=== PATIENT | male | born 1955 | race Caucasian/White ===

== ENCOUNTER 2018-04-22 01:01 | Inpatient (IN) | payer MEDICARE ==
[2018-04-22] MEDS: NS 1,000 ML IV ×2 (01:30→02:00)
[2018-04-22 01:34] LABS: BASO # 0.1 10^3/uL (0.0-0.2); BASO % 0.6 % (0.0-1.0); EOS # 0.1 10^3/uL (0.0-0.50); EOS % 0.5 % (0.0-3.0); HEMATOCRIT 49.9 % (42.0-52.0); HEMOGLOBIN 16.4 g/dl (13.5-17.5); IMMATURE GRANULOCYTE % 0.4 % (0-3.0); LYMPH # 3.5 10^3/uL (1.5-4.5); LYMPH % 26.5 % (24.0-44.0); MEAN CORPUSCULAR HEMOGLOBIN 30.7 pg (27.0-33.0); MEAN CORPUSCULAR HGB CONC 32.9 g/dl (32.0-36.5); MEAN CORPUSCULAR VOLUME 93.3 fl (80.0-96.0); MONO # 0.4 10^3/uL (0.0-0.8); MONO % 3.1 % (0.0-5.0); NEUTROPHILS % 68.9 % (36.0-66.0); PLATELET COUNT, AUTOMATED 257 10^3/uL (150-450); RED BLOOD COUNT 5.35 10^6/uL (4.30-6.10); RED CELL DISTRIBUTION WIDTH 13.5 % (11.5-14.5); WHITE BLOOD COUNT 13.1 10^3/uL (4.0-10.0)
[2018-04-22 01:37] LABS: BEDSIDE GLUCOSE 544 MG/DL (80-115)
[2018-04-22] MEDS ORDERED: HumuLIN R (REGULAR) INSULIN (NovoLIN R) **100U/ML** PER UNIT As Ordered (01:37)
[2018-04-22] MEDS: HumuLIN R (REGULAR) INSULIN (NovoLIN R) **100U/ML** PER UNIT IV ×2 (01:39→02:30)
[2018-04-22] MEDS: INSULIN HUMAN REGULAR 100 UNITS in NS 99 ML IV ×2 (01:45→05:19)
[2018-04-22] MEDS: METOCLOPRAMIDE INJ 10MG/2ML VIAL (J2765) IV (01:59)
[2018-04-22 02:07] LABS: ACETONE/KETONE > 46.00 MG/DL (<2.81); ALBUMIN 3.4 GM/DL (3.2-5.2); ALKALINE PHOSPHATASE 58 U/L (45-117); ALT/SGPT 19 U/L (12-78); ANION GAP 32 MEQ/L (8-16); AST/SGOT 11 U/L (7-37); BILIRUBIN,DIRECT 0.2 MG/DL (0.0-0.2); BILIRUBIN,TOTAL 0.5 MG/DL (0.2-1.0); BLOOD UREA NITROGEN 38 MG/DL (7-18); CALCIUM LEVEL 8.8 MG/DL (8.8-10.2); CARBON DIOXIDE LEVEL 8 MEQ/L (21-32); CHLORIDE LEVEL 97 MEQ/L (98-107); CPK CREATINE PHOSPHOKINASE 44 U/L (39-308); CREATININE FOR GFR 2.12 MG/DL (0.70-1.30); GLOMERULAR FILTRATION RATE 33.5 (>49); GLUCOSE, FASTING 567 MG/DL (70-100); LIPASE 37 U/L (73-393); MB/CK RELATIVE INDEX 2.95 (< OR =4); POTASSIUM SERUM 4.7 MEQ/L (3.5-5.1); SODIUM LEVEL 137 MEQ/L (136-145); TOTAL PROTEIN 6.8 GM/DL (6.4-8.2); TROPONIN I < 0.02 NG/ML (< 0.10)
[2018-04-22 02:27] LABS: BEDSIDE GLUCOSE 519 MG/DL (80-115)
[2018-04-22 02:59] LABS: VENOUS BASE EXCESS -23.7 (-2.0-2.0); VENOUS HCO3 5.6 MEQ/L (23.0-27.0); VENOUS PARTIAL PRESSURE CO2 21.9 mmHg (38.0-50.0); VENOUS PARTIAL PRESSURE O2 75.6 mmHg (30.0-50.0); VENOUS PH 7.027 UNITS (7.330-7.430); VENOUS STANDARD HCO3 8.6 MEQ/L; VENOUS TOTAL CO2 6.3 MEQ/L (24.0-28.0)
[2018-04-22] MEDS ORDERED: IPRATROPIUM 0.5MG/ALBUTEROL 2.5MG INH SOL UD 3ML (DUONEB)(J7620) NEB (03:00)
[2018-04-22 03:03] LABS: BEDSIDE GLUCOSE 479 MG/DL (80-115)
[2018-04-22 03:21] LABS: ESTIMATED AVERAGE GLUCOSE 312 MG/DL (60-110); HEMOGLOBIN A1c 12.5 %
[2018-04-22] MEDS ORDERED: ONDANSETRON 4MG/2ML VIAL (J2405) IV (03:30)
[2018-04-22] MEDS: NICOTINE 21MG/24HR 1 EA TRANSDERMAL TD (03:51)
[2018-04-22] MEDS: SODIUM BICARBONATE 8.4% INJ 50 ML SYRINGE IV (03:51)
[2018-04-22 03:59] LABS: BEDSIDE GLUCOSE 449 MG/DL (80-115)
[2018-04-22 04:40] LABS: APPEARANCE, URINE CLEAR (CLEAR); BACTERIA, URINE AUTO NEGATIVE (NEGATIVE); BILIRUBIN, URINE AUTO NEGATIVE (NEGATIVE); BLOOD, URINE BLOOD 1+ (NEGATIVE); COLOR, URINE YELLOW (YELLOW); GLUCOSE, URINE (UA) AUTO 3+ mg/dL (NEGATIVE); KETONE, URINE AUTO 2+ mg/dL (NEGATIVE); LEUKOCYTE ESTERASE, URINE AUTO NEGATIVE (NEGATIVE); NITRITE, URINE AUTO NEGATIVE (NEGATIVE); PROTEIN, URINE AUTO 2+ mg/dL (NEGATIVE); RBC, URINE AUTO 0 /HPF (0-3); SQUAMOUS EPITHELIAL CELL UR AU 0 /HPF (0-6); UROBILINOGEN, URINE AUTO 0.2 mg/dL (0.0-2.0); WBC, URINE AUTO 0 /HPF (0-3)
[2018-04-22 04:55] LABS: VENOUS HCO3 7.8 MEQ/L (23.0-27.0); VENOUS O2 SATURATION 92.3 % (60.0-80.0); VENOUS PARTIAL PRESSURE CO2 22.5 mmHg (38.0-50.0); VENOUS PARTIAL PRESSURE O2 68.3 mmHg (30.0-50.0); VENOUS PH 7.157 UNITS (7.330-7.430); VENOUS STANDARD HCO3 10.8 MEQ/L; VENOUS TOTAL CO2 8.5 MEQ/L (24.0-28.0)
[2018-04-22 05:20] LABS: ACETONE/KETONE > 46.00 MG/DL (<2.81)
[2018-04-22 05:21] LABS: ANION GAP 29 MEQ/L (8-16); BLOOD UREA NITROGEN 37 MG/DL (7-18); CALCIUM LEVEL 7.5 MG/DL (8.8-10.2); CARBON DIOXIDE LEVEL 11 MEQ/L (21-32); CHLORIDE LEVEL 101 MEQ/L (98-107); GLOMERULAR FILTRATION RATE 43.3 (>49); GLUCOSE, FASTING 423 MG/DL (70-100); POTASSIUM SERUM 3.6 MEQ/L (3.5-5.1); SODIUM LEVEL 141 MEQ/L (136-145)
[2018-04-22 05:25] LABS: BEDSIDE GLUCOSE 382 MG/DL (80-115)
[2018-04-22] MEDS ORDERED: GLUCAGON FOR INJ 1 MG VIAL (J1610) SC (05:30)
[2018-04-22] MEDS ORDERED: GLUCOSE 4 GM CHEW TABLET PO (05:30)
[2018-04-22] MEDS ORDERED: DEXTROSE 50% 50 ML SYRINGE IV (05:30)
[2018-04-22 06:00] LABS: BEDSIDE GLUCOSE 325 MG/DL (80-115)
[2018-04-22] MEDS: INSULIN IV RATE CHANGE DOCUMENTATION ML/HR XX ×3 (06:04→17:05)
[2018-04-22] MEDS: POTASSIUM CHLORIDE 10 MEQ SR TABLET PO (06:21)
[2018-04-22] MEDS ORDERED: INFLUENZA VIRUS VACCINE HIGH DOSE 0.5 ML SYRINGE (90662) IM (06:30)
[2018-04-22] MEDS ORDERED: PREVNAR 13 VACCINE SYRINGE (CPT CODE:90670) IM (06:30)
[2018-04-22] MEDS: KCL 20MEQ IN 0.45NS 1000ML 1,000 ML IV ×2 (06:46→14:47)
[2018-04-22 06:52] LABS: BEDSIDE GLUCOSE 258 MG/DL (80-115)
[2018-04-22 07:53] LABS: BEDSIDE GLUCOSE 245 MG/DL (80-115)
[2018-04-22] MEDS: PREGABALIN 100 MG CAP (LYRICA) PO ×3 (08:08→20:25)
[2018-04-22] MEDS: APIXABAN 5 MG TAB (ELIQUIS) PO ×2 (08:08→20:25)
[2018-04-22] MEDS: ATORVASTATIN 20 MG TAB PO (08:08)
[2018-04-22] MEDS: PANTOPRAZOLE 40MG INJ (PROTONIX) (C9113) IV (08:08)
[2018-04-22 08:31] LABS: CPK CREATINE PHOSPHOKINASE 55 U/L (39-308); MB/CK RELATIVE INDEX 3.45 (< OR =4); TROPONIN I < 0.02 NG/ML (< 0.10)
[2018-04-22 08:56] LABS: BEDSIDE GLUCOSE 248 MG/DL (80-115)
[2018-04-22 09:54] LABS: BEDSIDE GLUCOSE 251 MG/DL (80-115)
[2018-04-22 10:47] LABS: VENOUS BASE EXCESS -7.6 (-2.0-2.0); VENOUS HCO3 15.5 MEQ/L (23.0-27.0); VENOUS O2 SATURATION 99.3 % (60.0-80.0); VENOUS PARTIAL PRESSURE CO2 26.2 mmHg (38.0-50.0); VENOUS STANDARD HCO3 18.5 MEQ/L; VENOUS TOTAL CO2 16.3 MEQ/L (24.0-28.0)
[2018-04-22 11:04] LABS: BEDSIDE GLUCOSE 283 MG/DL (80-115)
[2018-04-22 11:21] LABS: ANION GAP 20 MEQ/L (8-16); BLOOD UREA NITROGEN 37 MG/DL (7-18); CALCIUM LEVEL 8.1 MG/DL (8.8-10.2); CARBON DIOXIDE LEVEL 16 MEQ/L (21-32); CHLORIDE LEVEL 106 MEQ/L (98-107); CREATININE FOR GFR 1.56 MG/DL (0.70-1.30); GLOMERULAR FILTRATION RATE 47.8 (>49); GLUCOSE, FASTING 256 MG/DL (70-100); SODIUM LEVEL 142 MEQ/L (136-145)
[2018-04-22 11:55] LABS: BEDSIDE GLUCOSE 257 MG/DL (80-115)
[2018-04-22 13:20] LABS: BEDSIDE GLUCOSE 248 MG/DL (80-115)
[2018-04-22 14:06] LABS: BEDSIDE GLUCOSE 260 MG/DL (80-115)
[2018-04-22 14:12] LABS: ACETONE/KETONE > 46.00 MG/DL (<2.81)
[2018-04-22 15:06] LABS: BEDSIDE GLUCOSE 244 MG/DL (80-115)
[2018-04-22 15:21] LABS: ACETONE/KETONE > 46.00 MG/DL (<2.81)
[2018-04-22 16:19] LABS: BEDSIDE GLUCOSE 209 MG/DL (80-115)
[2018-04-22 16:40] LABS: VENOUS BASE EXCESS -5.2 (-2.0-2.0); VENOUS HCO3 19.9 MEQ/L (23.0-27.0); VENOUS O2 SATURATION 97.8 % (60.0-80.0); VENOUS PARTIAL PRESSURE CO2 37.4 mmHg (38.0-50.0); VENOUS PARTIAL PRESSURE O2 102.8 mmHg (30.0-50.0); VENOUS PH 7.344 UNITS (7.330-7.430); VENOUS STANDARD HCO3 20.3 MEQ/L; VENOUS TOTAL CO2 21.1 MEQ/L (24.0-28.0)
[2018-04-22 17:05] LABS: BEDSIDE GLUCOSE 188 MG/DL (80-115)
[2018-04-22 17:24] LABS: ANION GAP 12 MEQ/L (8-16); BLOOD UREA NITROGEN 33 MG/DL (7-18); CALCIUM LEVEL 8.2 MG/DL (8.8-10.2); CARBON DIOXIDE LEVEL 23 MEQ/L (21-32); CHLORIDE LEVEL 106 MEQ/L (98-107); CREATININE FOR GFR 1.49 MG/DL (0.70-1.30); GLOMERULAR FILTRATION RATE 50.4 (>49); GLUCOSE, FASTING 206 MG/DL (70-100); POTASSIUM SERUM 3.9 MEQ/L (3.5-5.1); SODIUM LEVEL 141 MEQ/L (136-145)
[2018-04-22] MEDS: LEVEMIR (INSULIN DETEMIR) 1 UNITS/0.01ML SC (18:03)
[2018-04-22 18:08] LABS: BEDSIDE GLUCOSE 176 MG/DL (80-115)
[2018-04-22 19:01] LABS: BEDSIDE GLUCOSE 179 MG/DL (80-115)
[2018-04-22 19:19] LABS: VENOUS BASE EXCESS -3.4 (-2.0-2.0); VENOUS HCO3 20.3 MEQ/L (23.0-27.0); VENOUS O2 SATURATION 98.9 % (60.0-80.0); VENOUS PARTIAL PRESSURE CO2 32.7 mmHg (38.0-50.0); VENOUS PARTIAL PRESSURE O2 193.6 mmHg (30.0-50.0); VENOUS STANDARD HCO3 21.7 MEQ/L; VENOUS TOTAL CO2 21.3 MEQ/L (24.0-28.0)
[2018-04-22 19:56] LABS: BEDSIDE GLUCOSE 178 MG/DL (80-115)
[2018-04-22 20:10] LABS: ACETONE/KETONE 23.45 MG/DL (<2.81); ANION GAP 13 MEQ/L (8-16); BLOOD UREA NITROGEN 30 MG/DL (7-18); CALCIUM LEVEL 7.6 MG/DL (8.8-10.2); CARBON DIOXIDE LEVEL 21 MEQ/L (21-32); CHLORIDE LEVEL 107 MEQ/L (98-107); CREATININE FOR GFR 1.35 MG/DL (0.70-1.30); GLOMERULAR FILTRATION RATE 56.5 (>49); GLUCOSE, FASTING 175 MG/DL (70-100); POTASSIUM SERUM 3.8 MEQ/L (3.5-5.1); SODIUM LEVEL 141 MEQ/L (136-145)
[2018-04-22 21:10] LABS: ACETONE/KETONE 26.12 MG/DL (<2.81)
[2018-04-22 22:03] LABS: BEDSIDE GLUCOSE 294 MG/DL (80-115)
[2018-04-22] MEDS: HumaLOG INSULIN (NovoLOG) PER UNIT SC (22:13)
[2018-04-22 23:07] LABS: VENOUS BASE EXCESS -1.9 (-2.0-2.0); VENOUS HCO3 22.3 MEQ/L (23.0-27.0); VENOUS O2 SATURATION 97.7 % (60.0-80.0); VENOUS PARTIAL PRESSURE CO2 36.5 mmHg (38.0-50.0); VENOUS PH 7.404 UNITS (7.330-7.430); VENOUS STANDARD HCO3 22.9 MEQ/L; VENOUS TOTAL CO2 23.4 MEQ/L (24.0-28.0)
[2018-04-22 23:23] LABS: ANION GAP 9 MEQ/L (8-16); BLOOD UREA NITROGEN 28 MG/DL (7-18); CALCIUM LEVEL 7.5 MG/DL (8.8-10.2); CARBON DIOXIDE LEVEL 23 MEQ/L (21-32); CHLORIDE LEVEL 106 MEQ/L (98-107); CREATININE FOR GFR 1.54 MG/DL (0.70-1.30); GLOMERULAR FILTRATION RATE 48.5 (>49); GLUCOSE, FASTING 312 MG/DL (70-100); POTASSIUM SERUM 3.9 MEQ/L (3.5-5.1); SODIUM LEVEL 138 MEQ/L (136-145)
[2018-04-23 03:14] LABS: VENOUS BASE EXCESS -1.7 (-2.0-2.0); VENOUS HCO3 21.8 MEQ/L (23.0-27.0); VENOUS O2 SATURATION 97.4 % (60.0-80.0); VENOUS PARTIAL PRESSURE CO2 33.4 mmHg (38.0-50.0); VENOUS PARTIAL PRESSURE O2 94.3 mmHg (30.0-50.0); VENOUS PH 7.432 UNITS (7.330-7.430); VENOUS TOTAL CO2 22.8 MEQ/L (24.0-28.0)
[2018-04-23 03:34] LABS: ANION GAP 11 MEQ/L (8-16); BLOOD UREA NITROGEN 28 MG/DL (7-18); CARBON DIOXIDE LEVEL 23 MEQ/L (21-32); CHLORIDE LEVEL 108 MEQ/L (98-107); CREATININE FOR GFR 1.46 MG/DL (0.70-1.30); GLOMERULAR FILTRATION RATE 51.6 (>49); GLUCOSE, FASTING 296 MG/DL (70-100); POTASSIUM SERUM 3.7 MEQ/L (3.5-5.1); SODIUM LEVEL 142 MEQ/L (136-145)
[2018-04-23 07:15] LABS: BASO % 0.5 % (0.0-1.0); EOS # 0.3 10^3/uL (0.0-0.50); EOS % 3.7 % (0.0-3.0); HEMATOCRIT 38.7 % (42.0-52.0); IMMATURE GRANULOCYTE % 0.1 % (0-3.0); LYMPH # 2.8 10^3/uL (1.5-4.5); LYMPH % 32.5 % (24.0-44.0); MEAN CORPUSCULAR HEMOGLOBIN 31.2 pg (27.0-33.0); MEAN CORPUSCULAR HGB CONC 35.7 g/dl (32.0-36.5); MEAN CORPUSCULAR VOLUME 87.4 fl (80.0-96.0); MONO # 0.6 10^3/uL (0.0-0.8); MONO % 6.8 % (0.0-5.0); NEUTROPHILS # 4.9 10^3/uL (1.8-7.7); NEUTROPHILS % 56.4 % (36.0-66.0); PLATELET COUNT, AUTOMATED 166 10^3/uL (150-450); RED BLOOD COUNT 4.43 10^6/uL (4.30-6.10); RED CELL DISTRIBUTION WIDTH 13.3 % (11.5-14.5); WHITE BLOOD COUNT 8.6 10^3/uL (4.0-10.0)
[2018-04-23 07:22] LABS: HEMOGLOBIN 13.8 g/dl (13.5-17.5)
[2018-04-23 07:36] LABS: ACETONE/KETONE 19.71 MG/DL (<2.81)
[2018-04-23] MEDS: LEVEMIR (INSULIN DETEMIR) 1 UNITS/0.01ML SC ×2 (07:53→21:00)
[2018-04-23] MEDS: HumaLOG INSULIN (NovoLOG) PER UNIT SC ×4 (07:54→21:04)
[2018-04-23] MEDS: MIRALAX *UNIT DOSE* 17GM PACKET PO (08:51)
[2018-04-23] MEDS: PREGABALIN 100 MG CAP (LYRICA) PO ×3 (08:51→21:03)
[2018-04-23] MEDS: PANTOPRAZOLE 40MG INJ (PROTONIX) (C9113) IV (08:51)
[2018-04-23] MEDS: ATORVASTATIN 20 MG TAB PO (08:51)
[2018-04-23] MEDS: SENOKOT S TAB PO (08:51)
[2018-04-23] MEDS: APIXABAN 5 MG TAB (ELIQUIS) PO ×2 (08:51→21:03)
[2018-04-23] MEDS ORDERED: LEVEMIR (INSULIN DETEMIR) 1 UNITS/0.01ML SC (09:00)
[2018-04-23 11:59] LABS: BEDSIDE GLUCOSE 313 MG/DL (80-115)
[2018-04-23 17:08] LABS: BEDSIDE GLUCOSE 386 MG/DL (80-115)
[2018-04-23 20:51] LABS: BEDSIDE GLUCOSE 492 MG/DL (80-115)
[2018-04-23] MEDS: NICOTINE 21MG/24HR 1 EA TRANSDERMAL TD (21:04)
[2018-04-24 06:05] LABS: BEDSIDE GLUCOSE 129 MG/DL (80-115)
[2018-04-24 06:37] LABS: BASO % 0.6 % (0.0-1.0); EOS # 0.3 10^3/uL (0.0-0.50); EOS % 5.1 % (0.0-3.0); HEMATOCRIT 37.6 % (42.0-52.0); HEMOGLOBIN 13.3 g/dl (13.5-17.5); IMMATURE GRANULOCYTE % 0.2 % (0-3.0); LYMPH # 2.4 10^3/uL (1.5-4.5); LYMPH % 36.4 % (24.0-44.0); MEAN CORPUSCULAR HEMOGLOBIN 31.1 pg (27.0-33.0); MEAN CORPUSCULAR HGB CONC 35.4 g/dl (32.0-36.5); MEAN CORPUSCULAR VOLUME 87.9 fl (80.0-96.0); MONO # 0.5 10^3/uL (0.0-0.8); MONO % 7.7 % (0.0-5.0); NEUTROPHILS # 3.3 10^3/uL (1.8-7.7); PLATELET COUNT, AUTOMATED 133 10^3/uL (150-450); RED BLOOD COUNT 4.28 10^6/uL (4.30-6.10); WHITE BLOOD COUNT 6.5 10^3/uL (4.0-10.0)
[2018-04-24 07:37] LABS: ANION GAP 7 MEQ/L (8-16); BLOOD UREA NITROGEN 20 MG/DL (7-18); CALCIUM LEVEL 8.4 MG/DL (8.8-10.2); CARBON DIOXIDE LEVEL 30 MEQ/L (21-32); CHLORIDE LEVEL 107 MEQ/L (98-107); CREATININE FOR GFR 0.77 MG/DL (0.70-1.30); GLOMERULAR FILTRATION RATE > 60.0 (>49); GLUCOSE, FASTING 124 MG/DL (70-100); MAGNESIUM LEVEL 1.7 MG/DL (1.8-2.4); POTASSIUM SERUM 3.4 MEQ/L (3.5-5.1); SODIUM LEVEL 144 MEQ/L (136-145)
[2018-04-24] MEDS: APIXABAN 5 MG TAB (ELIQUIS) PO ×2 (08:07→21:16)
[2018-04-24] MEDS: HumaLOG INSULIN (NovoLOG) PER UNIT SC ×4 (08:07→21:00)
[2018-04-24] MEDS: PREGABALIN 100 MG CAP (LYRICA) PO ×3 (08:07→21:16)
[2018-04-24] MEDS: PANTOPRAZOLE 40MG TAB (PROTONIX) PO (08:07)
[2018-04-24] MEDS: ATORVASTATIN 20 MG TAB PO (08:07)
[2018-04-24] MEDS: LEVEMIR (INSULIN DETEMIR) 1 UNITS/0.01ML SC ×3 (08:07→21:00)
[2018-04-24] MEDS: MAG SULF 1GM/100ML (MAG RUN) 1 GM in APPROPRIATE DILUENT 1 EA IV (08:37)
[2018-04-24] MEDS: POTASSIUM CHLORIDE 10 MEQ SR TABLET PO (08:38)
[2018-04-24] MEDS: PREVNAR 13 VACCINE SYRINGE (CPT CODE:90670) IM (08:39)
[2018-04-24] MEDS: INFLUENZA VIRUS VACCINE HIGH DOSE 0.5 ML SYRINGE (90662) IM (08:39)
[2018-04-24 11:44] LABS: BEDSIDE GLUCOSE 218 MG/DL (80-115)
[2018-04-24 16:55] LABS: BEDSIDE GLUCOSE 275 MG/DL (80-115)
[2018-04-24] MEDS: NICOTINE 21MG/24HR 1 EA TRANSDERMAL TD (21:15)
[2018-04-24] MEDS: ACETAMINOPHEN 500 MG TAB PO (21:16)
[2018-04-25 06:03] LABS: BEDSIDE GLUCOSE 312 MG/DL (80-115)
[2018-04-25 08:13] LABS: BASO % 0.3 % (0.0-1.0); EOS # 0.4 10^3/uL (0.0-0.50); EOS % 7.2 % (0.0-3.0); HEMATOCRIT 40.7 % (42.0-52.0); HEMOGLOBIN 14.3 g/dl (13.5-17.5); IMMATURE GRANULOCYTE % 0.2 % (0-3.0); LYMPH # 1.6 10^3/uL (1.5-4.5); LYMPH % 26.9 % (24.0-44.0); MEAN CORPUSCULAR HEMOGLOBIN 30.8 pg (27.0-33.0); MEAN CORPUSCULAR HGB CONC 35.1 g/dl (32.0-36.5); MEAN CORPUSCULAR VOLUME 87.7 fl (80.0-96.0); MONO # 0.4 10^3/uL (0.0-0.8); MONO % 5.7 % (0.0-5.0); NEUTROPHILS # 3.6 10^3/uL (1.8-7.7); NEUTROPHILS % 59.7 % (36.0-66.0); PLATELET COUNT, AUTOMATED 132 10^3/uL (150-450); RED BLOOD COUNT 4.64 10^6/uL (4.30-6.10); RED CELL DISTRIBUTION WIDTH 12.9 % (11.5-14.5); WHITE BLOOD COUNT 6.1 10^3/uL (4.0-10.0)
[2018-04-25] MEDS: LEVEMIR (INSULIN DETEMIR) 1 UNITS/0.01ML SC (08:32)
[2018-04-25] MEDS: HumaLOG INSULIN (NovoLOG) PER UNIT SC (08:32)
[2018-04-25] MEDS: ATORVASTATIN 20 MG TAB PO (08:33)
[2018-04-25] MEDS: APIXABAN 5 MG TAB (ELIQUIS) PO (08:33)
[2018-04-25] MEDS: PREGABALIN 100 MG CAP (LYRICA) PO (08:33)
[2018-04-25] MEDS: PANTOPRAZOLE 40MG TAB (PROTONIX) PO (08:33)
[2018-04-25 08:39] LABS: ANION GAP 4 MEQ/L (8-16); BLOOD UREA NITROGEN 17 MG/DL (7-18); CALCIUM LEVEL 9.1 MG/DL (8.8-10.2); CARBON DIOXIDE LEVEL 38 MEQ/L (21-32); CHLORIDE LEVEL 100 MEQ/L (98-107); CREATININE FOR GFR 0.76 MG/DL (0.70-1.30); GLOMERULAR FILTRATION RATE > 60.0 (>49); GLUCOSE, FASTING 164 MG/DL (70-100); MAGNESIUM LEVEL 1.8 MG/DL (1.8-2.4); POTASSIUM SERUM 3.5 MEQ/L (3.5-5.1); SODIUM LEVEL 142 MEQ/L (136-145)
[2018-04-26 02:45] LABS: BEDSIDE GLUCOSE 185 MG/DL (80-115)
== END 2018-04-25 11:30 | disposition home or self-care (01) | DRG 638 ==
LOC: M MS5PR 04-23 10:50 → M ED 01:01 → M ED INP 02:46 → M ICU 05:29
DX: E11.10 Type 2 diabetes mellitus with ketoacidosis without coma (principal); N17.9 Acute kidney failure, unspecified; J44.9 Chronic obstructive pulmonary disease, unspecified; E11.40 Type 2 diabetes mellitus with diabetic neuropathy, unspecified; F17.210 Nicotine dependence, cigarettes, uncomplicated; E86.0 Dehydration; N18.3 Chronic kidney disease, stage 3 (moderate); E11.22 Type 2 diabetes mellitus with diabetic chronic kidney disease; E78.5 Hyperlipidemia, unspecified; I12.9 Hypertensive chronic kidney disease with stage 1 through stage 4 chronic kidney disease, or unspecified chronic kidney disease; Z66 Do not resuscitate; Z79.4 Long term (current) use of insulin; Z88.6 Allergy status to analgesic agent; Z79.01 Long term (current) use of anticoagulants; Z79.899 Other long term (current) drug therapy; Z86.718 Personal history of other venous thrombosis and embolism; Z91.14 Patient's other noncompliance with medication regimen

== ENCOUNTER → 2018-05-04 | Outpatient (REF) | payer MEDICARE | LOC: M SFHCPLAZ 09:40 | DX: E11.8 Type 2 diabetes mellitus with unspecified complications (principal); Z13.220 Encounter for screening for lipoid disorders ==

== ENCOUNTER → 2018-05-11 | Outpatient (CLI) | payer MEDICARE ==
[2018-05-11 14:16] LABS: CHOLESTEROL LEVEL 156 MG/DL (<200); HDL CHOLESTEROL 52 MG/DL (>40); LDL CHOLESTEROL 47 MG/DL (<100); NON-HDL-C 104 MG/DL; TRIGLYCERIDES LEVEL 284 MG/DL (<150)
[2018-05-11 14:58] LABS: CREATININE, URINE 93.5 MG/DL; MAU/CREAT RATIO 2117.7 MCG/MG (0.0-30.0)
== END ==
LOC: M LAB 12:48
DX: Z13.220 Encounter for screening for lipoid disorders (principal); E11.8 Type 2 diabetes mellitus with unspecified complications
CPT/HCPCS: 80061

== ENCOUNTER → 2018-05-11 | Outpatient (CLI) | payer MEDICARE | LOC: M RAD 12:45 | DX: Z12.2 Encounter for screening for malignant neoplasm of respiratory organs (principal); J43.9 Emphysema, unspecified; Z87.891 Personal history of nicotine dependence; Z13.220 Encounter for screening for lipoid disorders; E11.8 Type 2 diabetes mellitus with unspecified complications | CPT/HCPCS: G0297 ==

== ENCOUNTER → 2018-05-31 | Outpatient (REF) | payer MEDICARE | LOC: M SFHCPLAZ 14:33 | DX: E11.40 Type 2 diabetes mellitus with diabetic neuropathy, unspecified (principal); R60.0 Localized edema; B19.20 Unspecified viral hepatitis C without hepatic coma; Z53.8 Procedure and treatment not carried out for other reasons ==

== ENCOUNTER → 2018-06-24 | Outpatient (CLI) | payer MEDICARE ==
[2018-06-24 12:03] LABS: HEMATOCRIT 41.3 % (42.0-52.0); HEMOGLOBIN 14.2 g/dl (13.5-17.5); MEAN CORPUSCULAR HEMOGLOBIN 31.3 pg (27.0-33.0); MEAN CORPUSCULAR HGB CONC 34.4 g/dl (32.0-36.5); MEAN CORPUSCULAR VOLUME 91.2 fl (80.0-96.0); PLATELET COUNT, AUTOMATED 228 10^3/uL (150-450); RED BLOOD COUNT 4.53 10^6/uL (4.30-6.10); RED CELL DISTRIBUTION WIDTH 12.4 % (11.5-14.5)
[2018-06-24 12:31] LABS: ALBUMIN 3.2 GM/DL (3.2-5.2); ALBUMIN/GLOBULIN RATIO 1.14 (1.00-1.93); ALKALINE PHOSPHATASE 52 U/L (45-117); ALT/SGPT 43 U/L (12-78); ANION GAP 9 MEQ/L (8-16); AST/SGOT 18 U/L (7-37); BILIRUBIN,TOTAL 0.4 MG/DL (0.2-1.0); BLOOD UREA NITROGEN 21 MG/DL (7-18); CALCIUM LEVEL 8.7 MG/DL (8.8-10.2); CARBON DIOXIDE LEVEL 32 MEQ/L (21-32); CHLORIDE LEVEL 97 MEQ/L (98-107); CREATININE FOR GFR 1.03 MG/DL (0.70-1.30); GLOMERULAR FILTRATION RATE > 60.0 (>49); GLUCOSE, FASTING 354 MG/DL (70-100); NT-PRO BNP 46 PG/ML (<125); POTASSIUM SERUM 4.3 MEQ/L (3.5-5.1); SODIUM LEVEL 138 MEQ/L (136-145)
[2018-06-24 12:36] LABS: VITAMIN B12 LEVEL 362 PG/ML (247-911)
[2018-06-24 13:18] LABS: ESTIMATED AVERAGE GLUCOSE 292 MG/DL (60-110); HEMOGLOBIN A1c 11.8 %
== END ==
LOC: M LAB 11:24
DX: E11.40 Type 2 diabetes mellitus with diabetic neuropathy, unspecified (principal); B19.20 Unspecified viral hepatitis C without hepatic coma; Z79.899 Other long term (current) drug therapy; R60.0 Localized edema; F17.210 Nicotine dependence, cigarettes, uncomplicated; E78.5 Hyperlipidemia, unspecified
CPT/HCPCS: 82607

== ENCOUNTER 2018-06-29 12:04 | Emergency (ER) | payer MEDICARE ==
[2018-06-29] MEDS: HumuLIN R (REGULAR) INSULIN (NovoLIN R) **100U/ML** PER UNIT IV ×4 (12:54→14:04)
[2018-06-29] MEDS: NS 1,000 ML IV ×2 (12:54)
[2018-06-29 13:04] LABS: VENOUS BASE EXCESS 2.6 (-2.0-2.0); VENOUS HCO3 28.7 MEQ/L (23.0-27.0); VENOUS O2 SATURATION 81.2 % (60.0-80.0); VENOUS PARTIAL PRESSURE CO2 49.9 mmHg (38.0-50.0); VENOUS PH 7.378 UNITS (7.330-7.430); VENOUS STANDARD HCO3 26.3 MEQ/L; VENOUS TOTAL CO2 30.3 MEQ/L (24.0-28.0)
[2018-06-29 13:09] LABS: BASO # 0.1 10^3/uL (0.0-0.2); BASO % 0.8 % (0.0-1.0); EOS # 0.4 10^3/uL (0.0-0.50); EOS % 4.1 % (0.0-3.0); HEMATOCRIT 41.2 % (42.0-52.0); HEMOGLOBIN 14.6 g/dl (13.5-17.5); IMMATURE GRANULOCYTE % 0.2 % (0-3.0); LYMPH # 2.5 10^3/uL (1.5-4.5); LYMPH % 28.8 % (24.0-44.0); MEAN CORPUSCULAR HEMOGLOBIN 31.5 pg (27.0-33.0); MEAN CORPUSCULAR HGB CONC 35.4 g/dl (32.0-36.5); MONO # 0.5 10^3/uL (0.0-0.8); MONO % 5.7 % (0.0-5.0); NEUTROPHILS # 5.3 10^3/uL (1.8-7.7); NEUTROPHILS % 60.4 % (36.0-66.0); PLATELET COUNT, AUTOMATED 218 10^3/uL (150-450); RED BLOOD COUNT 4.63 10^6/uL (4.30-6.10); RED CELL DISTRIBUTION WIDTH 12.4 % (11.5-14.5); WHITE BLOOD COUNT 8.8 10^3/uL (4.0-10.0)
[2018-06-29 13:48] LABS: ANION GAP 8 MEQ/L (8-16); BLOOD UREA NITROGEN 25 MG/DL (7-18); CALCIUM LEVEL 9.1 MG/DL (8.8-10.2); CARBON DIOXIDE LEVEL 30 MEQ/L (21-32); CHLORIDE LEVEL 95 MEQ/L (98-107); CREATININE FOR GFR 1.26 MG/DL (0.70-1.30); GLOMERULAR FILTRATION RATE > 60.0 (>49); GLUCOSE, FASTING 477 MG/DL (70-100); POTASSIUM SERUM 4.3 MEQ/L (3.5-5.1); SODIUM LEVEL 133 MEQ/L (136-145)
[2018-06-29 13:52] LABS: BEDSIDE GLUCOSE 359 MG/DL (80-115)
[2018-06-29 14:27] LABS: KETONE, URINE AUTO RFX 1+ mg/dL (NEGATIVE); LEUKOCYTE ESTERASE UR AUTO RFX NEGATIVE (NEGATIVE); NITRITE, URINE AUTO RFX NEGATIVE (NEGATIVE); RBC, URINE AUTO RFX 2 /HPF (0-3); SQUAM EPITHELIAL CELL UR AURFX 0 /HPF (0-6); WBC, URINE AUTO RFX 0 /HPF (0-3)
[2018-06-29 14:48] LABS: BEDSIDE GLUCOSE 228 MG/DL (80-115)
[2018-07-04 15:31] LABS: BEDSIDE GLUCOSE 539 MG/DL (80-115)
== END 2018-06-29 15:32 | disposition home or self-care (01) ==
LOC: M ED 12:04
DX: E10.65 Type 1 diabetes mellitus with hyperglycemia (principal); J44.9 Chronic obstructive pulmonary disease, unspecified; E10.40 Type 1 diabetes mellitus with diabetic neuropathy, unspecified; B19.20 Unspecified viral hepatitis C without hepatic coma; F19.11 Other psychoactive substance abuse, in remission; Z86.718 Personal history of other venous thrombosis and embolism; F17.210 Nicotine dependence, cigarettes, uncomplicated; Z91.19 Patient's noncompliance with other medical treatment and regimen; Z88.6 Allergy status to analgesic agent; Z79.899 Other long term (current) drug therapy; Z79.01 Long term (current) use of anticoagulants; Z79.51 Long term (current) use of inhaled steroids; Z92.29 Personal history of other drug therapy; R73.09 Other abnormal glucose
CPT/HCPCS: 71045

== ENCOUNTER → 2018-09-16 | Outpatient (REF) | payer MEDICARE ==
[~2018-09-16] MED LIST: ADV100INH INH; AMLO2.5T3 PO; ATOR40TA75 PO; ELIQ5TAB PO; HUMA100I3 SC; INSUDET SC; INSUHUMDS SC; LEVE1INJ5 SC; PREG100CA PO; TYLE500T78 PO; VENTAER INH
[2018-09-16 14:42] LABS: ALBUMIN 3.6 GM/DL (3.2-5.2); ALT/SGPT 23 U/L (12-78); BILIRUBIN,TOTAL 0.5 MG/DL (0.2-1.0); BLOOD UREA NITROGEN 28 MG/DL (7-18); CALCIUM LEVEL 9.6 MG/DL (8.8-10.2); CARBON DIOXIDE LEVEL 32 MEQ/L (21-32); CHLORIDE LEVEL 99 MEQ/L (98-107); CHOLESTEROL LEVEL 292 MG/DL (<200); CHOLESTEROL RISK RATIO 4.562 (<5); CREATININE FOR GFR 1.19 MG/DL (0.70-1.30); GLOMERULAR FILTRATION RATE > 60.0 (>49); GLUCOSE, FASTING 279 MG/DL (70-100); HDL CHOLESTEROL 64 MG/DL (>40); LDL CHOLESTEROL 185 MG/DL (<100); NON-HDL-C 228 MG/DL; POTASSIUM SERUM 4.4 MEQ/L (3.5-5.1); SODIUM LEVEL 137 MEQ/L (136-145); TOTAL PROTEIN 6.7 GM/DL (6.4-8.2); TRIGLYCERIDES LEVEL 216 MG/DL (<150)
[2018-09-16 15:46] LABS: TOTAL 25(OH) VITAMIN D 17.2 NG/ML (30.0-100.0)
[2018-09-16 16:08] LABS: VITAMIN B12 LEVEL 335 PG/ML (247-911)
== END ==
LOC: M SFHCPLAZ 12:42
PROVIDERS: ATTEND Family Medicine
DX: R53.83 Other fatigue (principal); E11.21 Type 2 diabetes mellitus with diabetic nephropathy; E11.42 Type 2 diabetes mellitus with diabetic polyneuropathy; I10 Essential (primary) hypertension; F12.20 Cannabis dependence, uncomplicated; R60.0 Localized edema; E78.5 Hyperlipidemia, unspecified; I20.0 Unstable angina; F17.210 Nicotine dependence, cigarettes, uncomplicated

== ENCOUNTER 2018-11-22 21:55 | Inpatient (IN) | payer MEDICARE ==
[~2018-11-22] VITALS: Ht 180.3 cm; Wt 93.5 kg
[2018-11-22] MEDS ORDERED: ONDANSETRON 4MG/2ML VIAL (J2405) IV ONE (22:15)
[2018-11-22] MEDS ORDERED: NS 1,000 ML IV ONE ×2 (22:15)
[2018-11-22 22:26] LABS: BASO # 0.1 10^3/uL (0.0-0.2); BASO % 0.6 % (0.0-1.0); EOS # 0.1 10^3/uL (0.0-0.50); EOS % 0.6 % (0.0-3.0); HEMATOCRIT 51.2 % (42.0-52.0); LYMPH # 2.4 10^3/uL (1.5-4.5); LYMPH % 21.6 % (24.0-44.0); MEAN CORPUSCULAR HEMOGLOBIN 30.9 pg (27.0-33.0); MEAN CORPUSCULAR HGB CONC 33.2 g/dl (32.0-36.5); MEAN CORPUSCULAR VOLUME 92.9 fl (80.0-96.0); MONO # 0.4 10^3/uL (0.0-0.8); MONO % 3.7 % (0.0-5.0); NEUTROPHILS # 8.1 10^3/uL (1.8-7.7); PLATELET COUNT, AUTOMATED 261 10^3/uL (150-450); RED BLOOD COUNT 5.51 10^6/uL (4.30-6.10); WHITE BLOOD COUNT 11.1 10^3/uL (4.0-10.0)
[2018-11-22] MEDS: HYDROMORPHONE HCL 0.5 MG/ 0.5 ML SYRINGE (J1170 PER 1) IV PRN (22:26)
[2018-11-22 22:28] LABS: VENOUS BASE EXCESS -19.6 (-2.0-2.0); VENOUS O2 SATURATION 74.5 % (60.0-80.0); VENOUS PARTIAL PRESSURE CO2 36.1 mmHg (38.0-50.0); VENOUS PH 7.059 UNITS (7.330-7.430); VENOUS STANDARD HCO3 10.4 MEQ/L; VENOUS TOTAL CO2 11.1 MEQ/L (24.0-28.0)
[2018-11-22 22:51] LABS: INR 0.99; PROTHROMBIN TIME 13.2 SECONDS (12.1-14.4)
[2018-11-22 22:52] LABS: PARTIAL THROMBOPLASTIN TIME 23.1 SECONDS (25.4-37.6)
[2018-11-22 23:02] LABS: HEMOGLOBIN A1c 11.7 %
[2018-11-22] MEDS ORDERED: ISOVUE-370 76% 100ML VIAL (Q9967) As Ordered ONE (23:20)
[2018-11-22] MEDS ORDERED: METO1TAB32 PO (23:37)
[2018-11-22] MEDS ORDERED: LISI-538 PO (23:37)
[2018-11-22] MEDS ORDERED: TRES1INJ SQ (23:37)
[2018-11-22 23:47] LABS: ALBUMIN 3.8 GM/DL (3.2-5.2); ALT/SGPT 29 U/L (12-78); AMYLASE 31 U/L (25-115); BILIRUBIN,DIRECT 0.1 MG/DL (0.0-0.2); BILIRUBIN,TOTAL 0.5 MG/DL (0.2-1.0); BLOOD UREA NITROGEN 38 MG/DL (7-18); CALCIUM LEVEL 9.2 MG/DL (8.8-10.2); CARBON DIOXIDE LEVEL 10 MEQ/L (21-32); CHLORIDE LEVEL 96 MEQ/L (98-107); CPK CREATINE PHOSPHOKINASE 63 U/L (39-308); CREATININE FOR GFR 2.37 MG/DL (0.70-1.30); ETHYL ALCOHOL (ETHANOL) < 0.003 % (0.000-0.010); GLOMERULAR FILTRATION RATE 29.5 (>49); GLUCOSE, FASTING 527 MG/DL (70-100); LIPASE 65 U/L (73-393); MB/CK RELATIVE INDEX 4.44 (< OR =4); POTASSIUM SERUM 4.8 MEQ/L (3.5-5.1); SODIUM LEVEL 136 MEQ/L (136-145); TOTAL PROTEIN 6.8 GM/DL (6.4-8.2); TROPONIN I < 0.02 NG/ML (< 0.10)
[2018-11-22 23:59] LABS: VENOUS HCO3 8.2 MEQ/L (23.0-27.0); VENOUS O2 SATURATION 89.3 % (60.0-80.0); VENOUS PARTIAL PRESSURE CO2 29.4 mmHg (38.0-50.0); VENOUS PARTIAL PRESSURE O2 68.8 mmHg (30.0-50.0); VENOUS PH 7.061 UNITS (7.330-7.430); VENOUS STANDARD HCO3 9.8 MEQ/L; VENOUS TOTAL CO2 9.1 MEQ/L (24.0-28.0)
[2018-11-23] VITALS (8 sets, daily range): BP systolic 118–177; BP diastolic 57–80
[2018-11-23] MEDS ORDERED: INSULIN IV RATE CHANGE DOCUMENTATION ML/HR XX SCH
[2018-11-23] MEDS ORDERED: HumuLIN R (REGULAR) INSULIN (NovoLIN R) **100U/ML** PER UNIT IV ONE
[2018-11-23] MEDS ORDERED: INSULIN HUMAN REGULAR 100 UNITS in NS 99 ML IV SCH ×4
[2018-11-23] MEDS: HYDROMORPHONE HCL 0.5 MG/ 0.5 ML SYRINGE (J1170 PER 1) IV PRN (00:06)
[2018-11-23] MEDS ORDERED: METO1TAB7 PO (00:07)
[2018-11-23] MEDS ORDERED: SPIR-10 PO (00:07)
[2018-11-23] MEDS ORDERED: ATOR80TA59 PO (00:07)
[2018-11-23] MEDS ORDERED: HYDROMORPHONE HCL 0.5 MG/ 0.5 ML SYRINGE (J1170 PER 1) IV ONE (00:15)
[2018-11-23] MEDS ORDERED: PANTOPRAZOLE 40MG INJ (PROTONIX) (C9113) IV ONE (00:15)
[2018-11-23 00:26] LABS: ACETONE/KETONE > 46.00 MG/DL (<2.81)
[2018-11-23] MEDS ORDERED: NS 1,000 ML IV ONE ×2 (00:30)
[2018-11-23] MEDS ORDERED: ONDANSETRON 4MG/2ML VIAL (J2405) IV PRN (00:30)
[2018-11-23] MEDS ORDERED: ACET-897 PO (00:33)
[2018-11-23] MEDS ORDERED: LOSA25TA14 PO (00:33)
[2018-11-23] MEDS ORDERED: VICT18IN SC (00:33)
[2018-11-23] MEDS ORDERED: VITA50005 PO (00:33)
[2018-11-23] MEDS ORDERED: LISI-542 PO (00:33)
[2018-11-23] MEDS ORDERED: TRES1INJ SC ×2 (00:33)
--- NOTE | 2018-11-23 00:39 | REPVR ---
EXAM: CT Abdomen and Pelvis Without Contrast EXAM DATE/TIME: 11/22/2018 10:07 PM CLINICAL HISTORY: 63 years old, male; Abdominal pain; Generalized TECHNIQUE: Imaging protocol: Axial computed tomography images of the abdomen and pelvis without contrast. Coronal and sagittal reformatted images were created and reviewed. Radiation optimization: All CT scans at this facility use at least one of these dose optimization techniques: automated exposure control; mA and/or kV adjustment per patient size (includes targeted exams where dose is matched to clinical indication); or iterative reconstruction. COMPARISON: No relevant prior studies available. FINDINGS: Lungs: No suspicious mass or airspace process in the visualized lung bases. Emphysema and basilar fibrosis noted. ABDOMEN: Liver: Noncontrast liver shows no obvious lesion. Gallbladder and bile ducts: Gallbladder is present and shows no evidence of gallstone. Pancreas: Noncontrast pancreas shows no obvious mass or adjacent fluid. Spleen: Noncontrast spleen shows no obvious focal deformity. Adrenals: Adrenal glands are normal in appearance. Kidneys and ureters: Kidneys show no stone or hydronephrosis. Stomach and bowel: No evidence of small bowel obstruction. No evidence of acute diverticulitis. Appendix: Normal-appearing retrocecal appendix is identified, without inflammation. PELVIS: Bladder: Bladder appears normal. Reproductive: Unremarkable as visualized. ABDOMEN and PELVIS: Intraperitoneal space: No pneumoperitoneum. No abnormal pelvic mass. Bones/joints: Bony structures are normal except for lumbar spine degenerative disc changes. Soft tissues: No effacement of normal fat planes in the ischiorectal fossa. Vasculature: Atherosclerotic change present in the aorta, without aneurysm. Lymph nodes: No enlarged lymph nodes. IMPRESSION: 1. No acute surgical or inflammatory intra-abdominal or pelvic process. 2. No explanation for acute abdominal pain Electronically signed by: Ronaldo Bass On 11/23/2018 00:39:16 AM
[2018-11-23] MEDS ORDERED: ALBUTEROL 90 MCG/ACT 8GM HFA INHALER INH PRN (00:45)
[2018-11-23] MEDS ORDERED: MORPHINE 4 MG/ML 1ML VIAL/SYRINGE (J2270) IV PRN (00:45)
[2018-11-23] MEDS ORDERED: KCL 20MEQ IN 0.45NS 1000ML 1,000 ML IV SCH (01:00)
--- NOTE | 2018-11-23 01:02 | HPEPDOC ---
General Date of Admission November 23, 2018 at 00:10 Primary Care Physician: DANN FISCHER DO Chief Complaint The patient is a 63-year-old male admitted with a reason for visit of Dka (Diabetic Ketoacidosis). Source: Patient, Other (girlfriend) Timing/Duration: Day(s) (3-4) Severity: Moderate, Severe Associated Symptoms: Headaches, Nausea, Vomiting, Shortness of breath History of Present Illness 63 yo male with chronic DM type 2 with non-compliance with most recent A1C at 12 presented to ER due to nausea, vomiting, and abdominal pain that started 4-5 days ago. He is on Tresiba 55 units in the morning and 50 units at night; patient only does insulin sliding scale in the morning if being watched by girlfriend as he does not like to get finger stick, stating it hurts. His girlfriend has been trying to bring him to the ER for the past few days but was unable to. Reported that he is compliant on the diabetes medication except for missing both morning and night time insulin 1 day prior to admission and not h aving Victoza for the past 4-5 days as it made him sick. Patient also reported sore throat that started about 3 days ago. Patient was having increasing thirst with increased urination. He also was unable to hold down any solid or liquid for the past few days. Denies any sick contact or recent travel hx. Home Medications Scheduled Apixaban (Eliquis) 5 Mg Tab, 5 MG PO BID, (Reported) Atorvastatin Calcium (Atorvastatin Calcium) 80 Mg Tablet, 80 MG PO DAILY, (Reported) Ergocalciferol (Vitamin D2) (Vitamin D2) 50,000 Unit Capsule, 50,000 UNIT PO 1XWK, (Reported) TAKES ON SUNDAYS Insulin Degludec (Tresiba Flextouch U-200) 200 Unit/1 Ml Insuln.pen, 55 UNIT SC DAILY, (Reported) Insulin Degludec (Tresiba Flextouch U-200) 200 Unit/1 Ml Insuln.pen, 50 UNIT SC QHS, (Reported) Liraglutide (Victoza 2-Gokul) 0.6 Mg/0.1 Ml Pen.injctr, 0.6 MG SC QPM, (Reported) TAKES AT 1500 Lisinopril (Lisinopril) 5 Mg Tablet, 5 MG PO DAILY, (Reported) Metoprolol Succinate (Metoprolol Succinate) 25 Mg Tab.er.24h, 12.5 MG PO DAILY, (Reported) Nicotine (Nicotine Patch) 21 Mg Patch.td24, 1 PATCH TD DAILY Pregabalin (Lyrica) 100 Mg Cap, 100 MG PO TID, (Reported) Salmeterol/Fluticasone (Advair 100-50 Diskus) 28 Puff/Inhaler Aerp, 1 PUFF INH BID, (Reported) Spironolactone (Spironolactone) 25 Mg Tablet, 12.5 MG PO DAILY, (Reported) Scheduled PRN Albuterol Sulfate (Ventolin Hfa) 108 Mcg/Act Aer, 2 PUFFS INH Q4H PRN for SHORTNESS OF BREATH, (Reported) Allergies Coded Allergies: aspirin (Verified Allergy, Intermediate, swelling, 11/22/18) Past Medical History Medical History 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) CAD s/p [place] Dyslipidemia A fib with RVR Chronic systolic CHF HTN COPD tobacco use d/o anixety, panic d/o with agorphobia Depressive disorder inadequate material resources pain in lower leg joint Hx of DVT and PE hx of polysubstance abuse Constipation Gastritis Asymptomatic varicose veins Hx of DKA Hx of hep C, cured Surgical History B/l cataracts removal 2016 Heart cath more than 10 years ago Family History Significant Family History: Heart disease (MOther had VT) Social History * Smoker: current smoker Alcohol: occationally Drugs: marijuana Recent Travel/Sick Contacts: Denies: Recent sick contacts Pt lives with girlfriend. Moved from [place] in 2018. Used to live in nursing home in [place] A-FIB/CHADSVASC A-FIB History Current/History of A-Fib/PAF?: Yes Current Oral Anticoagulant The: Yes Review of Systems Constitutional: Reports: Fatigue; Denies: Chills, Fever ENT: Reports: Head Aches, Sore Throat Pulmonary: Reports: Dyspnea, Cough; Denies: Pleuritic Chest Pain Cardiovascular: Denies: Chest Pain, Palpitations Gastrointestinal: Reports: Nausea, Vomiting, Abdominal Pain; Denies: Diarrhea Genitourinary: Reports: Frequency Endocrine: Reports: Polyuria, Other Endocrine Sx (reported thirst) Neurological: Reports: Other Symptoms (denies new onset focal neurological deficits); Denies: Weakness, Numbness, Incoordination, Change in speech Physical Examination General Exam: Positive: Alert, Mild Distress, Moderate Distress Eye Exam: Positive: Conjunctiva & lids normal, EOMI; Negative: Sclera icteric ENT Exam: Positive: Tongue Midline, Other ENT (Mildly erythamtous throat. No tonsilar exudates noted); Negative: Mucous membr. moist/pink Neck Exam: Positive: Supple; Negative: JVD Chest Exam: Positive: Clear to auscultation, Other (kussmal breathing pattern); Negative: Normal air movement, Rales, Rhonchi, Wheezing Heart Exam: Positive: Tachycardic, Regular Rhythm, Normal S1, Normal S2; Negative: Murmurs Abdomen Exam: Positive: Normal bowel sounds, Soft, Other (no guarding or distention) Extremity Exam: Positive: Clubbing, Normal pulses (bilateral radial pulses equal), Other (capillary refill about 3 sec) Neuro Exam: Positive: Normal Speech, Cranial Nerves 3-12 NL (CN3,4,5,6,7,8,9, and 12 grossly intact) Psych Exam: Positive: Memory Intact, Other (pt answering questions appropria tely. Memory and cognitive function appears to be at baseline) Vital Signs Vital Signs Date Time Temp Pulse Resp B/P (MAP) Pulse Ox O2 Delivery O2 Flow Rate FiO2 11/23/18 00:35 142/71 (94) 11/23/18 00:30 18 11/23/18 00:10 130 98 Room Air 11/22/18 21:57 96.7 Laboratory Data Labs 24H Laboratory Tests 2 11/22/18 22:07: Lactic Acid Level 5.0*H 11/22/18 22:17: Immature Granulocyte % (Auto) 0.5, White Blood Count 11.1H, Red Blood Count 5.51, Hemoglobin 17.0, Hematocrit 51.2, Mean Corpuscular Volume 92.9, Mean Corpuscular Hemoglobin 30.9, Mean Corpuscular Hemoglobin Concent 33.2, Red Cell Distribution Width 12.8, Platelet Count 261, Neutrophils (%) (Auto) 73.0H, Lymphocytes (%) (Auto) 21.6L, Monocytes (%) (Auto) 3.7, Eosinophils (%) (Auto) 0.6, Basophils (%) (Auto) 0.6, Neutrophils # (Auto) 8.1H, Lymphocytes # (Auto) 2.4, Monocytes # (Auto) 0.4, Eosinophils # (Auto) 0.1, Basophils # (Auto) 0.1, Nucleated Red Blood Cells % (auto) 0.0, Prothrombin Time 13.2, Prothromb Time International Ratio 0.99, Activated Partial Thromboplast Time 23.1L, Blood Gas Bicarbonate Standard 9.8, Venous Blood pH 7.061L, Venous Blood Partial Pressure CO2 29.4L, Venous Blood Partial Pressure O2 68.8H, Venous Blood Total Carbon Dioxide 9.1L, Venous Blood HCO3 8.2L, Venous Blood Oxygen Saturation 89.3H, Venous Blood Base Excess -21.0L, Anion Gap 30H, Glomerular Filtration Rate 29.5L, Estimated Mean Plasma Glucose 289H, Hemoglobin A1c 11.7, Calcium Level 9.2, Aspartate Amino Transf (AST/SGOT) 14, Alanine Aminotransferase (ALT/SGPT) 29, Alkaline Phosphatase 58, Total Bilirubin 0.5, Direct Bilirubin 0.1, Total Creatine Kinase 63, Creatine Kinase MB 3.0, Creatine Kinase MB Relative Index 4.44H, Troponin I < 0.02, Total Protein 6.8, Albumin 3.8, Albumin/Globulin Ratio 1.27, Amylase Level 31, Lipase 65L, Ethyl Alcohol Level < 0.003, B- Hydroxybutyrate > 46.00H 11/23/18 00:10: Bedside Glucose (Misc Panel) 485H CBC/BMP Laboratory Tests 11/22/18 22:17 Red Blood Count 5.51, Mean Corpuscular Volume 92.9, Mean Corpuscular Hemoglobin 30.9, Mean Corpuscular Hemoglobin Concent 33.2, Red Cell Distribution Width 12.8, Neutrophils (%) (Auto) 73.0 H, Lymphocytes (%) (Auto) 21.6 L, Monocytes (%) (Auto) 3.7, Eosinophils (%) (Auto) 0.6, Basophils (%) (Auto) 0.6, Neutrophils # (Auto) 8.1 H, Lymphocytes # (Auto) 2.4, Monocytes # (Auto) 0.4, Eosinophils # (Auto) 0.1, Basophils # (Auto) 0.1 Microbiology Microbiology 11/22/18 Blood Culture, Received Pending 11/22/18 Blood Culture, Received Pending Problems (1) DKA (diabetic ketoacidoses) Status: Acute Problem Text: Chronic poorly controlled DM type 2 on insulin with neuropathy and nephropathy. A1c today 11.7. Increased AG with metabolic acidosis; PH at 7.059 with repeat at 7.061. Fasting glucose upon initial presentation in ER 527. Pos urine and serum ketone. Received 3L NS bolus in ER; another L of NS bolus ordered. Labored breathing with nausea, vomiting, and abdominal pain. On Tresiba 55 units in AM and 50 units QHS. Pt only does one finger stick glucose a day in the morning with sliding scale; recently started Victoza. Reported only missing one morning and one night dose 1 day prior to admission. Denies any chest pain or palpitation. Hold home DM meds. Patient will receiving insulin drip until blood sugar around 200/GAP closes; FSBS Q1H. SC insulin 1-2 hours before d/c insulin drip. IV K20meq in 1/2 NS Vital signs as scheduled and BMP Q4H. Morphine PRN pain and Zofran PRN nausea/vomiting. Unremarkable CT abd/pelvis. (2) Acute kidney injury superimposed on CKD Problem Text: elevated creatinine at 2.37; baseline creatinine around1 to 1.2. Hx of CKD stage 3 from DM type 2. Macroproteinuria which warranted a nephro evaluation. No appt may be set up with [facility] at this time; pending appt with [facility]. MABEL likely d/t diuresis from DKA. Received 3 L IV NS bolus in ER, 1 L IV NS ordered. Pt will be on 250ml 1/2NS with 20meq KCl afterwards. F/u with BMP. Hold home med Lisinopril and other nephrotoxic meds; closely monitor the pt as pt also has hx of chronic systolic CHF (3) Afib Status: Chronic Response to Treatment: Stable Problem Text: With hx of chronic systolic CHF. Currently sinus rhythm. Mildly increasing tachycardia likely reactive to dehydration from diuresis. Cont home med Eliquis. Pt denies any chest pain or palpitations. Vital signs as scheduled and cont to monitor the pt closely (4) COPD (chronic obstructive pulmonary disease) Problem Text: Continue home med Albuterol and Adavir. Vital signs as scheduled. Titrate oxygen saturation from 88 to 92% (5) HTN (hypertension) Status: Chronic Problem Text: Hold home med Lisinopril and Spironolactone. Cont home med Metoprolol. Vital signs as scheduled. Cont to monitor the pt Plan / VTE VTE Prophylaxis Ordered?: Yes Plan IVF: Continue Medications: Change to IV Diagnostics: Repeat Labs in AM GME ATTESTATION GME ATTESTATION My faculty preceptor for this patient encounter was physically present during the encounter and was fully available. All aspects of the patient interview, examination, medical decision making process, and medical care plan development were reviewed and approved by the faculty preceptor. The faculty preceptor is aware and concurs with the plan as stated in the body of this note and will at test to such by his/her cosignature. ATTENDING NOTE I have examined the patient at bedside along with resident physician on day of admission. I have discussed in detail assessment and treatment plan with the resident physician. I will continue to follow up the patient during hospital stay. DANN FISCHER DO November 23, 2018 01:02 CRYSTAL ANDERS MD November 28, 2018 17:13
[2018-11-23] MEDS ORDERED: METO1TAB32 PO (01:05)
[2018-11-23 01:08] LABS: AMPHETAMINES LEVEL URINE NEGATIVE (NEGATIVE); BARBITURATES URINE NEGATIVE (NEGATIVE); BENZODIAZEPINES URINE NEGATIVE (NEGATIVE); CANNABINOIDS URINE NEGATIVE (NEGATIVE); COCAINE METABOLITE URINE NEGATIVE (NEGATIVE); METHADONE URINE NEGATIVE (NEGATIVE); OPIATES URINE NEGATIVE (NEGATIVE); PHENCYCLIDINE URINE NEGATIVE (NEGATIVE)
[2018-11-23] MEDS ORDERED: METOPROLOL SUCC *XL* 12.5MG PER 1/2 TAB (TopROL *XL*) PO STA (02:17)
[2018-11-23] MEDS ORDERED: ACETAMINOPHEN TAB 650MG DOSE (2X325MG) PO PRN (02:30)
[2018-11-23] MEDS: KCL 20MEQ IN 0.45NS 1000ML 1,000 ML IV SCH ×2 (02:50→05:30)
[2018-11-23 03:24] LABS: CALCIUM LEVEL 7.8 MG/DL (8.8-10.2); CREATININE FOR GFR 1.88 MG/DL (0.70-1.30); GLOMERULAR FILTRATION RATE 38.5 (>49); POTASSIUM SERUM 3.8 MEQ/L (3.5-5.1)
[2018-11-23] MEDS: INSULIN IV RATE CHANGE DOCUMENTATION ML/HR XX SCH ×2 (06:00→09:48)
--- NOTE | 2018-11-23 06:03 | ECGEPIP ---
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
[2018-11-23] MEDS ORDERED: GLUCAGON FOR INJ 1 MG VIAL (J1610) SC PRN (06:30)
[2018-11-23] MEDS ORDERED: DEXTROSE 50% 50 ML SYRINGE IV PRN (06:30)
[2018-11-23] MEDS ORDERED: GLUCOSE 4 GM CHEW TABLET PO PRN (06:30)
[2018-11-23] MEDS ORDERED: D5W/0.45% SODIUM CHLORIDE 1,000 ML IV SCH ×2 (06:45→07:00)
[2018-11-23 07:26] LABS: CALCIUM LEVEL 7.5 MG/DL (8.8-10.2); CREATININE FOR GFR 1.73 MG/DL (0.70-1.30); GLOMERULAR FILTRATION RATE 42.4 (>49); POTASSIUM SERUM 3.6 MEQ/L (3.5-5.1)
[2018-11-23] MEDS: HumaLOG INSULIN (NovoLOG) PER UNIT SC SCH ×4 (07:30→16:55)
[2018-11-23] MEDS: ADVAIR HFA 45/21MCG INHALER INH SCH ×2 (08:13→20:00)
[2018-11-23 08:47] LABS: HEMATOCRIT 39.3 % (42.0-52.0); MEAN CORPUSCULAR HEMOGLOBIN 30.7 pg (27.0-33.0); MEAN CORPUSCULAR HGB CONC 34.6 g/dl (32.0-36.5); MEAN CORPUSCULAR VOLUME 88.7 fl (80.0-96.0); PLATELET COUNT, AUTOMATED 208 10^3/uL (150-450); RED BLOOD COUNT 4.43 10^6/uL (4.30-6.10); WHITE BLOOD COUNT 12.7 10^3/uL (4.0-10.0)
[2018-11-23] MEDS: APIXABAN 5 MG TAB (ELIQUIS) PO SCH ×2 (08:47→20:21)
[2018-11-23] MEDS: NICOTINE 21MG/24HR 1 EA TRANSDERMAL TD SCH (08:47)
[2018-11-23] MEDS: ATORVASTATIN 20 MG TAB PO SCH (08:47)
[2018-11-23] MEDS: PREGABALIN 100 MG CAP (LYRICA) PO SCH ×3 (08:47→20:20)
[2018-11-23 09:00] LABS: HEMOGLOBIN 13.6 g/dl (13.5-17.5)
[2018-11-23 09:12] LABS: CALCIUM LEVEL 7.5 MG/DL (8.8-10.2); CREATININE FOR GFR 1.73 MG/DL (0.70-1.30); GLOMERULAR FILTRATION RATE 42.4 (>49); POTASSIUM SERUM 3.7 MEQ/L (3.5-5.1)
--- NOTE | 2018-11-23 09:25 | REP ---
CHEST, SINGLE VIEW: Single view of the chest is performed. COMPARISON: 06/29/2018 There are bilateral fibrotic changes which appear stable. No definite acute infiltrate is seen. The heart is normal in size. There is calcification of the thoracic aorta. The mediastinal silhouette is unchanged. IMPRESSION: Stable findings without acute infiltrate. Electronically Signed by Antonio Obregon MD 11/25/2018 11:40 A
[2018-11-23] MEDS ORDERED: LEVEMIR (INSULIN DETEMIR) 1 UNITS/0.01ML SC ONE ×2 (10:00→20:30)
[2018-11-23] MEDS: METOPROLOL SUCC *XL* 12.5MG PER 1/2 TAB (TopROL *XL*) PO SCH (12:49)
[2018-11-23 16:44] LABS: CALCIUM LEVEL 7.9 MG/DL (8.8-10.2); CREATININE FOR GFR 1.96 MG/DL (0.70-1.30); GLOMERULAR FILTRATION RATE 36.7 (>49); POTASSIUM SERUM 3.9 MEQ/L (3.5-5.1)
[2018-11-23] MEDS ORDERED: HumaLOG INSULIN (NovoLOG) PER UNIT SC STA (20:01)
[2018-11-23] MEDS: LR 1,000 ML IV SCH (20:21)
[2018-11-23] MEDS ORDERED: HumaLOG INSULIN (NovoLOG) PER UNIT SC SCH (21:00)
[2018-11-24] VITALS: BP 132/68
[2018-11-24] MEDS: HumaLOG INSULIN (NovoLOG) PER UNIT SC SCH ×5 (00:22→17:21)
[2018-11-24 04:00] VITALS: BP 131/77
--- NOTE | 2018-11-24 04:31 | IPNPDOC ---
Text Note Date of Service 11/23/18. NOTE S/P DKA. Pt had a blood sugar reading of more than 400 last night. Sliding scale coverage was given, and Levemir 10 units BID started. AM BMP; continue to monitor BG. A-FIB/CHADSVASC A-FIB History Current/History of A-Fib/PAF?: No VS,Fishbone, I+O VS, Fishbone, I+O Laboratory Tests 11/23/18 06:44 Calcium Level 7.5 L 11/23/18 08:22 Calcium Level 7.5 L, Red Blood Count 4.43, Mean Corpuscular Volume 88.7, Mean Corpuscular Hemoglobin 30.7, Mean Corpuscular Hemoglobin Concent 34.6, Red Cell Distribution Width 12.7 11/23/18 16:07 Calcium Level 7.9 L Vital Signs Date Time Temp Pulse Resp B/P (MAP) Pulse Ox O2 Delivery O2 Flow Rate FiO2 11/24/18 00:00 97.6 91 20 132/68 (89) 99 11/23/18 01:05 Room Air I&O- Last 24 Hours up to 6 AM 11/24/18 06:00 Intake Total 1760 ml Output Total 2125 ml Balance -365 ml ETIENNE ALAN MD November 24, 2018 04:31
[2018-11-24 05:38] LABS: HEMATOCRIT 38.4 % (42.0-52.0); MEAN CORPUSCULAR HGB CONC 33.9 g/dl (32.0-36.5); MEAN CORPUSCULAR VOLUME 91.4 fl (80.0-96.0); PLATELET COUNT, AUTOMATED 154 10^3/uL (150-450); WHITE BLOOD COUNT 7.8 10^3/uL (4.0-10.0)
[2018-11-24 06:04] LABS: CALCIUM LEVEL 8.1 MG/DL (8.8-10.2); CREATININE FOR GFR 1.58 MG/DL (0.70-1.30); GLOMERULAR FILTRATION RATE 47.1 (>49); POTASSIUM SERUM 3.4 MEQ/L (3.5-5.1)
[2018-11-24] MEDS: LR 1,000 ML IV SCH (06:28)
[2018-11-24] MEDS ORDERED: POTASSIUM CHLORIDE 10 MEQ SR TABLET PO ONE (07:15)
[2018-11-24 07:30] LABS: MAGNESIUM LEVEL 1.7 MG/DL (1.8-2.4)
[2018-11-24] MEDS: ADVAIR HFA 45/21MCG INHALER INH SCH ×2 (07:57→20:53)
[2018-11-24 08:00] VITALS: BP 129/65
[2018-11-24] MEDS: NICOTINE 21MG/24HR 1 EA TRANSDERMAL TD SCH (08:50)
[2018-11-24] MEDS: ATORVASTATIN 20 MG TAB PO SCH (08:50)
[2018-11-24] MEDS: LEVEMIR (INSULIN DETEMIR) 1 UNITS/0.01ML SC SCH ×2 (08:51→21:11)
[2018-11-24] MEDS: APIXABAN 5 MG TAB (ELIQUIS) PO SCH ×2 (08:54→21:10)
[2018-11-24] MEDS: METOPROLOL SUCC *XL* 12.5MG PER 1/2 TAB (TopROL *XL*) PO SCH (08:54)
[2018-11-24] MEDS: PREGABALIN 100 MG CAP (LYRICA) PO SCH ×3 (08:55→21:10)
[2018-11-24] MEDS ORDERED: LEVEMIR (INSULIN DETEMIR) 1 UNITS/0.01ML SC SCH (09:00)
[2018-11-24] MEDS ORDERED: MAG SULF 1GM/100ML (MAG RUN) 1 GM in APPROPRIATE DILUENT 1 EA IV ONE (09:00)
[2018-11-24 10:20] VITALS: BP 139/69
[2018-11-24 14:00] VITALS: BP 136/65
[2018-11-24] MEDS ORDERED: HumaLOG INSULIN (NovoLOG) PER UNIT SC SCH (21:00)
[2018-11-24 22:00] VITALS: BP 176/65
[2018-11-25 06:00] VITALS: BP 158/70
[2018-11-25 06:33] LABS: HEMATOCRIT 37.7 % (42.0-52.0); HEMOGLOBIN 13.1 g/dl (13.5-17.5); MEAN CORPUSCULAR HEMOGLOBIN 30.2 pg (27.0-33.0); MEAN CORPUSCULAR HGB CONC 34.7 g/dl (32.0-36.5); MEAN CORPUSCULAR VOLUME 86.9 fl (80.0-96.0); PLATELET COUNT, AUTOMATED 158 10^3/uL (150-450); RED BLOOD COUNT 4.34 10^6/uL (4.30-6.10); WHITE BLOOD COUNT 7.1 10^3/uL (4.0-10.0)
[2018-11-25 06:57] LABS: BLOOD UREA NITROGEN 14 MG/DL (7-18); CALCIUM LEVEL 8.5 MG/DL (8.8-10.2); CARBON DIOXIDE LEVEL 31 MEQ/L (21-32); CHLORIDE LEVEL 108 MEQ/L (98-107); CREATININE FOR GFR 1.07 MG/DL (0.70-1.30); GLOMERULAR FILTRATION RATE > 60.0 (>49); GLUCOSE, FASTING 130 MG/DL (70-100); POTASSIUM SERUM 3.5 MEQ/L (3.5-5.1); SODIUM LEVEL 142 MEQ/L (136-145)
[2018-11-25] MEDS: ADVAIR HFA 45/21MCG INHALER INH SCH (08:03)
[2018-11-25] MEDS: APIXABAN 5 MG TAB (ELIQUIS) PO SCH (08:31)
[2018-11-25] MEDS: ATORVASTATIN 20 MG TAB PO SCH (08:31)
[2018-11-25] MEDS: PREGABALIN 100 MG CAP (LYRICA) PO SCH (08:31)
[2018-11-25] MEDS: LEVEMIR (INSULIN DETEMIR) 1 UNITS/0.01ML SC SCH (08:32)
[2018-11-25] MEDS: NICOTINE 21MG/24HR 1 EA TRANSDERMAL TD SCH (08:33)
[2018-11-25] MEDS: HumaLOG INSULIN (NovoLOG) PER UNIT SC SCH (08:33)
[2018-11-25] MEDS ORDERED: NICO21PAT TD (10:24)
[2018-11-25 11:06] VITALS: BP 150/72
[2018-11-25] MEDS: METOPROLOL SUCC *XL* 12.5MG PER 1/2 TAB (TopROL *XL*) PO SCH (11:06)
--- NOTE | 2018-11-25 13:58 | DS.PDOC ---
Discharge Summary General Date of Admission November 23, 2018 at 00:10 Date of Discharge 11/25/18 Discharge Summary PROCEDURES PERFORMED DURING STAY: [None]. ADMITTING DIAGNOSES: 1. DKA DISCHARGE DIAGNOSES: 1. 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 HISTORY OF PRESENT ILLNESS: 63 yo male with chronic DM type 2 with non- compliance with most recent A1C at 12 presented to ER due to nausea, vomiting, and abdominal pain that started 4-5 days ago. He is on Tresiba 55 units in the morning and 50 units at night; patient only does insulin sliding scale in the morning if being watched by girlfriend as he does not like to get finger stick, stating it hurts. His girlfriend has been trying to bring him to the ER for the past few days but was unable to. Reported that he is compliant on the diabetes medication except for missing both morning and night time insulin 1 day prior to admission and not having Victoza for the past 4-5 days as it made him sick. Patient also reported sore throat that started about 3 days ago. Patient was having increasing thirst with increased urination. He also was unable to hold down any solid or liquid for the past few days. Denies any sick contact or recent travel hx. HOSPITAL COURSE: Patient admitted to ICU. DKA resolved with insulin gtt. Creatinine was slightly increased, improved with gently IV fluids. Hospital stay otherwise unremarkable. Importance of adhering to dietary restrictions and medication was reinforced at bedside. DISCHARGE MEDICATIONS: Please see below. ALLERGIES: Please see below. PHYSICAL EXAMINATION ON DISCHARGE: VITAL SIGNS: Please see below. GENERAL: NAD, lying comfortably in bed, disheveled HEENT: NC/AT Lungs: CTA B/L Heart: +S1S2 Abd: soft,NT, +BS Ext: no edema LABORATORY DATA: Please see below. ACTIVITY: [As tolerated]. DIET: carb consistent, heart healthy DISPOSITION: 01 Home, Self-Care. DISCHARGE INSTRUCTIONS: 1. Stop smoking 2. Follow up PCP in 3-5 days DISCHARGE CONDITION: [Stable]. TIME SPENT ON DISCHARGE: Greater than 30 minutes. Vital Signs/I&Os Vital Signs Date Time Temp Pulse Resp B/P (MAP) Pulse Ox O2 Delivery O2 Flow Rate FiO2 11/25/18 11:06 82 150/72 11/25/18 06:00 96.9 18 95 11/23/18 01:05 Room Air I&O- Last 24 Hours up to 6 AM 11/25/18 06:00 Intake Total 3790 ml Output Total 500 ml Balance 3290 ml Laboratory Data Labs 24H Laboratory Tests 2 11/24/18 16:50: Bedside Glucose (Misc Panel) 356H 11/24/18 20:53: Bedside Glucose (Misc Panel) 313H 11/25/18 06:12: Nucleated Red Blood Cells % (auto) 0.0, Anion Gap 3L, Glomerular Filtration Rate > 60.0, Blood Urea Nitrogen 14, Creatinine 1.07, Sodium Level 142, Potassium Level 3.5, Chloride Level 108H, Carbon Dioxide Level 31, Calcium Level 8.5L CBC/BMP Laboratory Tests 11/25/18 06:12 Red Blood Count 4.34, Mean Corpuscular Volume 86.9, Mean Corpuscular Hemoglobin 30.2, Mean Corpuscular Hemoglobin Concent 34.7, Red Cell Distribution Width 12.6, Calcium Level 8.5 L FSBS Laboratory Tests Test 11/24/18 16:50 11/24/18 20:53 Range/Units Bedside Glucose (Misc Panel) 356 313 80-115 MG/DL Microbiology Microbiology 11/22/18 Blood Culture - Preliminary, Resulted No Growth after 48 hours. All Specime... 11/22/18 Blood Culture - Preliminary, Resulted No Growth after 48 hours. All Specime... Discharge Medications Scheduled Apixaban (Eliquis) 5 Mg Tab, 5 MG PO BID, (Reported) Atorvastatin Calcium (Atorvastatin Calcium) 80 Mg Tablet, 80 MG PO DAILY, (Reported) Ergocalciferol (Vitamin D2) (Vitamin D2) 50,000 Unit Capsule, 50,000 UNIT PO 1XWK, (Reported) TAKES ON SUNDAYS Insulin Degludec (Tresiba Flextouch U-200) 200 Unit/1 Ml Insuln.pen, 55 UNIT SC DAILY, (Reported) Insulin Degludec (Tresiba Flextouch U-200) 200 Unit/1 Ml Insuln.pen, 50 UNIT SC QHS, (Reported) Liraglutide (Victoza 2-Gokul) 0.6 Mg/0.1 Ml Pen.injctr, 0.6 MG SC QPM, (Reported) TAKES AT 1500 Lisinopril (Lisinopril) 5 Mg Tablet, 5 MG PO DAILY, (Reported) Metoprolol Succinate (Metoprolol Succinate) 25 Mg Tab.er.24h, 12.5 MG PO DAILY, (Reported) Nicotine (Nicotine Patch) 21 Mg Patch.td24, 1 PATCH TD DAILY Pregabalin (Lyrica) 100 Mg Cap, 100 MG PO TID, (Reported) Salmeterol/Fluticasone (Advair 100-50 Diskus) 28 Puff/Inhaler Aerp, 1 PUFF INH BID, (Reported) Spironolactone (Spironolactone) 25 Mg Tablet, 12.5 MG PO DAILY, (Reported) Scheduled PRN Albuterol Sulfate (Ventolin Hfa) 108 Mcg/Act Aer, 2 PUFFS INH Q4H PRN for SHORTNESS OF BREATH, (Reported) Allergies Coded Allergies: aspirin (Verified Allergy, Intermediate, swelling, 11/22/18) SUNDEEP SANTOS MD November 25, 2018 13:58
== END 2018-11-25 11:17 | disposition home or self-care (01) | DRG 638 ==
LOC: M ED 21:55 → EDBD 21:55 → M ED INP 11-23 00:10 → M ICU 11-23 01:08 → M MSPAV 11-24 10:17
PROVIDERS: ADMIT Internal Medicine; ATTEND Internal Medicine
DX: E11.10 Type 2 diabetes mellitus with ketoacidosis without coma (principal); I50.22 Chronic systolic (congestive) heart failure; I13.0 Hypertensive heart and chronic kidney disease with heart failure and stage 1 through stage 4 chronic kidney disease, or unspecified chronic kidney disease; N17.9 Acute kidney failure, unspecified; Z91.14 Patient's other noncompliance with medication regimen; E11.22 Type 2 diabetes mellitus with diabetic chronic kidney disease; E11.21 Type 2 diabetes mellitus with diabetic nephropathy; N18.3 Chronic kidney disease, stage 3 (moderate); I25.10 Atherosclerotic heart disease of native coronary artery without angina pectoris; I25.2 Old myocardial infarction; K29.70 Gastritis, unspecified, without bleeding; I83.90 Asymptomatic varicose veins of unspecified lower extremity; F17.200 Nicotine dependence, unspecified, uncomplicated; E78.5 Hyperlipidemia, unspecified; I48.91 Unspecified atrial fibrillation; J44.9 Chronic obstructive pulmonary disease, unspecified; F40.01 Agoraphobia with panic disorder; F32.9 Major depressive disorder, single episode, unspecified; Z86.711 Personal history of pulmonary embolism; Z86.718 Personal history of other venous thrombosis and embolism; K59.00 Constipation, unspecified; Z98.41 Cataract extraction status, right eye; Z98.42 Cataract extraction status, left eye; Z88.6 Allergy status to analgesic agent; Z79.4 Long term (current) use of insulin; Z79.01 Long term (current) use of anticoagulants; Z79.899 Other long term (current) drug therapy

== ENCOUNTER → 2018-12-07 | Outpatient (REF) | payer MEDICARE ==
[~2018-12-07] MED LIST changes: +ACET-897 PO; +ATOR80TA59 PO; +LISI-538 PO; +LISI-542 PO; +LOSA25TA14 PO; +METO1TAB32 PO; +METO1TAB7 PO; +NICO21PAT TD; +SPIR-10 PO; +TRES1INJ SC; +TRES1INJ SQ; +VICT18IN SC; +VITA50005 PO
== END ==
LOC: M SFHCPLAZ 18:35
PROVIDERS: ATTEND Family Medicine
DX: E11.40 Type 2 diabetes mellitus with diabetic neuropathy, unspecified (principal); Z53.8 Procedure and treatment not carried out for other reasons

== ENCOUNTER 2018-12-21 15:04 | Emergency (ER) | payer MEDICARE ==
[~2018-12-21] VITALS: Ht 180.3 cm; Wt 93.2 kg
[2018-12-21 17:14] LABS: HEMATOCRIT 44.4 % (42.0-52.0); HEMOGLOBIN 15.8 g/dl (13.5-17.5); MEAN CORPUSCULAR HEMOGLOBIN 31.2 pg (27.0-33.0); MEAN CORPUSCULAR HGB CONC 35.6 g/dl (32.0-36.5); MEAN CORPUSCULAR VOLUME 87.6 fl (80.0-96.0); PLATELET COUNT, AUTOMATED 222 10^3/uL (150-450); RED BLOOD COUNT 5.07 10^6/uL (4.30-6.10)
[2018-12-21 17:15] LABS: VENOUS BASE EXCESS -1.6 (-2.0-2.0); VENOUS HCO3 24.8 MEQ/L (23.0-27.0); VENOUS O2 SATURATION 63.8 % (60.0-80.0); VENOUS PARTIAL PRESSURE CO2 47.8 mmHg (38.0-50.0); VENOUS PARTIAL PRESSURE O2 33.2 mmHg (30.0-50.0); VENOUS PH 7.333 UNITS (7.330-7.430); VENOUS STANDARD HCO3 22.2 MEQ/L; VENOUS TOTAL CO2 26.3 MEQ/L (24.0-28.0)
[2018-12-21 17:38] LABS: CALCIUM LEVEL 9.3 MG/DL (8.8-10.2); CREATININE FOR GFR 1.29 MG/DL (0.70-1.30); GLOMERULAR FILTRATION RATE 59.5 (>49); POTASSIUM SERUM 4.8 MEQ/L (3.5-5.1)
[2018-12-21] MEDS ORDERED: LEVEMIR (INSULIN DETEMIR) 1 UNITS/0.01ML SC ONE (17:45)
[2018-12-21 19:18] VITALS: BP 134/66
== END 2018-12-21 19:20 | disposition home or self-care (01) ==
LOC: M ED 15:04
DX: E11.65 Type 2 diabetes mellitus with hyperglycemia (principal); Z91.19 Patient's noncompliance with other medical treatment and regimen; Z59.8 Other problems related to housing and economic circumstances; I48.91 Unspecified atrial fibrillation; I11.0 Hypertensive heart disease with heart failure; I50.9 Heart failure, unspecified; J44.9 Chronic obstructive pulmonary disease, unspecified; F17.210 Nicotine dependence, cigarettes, uncomplicated; Z88.6 Allergy status to analgesic agent; Z79.4 Long term (current) use of insulin; Z79.899 Other long term (current) drug therapy

== ENCOUNTER → 2019-01-12 | Outpatient (REF) | payer MEDICARE | LOC: M LABDRAW1 15:38 | PROVIDERS: ATTEND Internal Medicine Endocrinology, Diabetes & Metabolism | DX: E10.65 Type 1 diabetes mellitus with hyperglycemia (principal) ==

== ENCOUNTER → 2019-01-19 | Outpatient (REF) | payer MEDICARE | LOC: M SFHCPLAZ 21:27 | PROVIDERS: ATTEND Student in an Organized Health Care Education/Training Program | DX: Z53.9 Procedure and treatment not carried out, unspecified reason (principal); E55.9 Vitamin D deficiency, unspecified ==

== ENCOUNTER → 2019-01-31 | Outpatient (REF) | payer MEDICARE ==
[2019-01-31 19:41] LABS: FREE T4 0.76 NG/DL (0.76-1.46); VITAMIN B12 LEVEL 270 PG/ML (247-911)
== END ==
LOC: M SFHCPLAZ 15:49
PROVIDERS: ATTEND Family Medicine
DX: R41.3 Other amnesia (principal); E55.9 Vitamin D deficiency, unspecified

== ENCOUNTER → 2019-02-01 | Outpatient (REF) | payer MEDICARE | LOC: M SFHCPLAZ 10:53 | PROVIDERS: ATTEND Family Medicine | DX: R41.3 Other amnesia (principal); E55.9 Vitamin D deficiency, unspecified; Z53.9 Procedure and treatment not carried out, unspecified reason ==

== ENCOUNTER → 2019-03-05 | Outpatient (REF) | payer MEDICARE | LOC: M SFHCPLAZ 09:35 | PROVIDERS: ATTEND Family Medicine | DX: E11.21 Type 2 diabetes mellitus with diabetic nephropathy (principal); R35.1 Nocturia ==

== ENCOUNTER → 2019-03-15 | Outpatient (CLI) | payer MEDICARE ==
[2019-03-15 16:43] LABS: HEMOGLOBIN A1c 9.3 %
== END ==
LOC: M LAB 15:01
PROVIDERS: ATTEND Student in an Organized Health Care Education/Training Program
DX: E11.21 Type 2 diabetes mellitus with diabetic nephropathy (principal)

== ENCOUNTER → 2019-05-31 | Outpatient (CLI) | payer MEDICARE ==
--- NOTE | 2019-05-31 14:27 | REP ---
Pelvis left hip: Three views. History: Left-sided piriformis syndrome. Findings: AP view of the pelvis and AP and frog-leg views of the left hip demonstrate prominent vascular calcification. The bony pelvic ring is intact. There is mild superior acetabular spurring bilaterally. Femoral head is smooth and rounded and hip joint spaces preserved. Periarticular soft tissues are unremarkable except for the vascular calcification. Impression: Mild acetabular spurring. Prominent vascular calcification. Otherwise negative. Electronically Signed by Maykel Momin MD 05/31/2019 02:18 P
--- NOTE | 2019-05-31 19:36 | REP ---
Lumbar spine series: Seven views. History: Piriformis syndrome. Findings: Lumbar vertebral body heights are preserved. Alignment is normal. There is degenerative discogenic spurring at each lumbar level, least pronounced at L4-5. This is most pronounced at L2-3 and L3-4. Disc space narrowing is seen at L2-3 and L3-4. Flexion/extension lateral views show no subluxation or instability. Facets are unremarkable. Vascular calcification is noted in a normal caliber aorta. Sacrum and SI joints appear intact. Impression: Vascular calcification. Degenerative disc disease most pronounced at L2-3 and L3-4. Electronically Signed by Maykel Momin MD 05/31/2019 08:05 P
== END ==
LOC: M RAD 12:58
PROVIDERS: ATTEND Student in an Organized Health Care Education/Training Program
DX: G57.02 Lesion of sciatic nerve, left lower limb (principal)

== ENCOUNTER → 2019-06-07 | Outpatient (CLI) | payer MEDICARE ==
--- NOTE | 2019-06-08 09:16 | REP ---
MRI lumbar spine: 06/07/2019. Indication: Lumbar radiculopathy. Comparison: None. Technique: Multiplanar short and long TR sequences of the lumbar spine were performed without IV Gadolinium. Findings: Very minimal retrolisthesis of L4 on L5 is noted. No worrisome marrow signal is present. Disc desiccation is present throughout. The visualized cord is normal. Small fatty filum terminalis is noted. No significant paraspinal soft tissue abnormalities are present. L1/L2 and L2/L3: Diffuse disc and spur complexes most apparent anteriorly and facet arthropathy are present without significant spinal canal or neural foraminal narrowing. L3/L4: Diffuse disc and spur complex, most apparent anteriorly is present with bilateral facet arthrosis. There is mild bilateral recess narrowing. The neural foramen are patent. L4/L5: There is a tiny posterior central disc protrusion superimposed on a diffuse disc bulge without significant spinal canal narrowing. Mild to moderate bilateral neural foraminal narrowing is present. L5/S1: Diffuse disc bulge and small superimposed posterior central/left paracentral disc protrusion are present without significant spinal canal or neural foraminal narrowing. Impression: Multilevel degenerative sequelae as described without significant nerve root impingement detected. Electronically Signed by Branden Clarke DO 06/08/2019 09:08 A
== END ==
LOC: M RAD 16:59
PROVIDERS: ATTEND Student in an Organized Health Care Education/Training Program
DX: M54.5 Low back pain (principal)

== ENCOUNTER → 2019-09-20 | Outpatient (CLI) | payer MEDICARE ==
--- NOTE | 2019-09-20 16:41 | REP ---
Low-dose lung screening CT of the chest: Comparison is 05/11/2018. The study is performed without IV contrast. The images are presented at lung windowing only. There are no lung masses or nodules. There are no infiltrates or pleural effusions. There are numerous bulla throughout the lung jackson bilaterally accompanied by interstitial fibrotic changes. This is unchanged from the prior study. Impression: Category one low-dose lung screening CT of the chest. The probability of malignancy is less than 1%.. Advanced emphysematous changes are again noted accompanied by fibrosis, unchanged. Depending on risk factors consider annual follow-up low-dose lung screening CT of the chest. Electronically Signed by Antonio Cline MD 09/20/2019 04:33 P
== END ==
LOC: M RAD 13:28
PROVIDERS: ATTEND Student in an Organized Health Care Education/Training Program
DX: Z87.891 Personal history of nicotine dependence (principal)

== ENCOUNTER 2020-05-21 13:01 | Inpatient (IN) | payer MEDICARE ==
[~2020-05-21] VITALS: Ht 172.7 cm; Wt 101.8 kg
[2020-05-21 13:40] LABS: VENOUS HCO3 24.2 MEQ/L (23.0-27.0); VENOUS O2 SATURATION 56.2 % (60.0-80.0); VENOUS PARTIAL PRESSURE CO2 56.2 mmHg (38.0-50.0); VENOUS PARTIAL PRESSURE O2 31.7 mmHg (30.0-50.0); VENOUS PH 7.252 UNITS (7.330-7.430); VENOUS STANDARD HCO3 20.2 MEQ/L; VENOUS TOTAL CO2 25.9 MEQ/L (24.0-28.0)
[2020-05-21] MEDS ORDERED: NS 1,000 ML IV ONE (14:00)
[2020-05-21] MEDS ORDERED: INSULIN REGULAR IN 0.9 % NACL 100 UNIT in IV 1 EA IV SCH ×4 (14:03→16:33)
[2020-05-21] MEDS ORDERED: INSULIN IV RATE CHANGE DOCUMENTATION ML/HR XX SCH (14:15)
[2020-05-21] MEDS ORDERED: LOSA50TA88 PO (14:29)
[2020-05-21] MEDS ORDERED: ACET-683 PO (14:29)
[2020-05-21] MEDS ORDERED: INSURSDRX SC (14:29)
[2020-05-21] MEDS ORDERED: LANTINJ4 SC (14:29)
--- NOTE | 2020-05-21 14:29 | ECGEPIP ---
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
[2020-05-21 14:53] LABS: BASO # 0.1 10^3/uL (0.0-0.2); BASO % 0.6 % (0.0-1.0); EOS # 0.6 10^3/uL (0.0-0.5); EOS % 6.3 % (0.0-3.0); HEMATOCRIT 45.2 % (42.0-52.0); HEMOGLOBIN 14.9 g/dl (13.5-17.5); LYMPH # 1.9 10^3/uL (1.5-5.0); LYMPH % 19.9 % (24.0-44.0); MEAN CORPUSCULAR HEMOGLOBIN 30.3 pg (27.0-33.0); MEAN CORPUSCULAR VOLUME 92.1 fl (80.0-96.0); MONO # 0.5 10^3/uL (0.0-0.8); MONO % 5.6 % (0.0-5.0); NEUTROPHILS # 6.5 10^3/uL (1.5-8.5); NEUTROPHILS % 67.4 % (36.0-66.0); PLATELET COUNT, AUTOMATED 312 10^3/uL (150-450); RED BLOOD COUNT 4.91 10^6/uL (4.30-6.10); WHITE BLOOD COUNT 9.6 10^3/uL (4.0-10.0)
[2020-05-21 15:05] LABS: ACETONE/KETONE > 46.00 MG/DL (<2.81); ALT/SGPT 18 U/L (12-78); BILIRUBIN,DIRECT < 0.1 MG/DL (0.0-0.2); BILIRUBIN,TOTAL 0.5 MG/DL (0.2-1.0); MAGNESIUM LEVEL 2.1 MG/DL (1.8-2.4); TOTAL PROTEIN 6.7 GM/DL (6.4-8.2)
[2020-05-21 15:15] LABS: HEMOGLOBIN A1c 8.8 %
[2020-05-21] MEDS ORDERED: ACETAMINOPHEN TAB 650MG DOSE (2X325MG) PO PRN (16:30)
[2020-05-21] MEDS ORDERED: MAALOX 30 ML SUSP *UDC PO PRN (16:30)
[2020-05-21] MEDS ORDERED: NICOTINE 21MG/24HR 1 EA TRANSDERMAL TD ONE (16:30)
[2020-05-21] MEDS ORDERED: MOM 30ML SUSPENSION UDC PO PRN (16:30)
[2020-05-21] MEDS ORDERED: GLUCOSE 4GM CHEW TABLET PO PRN (16:45)
[2020-05-21] MEDS ORDERED: NS 1,000 ML IV SCH (16:45)
[2020-05-21] MEDS ORDERED: GLUCAGON INJ 1MG VIAL SC PRN (16:45)
[2020-05-21] MEDS ORDERED: DEXTROSE 50% 50 ML SYRINGE IV PRN (16:45)
--- NOTE | 2020-05-21 17:08 | HPEPDOC ---
[facility] Medical History & Physical Date of Admission May 21, 2020 Date of Service: May 21, 2020 Attending Physician: ADOLFO CORDOVA MD History and Physical CHIEF COMPLAINT: DKA HISTORY OF PRESENT ILLNESS: 65 yo M with a hx of IDDM, HTN, CAD s/p OR, afib with RVR, COPD, DVT/PE (on eliquis) smoking, presented to [facility] ED with thirst, polyuria and blurred vision. He reports not eating breakfast, and did not take insulin this morning. His partner manages his medications and he has a poor understanding of his diabetes. He also reports having a difficult time paying for insulin. Home regimen 84 units lantus qdaily and humulin 10 units TID. He denies chest pain, shortness of breath, fevers, chills, palpitations, or n/v/d. On arrival to ED, vitals BP 131/94. T 96.8. HR 112. RR 20. SpO2 97%. BG 540. b- hydroxybutarate > 46. pH on VBG 7.2. AG 17. Sodium 131 (hollis 141), Cl 92. K 5.3. EKG sinus arrhythmia. Started on insulin drip in ED. Given 1L NS bolus. Being admitted to ICU for management of DKA. 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 REVIEW OF SYSTEMS: CONSTITUTIONAL: patient denies fevers, chills HEENT: patient denies blurred vision, loss of vision, headache,. CARDIOVASCULAR: patient denies chest pain, palpitations. RESPIRATORY: patient denies shortness of breath, cough, hemoptysis. GASTROINTESTINAL: patient denies abdominal pain, n/v/d, blood in stool. GENITOURINARY: patient denies dysuria, discharge. SKIN: Complains of dry, cracked skin bilaterally above ankles MUSCULOSKELETAL: patient denies joint pain, neck pain. NEUROLOGICAL: patient denies focal weakness, numbness, seizures. PSYCHIATRIC: patient denies SI/HI. ENDOCRINE: patient denies polyuria, heat intolerance, cold intolerance. HEMATOLOGIC/LYMPHATIC: patient denies easy bruising. HOME MEDICATIONS: Please see below. PHYSICAL EXAMINATION: VITAL SIGNS: please see below General: NAD, comfortable HEENT: PERRLA, EOMI, sclerae clear Neck: supple, normal ROM, no JVD Respiratory: lungs CTAB, no wheeze, no rales, no crackles CVS: RRR, normal S1, S2, no murmurs Abdo: soft, no masses, no hepatosplenomegaly, BS+, no rebound tenderness Extremities: no edema, pulses 2+, ingrown toenail right fifth digit, dry, cracked skin on bilateral lower extremities above the ankles, chronic venous stasis changes. No ulcerations. No signs of cellulitis. MSK: no joint deformities, normal ROM Neuro: no focal neuro deficits, moving all 4 extremities, CN2-12 intact. Strength 5/5 in all 4 extremities. No nystagmus. Psych: calm, cooperative, AAO x 3 LABORATORY DATA: See below. MICROBIOLOGY: Please see below. ASSESSMENT: 65 yo M with a hx of IDDM, HTN, CAD s/p OR, afib with RVR, COPD, DVT/PE (on eliquis) smoking, admitted to ICU for DKA management. Insulin drip and fluid resuscitation, plan to transition to SC insulin once metabolic criteria met. . PLAN: #DKA: admit to ICU. VBG 7.2. IVF NS 175 cc/hr. Insulin drip. When BG < 250, add D5. FSBS q1h. BMP q4h. Monitor K and AG. Hypoglycemic precautions. Start SC insulin when AG closed, BG<250, pH>7.3. SC insulin 2 hours before DC insulin SRIP. Zofran prn. Check a1c, lipid panel. consulting services associate to assist with medications. Dietary eval. Diabetic education. Podiatry, ophthalmology outpatient. #Chronic atrial fibrillation: AC Eliquis. Metoprolol. #CAD: allergic to ASA. Not on statin. Start lipitor 40 mg PO qhs. #HTN: continue home meds Losartan 50 mg daily #CKD3: Cr 1.5. Repeat BMP. Avoid nephrotoxins. #Hx DVT: eliquis, patient ran out 2 weeks ago, resume. secondary social studies teacher to assist with payment #COPD: duonebs prn. Advair. #Neuropathy: pregabalin #Smoker: smoking cessation teaching done. Nicotine patch. #GI ppx: protonix IV daily. DVT ppx: eliquis Code status: Full Code, per patient. Vital Signs Vital Signs Date Time Temp Pulse Resp B/P (MAP) Pulse Ox O2 Delivery O2 Flow Rate FiO2 05/21/20 15:36 176/85 (115) 05/21/20 15:31 97 20 95 Room Air 05/21/20 13:02 96.8 Laboratory Data Labs 24H Laboratory Tests 2 05/21/20 13:31: Estimated Mean Plasma Glucose 206H, Hemoglobin A1c 8.8 05/21/20 13:33: Blood Gas Bicarbonate Standard 20.2, Venous Blood pH 7.252L, Venous Blood Partial Pressure CO2 56.2H, Venous Blood Partial Pressure O2 31.7, Venous Blood Total Carbon Dioxide 25.9, Venous Blood HCO3 24.2, Venous Blood Oxygen Saturation 56.2L, Venous Blood Base Excess -4.0L 05/21/20 13:38: POC Glucose (Misc Panel) 521*H, POC Sodium (Misc Panel) 131L, POC Potassium (Misc Panel) 5.3H, POC Chloride (Misc Panel) 92L, POC Total CO2 (Misc Panel) 24.0, POC Blood Urea Nitrogen (Misc Panel 32H, POC Ionized Calcium (Misc Panel) 4.7, POC Creatinine (Misc Panel) 1.5H, POC Hematocrit (Misc Panel) 47.0 05/21/20 13:48: Immature Granulocyte % (Auto) 0.2, Neutrophils (%) (Auto) 67.4H, Lymphocytes (%) (Auto) 19.9L, Monocytes (%) (Auto) 5.6H, Eosinophils (%) (Auto) 6.3H, Basophils (%) (Auto) 0.6, Neutrophils # (Auto) 6.5, Lymphocytes # (Auto) 1.9, Monocytes # (Auto) 0.5, Eosinophils # (Auto) 0.6H, Basophils # (Auto) 0.1, Nucleated Red Blood Cells % (auto) 0.0, Magnesium Level 2.1, Total Bilirubin 0.5, Direct Bilirubin < 0.1, Aspartate Amino Transf (AST/SGOT) 13, Alanine Aminotransferase (ALT/SGPT) 18, Alkaline Phosphatase 48, Total Protein 6.7, Albumin 3.0L, Albumin/Globulin Ratio 0.8, B-Hydroxybutyrate > 46.00H 05/21/20 13:56: Urine Color YELLOW, Urine Appearance CLEAR, Urine pH 5.0, Urine Specific [place] 1.026, Urine Protein 2+H, Urine Glucose (UA) 3+H, Urine Ketones 2+H, Urine Blood 1+H, Urine Nitrite NEGATIVE, Urine Bilirubin NEGATIVE, Urine Urobilinogen 0.2, Urine Leukocyte Esterase NEGATIVE, Urine WBC (Auto) 1, Urine RBC (Auto) 1, Urine Hyaline Casts (Auto) 0, Urine Bacteria (Auto) NEGATIVE, Urine Squamous Epithelial Cells 0, Urine Mucus (Auto) SMALL, Urine Sperm (Auto) 05/21/20 14:17: Bedside Glucose (Misc Panel) 540*H 05/21/20 15:16: Bedside Glucose (Misc Panel) 486H 05/21/20 16:21: Bedside Glucose (Misc Panel) 396H CBC/BMP Laboratory Tests 05/21/20 13:48 Home Medications Scheduled Amlodipine Besylate (Amlodipine Besylate) 5 Mg Tablet, 5 MG PO DAILY Apixaban (Eliquis) 5 Mg Tablet, 5 MG PO BID Atorvastatin Calcium (Atorvastatin Calcium) 20 Mg Tablet, 40 MG PO QHS Docusate Sodium (Docusate Sodium) 100 Mg Capsule, 100 MG PO BID Insulin Glargine,Hum.rec.anlog (Lantus Solostar) 100 Unit/1 Ml Insuln.pen, 80 UNITS SC DAILY Insulin Human Regular (Humulin R) 100 Unit/1 Ml Vial, 18 UNITS SC TID Losartan Potassium (Cozaar) 50 Mg Tablet, 100 MG PO DAILY Pregabalin (Lyrica) 100 Mg Capsule, 100 MG PO DAILY Scheduled PRN Acetaminophen (Acetaminophen) 500 Mg Tablet, 1,000 MG PO Q6H PRN for PAIN Allergies Coded Allergies: aspirin (Verified Allergy, Intermediate, swelling, 11/22/18) A-FIB/CHADSVASC A-FIB History Current/History of A-Fib/PAF?: Yes Current PO Anticoag Therapy: Yes ADOLFO CORDOVA MD May 21, 2020 17:08
[2020-05-21] MEDS ORDERED: ACETAMINOPHEN 500 MG TAB PO PRN (17:15)
[2020-05-21 17:33] LABS: CALCIUM LEVEL 8.7 MG/DL (8.8-10.2); CREATININE FOR GFR 1.6 MG/DL (0.70-1.30); GLOMERULAR FILTRATION RATE 46.1 (>49); MAGNESIUM LEVEL 2.1 MG/DL (1.8-2.4); PHOSPHORUS LEVEL 1.9 MG/DL (2.5-4.9); POTASSIUM SERUM 4.6 MEQ/L (3.5-5.1)
[2020-05-21 17:50] VITALS: BP 119/59
[2020-05-21] MEDS: INSULIN IV RATE CHANGE DOCUMENTATION ML/HR XX SCH ×4 (18:05→23:09)
[2020-05-21 18:13] LABS: ABG BASE EXCESS 1.2 (-2.0-2.0); ABG HCO3 25.8 MEQ/L (22.0-26.0); ABG O2 SATURATION 92.2 % (95.0-99.0); ABG PARTIAL PRESSURE CO2 40.9 mmHg (35.0-45.0); ABG PARTIAL PRESSURE O2 59.4 mmHg (75.0-100.0); ABG STANDARD HCO3 25.4 MEQ/L (22.0-26.0); ABG TOTAL CO2 27.1 MEQ/L (23.0-31.0); ABG pH (ARTERIAL) 7.418 UNITS (7.350-7.450)
[2020-05-21 20:00] VITALS: BP 136/66
[2020-05-21] MEDS: APIXABAN 5 MG TAB (ELIQUIS) PO SCH (20:43)
[2020-05-21] MEDS: ATORVASTATIN 20 MG TAB PO SCH (20:43)
[2020-05-21] MEDS: DOCUSATE SODIUM 100 MG CAP PO SCH (20:43)
[2020-05-21] MEDS ORDERED: LOSARTAN 50MG TABLET PO SCH (21:00)
[2020-05-21] MEDS: HumaLOG INSULIN (NovoLOG) PER UNIT SC SCH (21:00)
[2020-05-21 21:53] LABS: CALCIUM LEVEL 8.2 MG/DL (8.8-10.2); CREATININE FOR GFR 1.54 MG/DL (0.70-1.30); GLOMERULAR FILTRATION RATE 48.2 (>49); MAGNESIUM LEVEL 1.9 MG/DL (1.8-2.4); PHOSPHORUS LEVEL 2.2 MG/DL (2.5-4.9); POTASSIUM SERUM 3.9 MEQ/L (3.5-5.1)
[2020-05-21] MEDS ORDERED: NS 0.45% 1,000 ML IV SCH (23:45)
[2020-05-21] MEDS ORDERED: POTASSIUM CHLORIDE 10 MEQ SR TABLET PO ONE (23:45)
[2020-05-22] VITALS: BP 139/61
[2020-05-22 02:25] LABS: CALCIUM LEVEL 7.8 MG/DL (8.8-10.2); CREATININE FOR GFR 1.37 MG/DL (0.70-1.30); GLOMERULAR FILTRATION RATE 55.2 (>49); MAGNESIUM LEVEL 1.9 MG/DL (1.8-2.4); PHOSPHORUS LEVEL 2.1 MG/DL (2.5-4.9); POTASSIUM SERUM 4.3 MEQ/L (3.5-5.1)
[2020-05-22 04:00] VITALS: BP 170/75
[2020-05-22] MEDS ORDERED: **hydrALAZINE HCL** 25 MG TAB PO ONE (05:45)
[2020-05-22 06:00] VITALS: BP 177/83
[2020-05-22] MEDS ORDERED: HumaLOG INSULIN (NovoLOG) PER UNIT SC ONE (06:00)
[2020-05-22 06:04] LABS: BASO # 0.1 10^3/uL (0.0-0.2); BASO % 0.6 % (0.0-1.0); EOS # 0.8 10^3/uL (0.0-0.5); EOS % 7.4 % (0.0-3.0); HEMATOCRIT 41.1 % (42.0-52.0); HEMOGLOBIN 13.8 g/dl (13.5-17.5); LYMPH # 2.3 10^3/uL (1.5-5.0); LYMPH % 20.4 % (24.0-44.0); MEAN CORPUSCULAR HEMOGLOBIN 30.7 pg (27.0-33.0); MEAN CORPUSCULAR HGB CONC 33.6 g/dl (32.0-36.5); MEAN CORPUSCULAR VOLUME 91.5 fl (80.0-96.0); MONO # 0.7 10^3/uL (0.0-0.8); MONO % 6.4 % (0.0-5.0); NEUTROPHILS # 7.3 10^3/uL (1.5-8.5); PLATELET COUNT, AUTOMATED 276 10^3/uL (150-450); RED BLOOD COUNT 4.49 10^6/uL (4.30-6.10); WHITE BLOOD COUNT 11.2 10^3/uL (4.0-10.0)
[2020-05-22 06:42] LABS: ALBUMIN 2.6 GM/DL (3.2-5.2); BILIRUBIN,TOTAL 0.5 MG/DL (0.2-1.0); CALCIUM LEVEL 8.3 MG/DL (8.8-10.2); CREATININE FOR GFR 1.33 MG/DL (0.70-1.30); GLOMERULAR FILTRATION RATE 57.1 (>49); MAGNESIUM LEVEL 1.8 MG/DL (1.8-2.4); POTASSIUM SERUM 4.8 MEQ/L (3.5-5.1)
[2020-05-22] MEDS ORDERED: HumaLOG INSULIN (NovoLOG) PER UNIT SC SCH ×3 (07:30→21:00)
[2020-05-22] MEDS: NS 1,000 ML IV SCH ×3 (07:39→20:32)
[2020-05-22 08:00] VITALS: BP 150/70
[2020-05-22] MEDS: HumaLOG INSULIN (NovoLOG) PER UNIT SC SCH ×7 (08:29→20:33)
[2020-05-22] MEDS: DOCUSATE SODIUM 100 MG CAP PO SCH ×2 (08:34→20:32)
[2020-05-22] MEDS: APIXABAN 5 MG TAB (ELIQUIS) PO SCH ×2 (08:34→20:32)
[2020-05-22] MEDS: amLODIPine 5 MG TAB PO SCH (08:34)
[2020-05-22] MEDS: PANTOPRAZOLE 40MG VIAL (C9113 PER 1) IV SCH (08:35)
[2020-05-22] MEDS: LOSARTAN 50MG TABLET PO SCH (08:41)
[2020-05-22] MEDS ORDERED: LEVEMIR (INSULIN DETEMIR) 1 UNITS/0.01ML SC SCH ×5 (09:00→21:00)
[2020-05-22] MEDS ORDERED: ENOXAPARIN 40MG/0.4ML SYRINGE (J1650 PER 10MG) SC SCH (09:00)
--- NOTE | 2020-05-22 10:31 | IPNPDOC ---
Date Seen The patient was seen on 05/22/20. Progress Note SUBJECTIVE: patient seen and examined at bedside. BG 430 this morning. Off insulin drip. SC insulin resumed. Increase AC dosing of scheduled lispro. Was given 16 units lispro early this am. denies chest pain, palpitations, n/v/d. Tolerating CC diet. OBJECTIVE PHYSICAL EXAMINATION: General: NAD, comfortable HEENT: PERRLA, EOMI, sclerae clear Neck: supple, normal ROM, no JVD Respiratory: lungs CTAB, no wheeze, no rales, no crackles CVS: RRR, normal S1, S2, no murmurs Abdo: soft, no masses, no hepatosplenomegaly, BS+, no rebound tenderness Extremities: no edema, pulses 2+, ingrown toenail right fifth digit, dry, cracked skin on bilateral lower extremities above the ankles, chronic venous stasis changes. No ulcerations. No signs of cellulitis. MSK: no joint deformities, normal ROM Neuro: no focal neuro deficits, moving all 4 extremities, CN2-12 intact. Strength 5/5 in all 4 extremities. No nystagmus. Psych: calm, cooperative, AAO x 3 LABORATORY DATA, IMAGING STUDIES, MICROBIOLOGY: Please see below. DVT prophylaxis ordered?: Y ASSESSMENT: 65 yo M with a hx of IDDM, HTN, CAD s/p [place], afib with RVR, COPD, DVT/PE (on eliquis) smoking, admitted to ICU for DKA management. Transitioned to SC insulin. Plan for downgrate to Med/Surg. . PLAN: #DKA: AG closed. repeat ABG 7.4. Tolerating PO CC diet. Transitioned to SC insulin, hyperglycemia overnight. Levemor 60 SC, lispro 15 units TID. Repeat BMP and ABG. ISS. Hypoglycemic precaution. director human services to assist with medications. Dietary eval. Diabetic education. Podiatry, ophthalmology outpatient. #MABEL: Cr trending down with IVF hydration. IV NS. #Hyponatremia: NA 132. C/w IV NS 150 cc/hr. #Chronic atrial fibrillation: AC Eliquis. Metoprolol. #CAD: allergic to ASA. Not on statin. Start lipitor 40 mg PO qhs. #HTN: increase losartan 100 mg PO daily. Add amlodipine 5 mg daily. #CKD3: Cr 1.5. Repeat BMP. Avoid nephrotoxins. #Hx DVT: eliquis #COPD: duonebs prn. Advair. #Neuropathy: pregabalin, has not taken for several months. Start low dose, titrate up as outpatient. #Smoker: smoking cessation teaching done. Nicotine patch. #GI ppx: protonix IV daily. DVT ppx: eliquis, per his partner, he ran out of it and has not refilled. Resume. Contact PCP in am to determine longterm AC plan Code status: Full Code, per patient. VS, I&O, 24H, Fishbone Vital Signs/I&O Vital Signs Date Time Temp Pulse Resp B/P (MAP) Pulse Ox O2 Delivery O2 Flow Rate FiO2 05/22/20 08:41 150/70 05/22/20 08:34 90 05/22/20 06:00 18 94 Room Air 05/22/20 04:00 98.6 I&O- Last 24 Hours up to 6 AM 05/22/20 06:00 Intake Total 2713 ml Output Total 750 ml Balance 1963 ml Laboratory Data 24H LABS Laboratory Tests 2 05/21/20 13:31: Estimated Mean Plasma Glucose 206H, Hemoglobin A1c 8.8 05/21/20 13:33: Blood Gas Bicarbonate Standard 20.2, Venous Blood pH 7.252L, Venous Blood Partial Pressure CO2 56.2H, Venous Blood Partial Pressure O2 31.7, Venous Blood Total Carbon Dioxide 25.9, Venous Blood HCO3 24.2, Venous Blood Oxygen Saturati on 56.2L, Venous Blood Base Excess -4.0L 05/21/20 13:38: POC Glucose (Misc Panel) 521*H, POC Sodium (Misc Panel) 131L, POC Potassium (Misc Panel) 5.3H, POC Chloride (Misc Panel) 92L, POC Total CO2 (Misc Panel) 24.0, POC Blood Urea Nitrogen (Misc Panel 32H, POC Ionized Calcium (Misc Panel) 4.7, POC Creatinine (Misc Panel) 1.5H, POC Hematocrit (Misc Panel) 47.0 05/21/20 13:48: Immature Granulocyte % (Auto) 0.2, Neutrophils (%) (Auto) 67.4H, Lymphocytes (%) (Auto) 19.9L, Monocytes (%) (Auto) 5.6H, Eosinophils (%) (Auto) 6.3H, Basophils (%) (Auto) 0.6, Neutrophils # (Auto) 6.5, Lymphocytes # (Auto) 1.9, Monocytes # (Auto) 0.5, Eosinophils # (Auto) 0.6H, Basophils # (Auto) 0.1, Nucleated Red Blood Cells % (auto) 0.0, Magnesium Level 2.1, Total Bilirubin 0.5, Direct Bilirubin < 0.1, Aspartate Amino Transf (AST/SGOT) 13, Alanine Aminotransferase (ALT/SGPT) 18, Alkaline Phosphatase 48, Total Protein 6.7, Albumin 3.0L, Albumin/Globulin Ratio 0.8, B-Hydroxybutyrate > 46.00H 05/21/20 13:56: Urine Color YELLOW, Urine Appearance CLEAR, Urine pH 5.0, Urine Specific [place] 1.026, Urine Protein 2+H, Urine Glucose (UA) 3+H, Urine Ketones 2+H, Urine Blood 1+H, Urine Nitrite NEGATIVE, Urine Bilirubin NEGATIVE, Urine Urobilinogen 0.2, Urine Leukocyte Esterase NEGATIVE, Urine WBC (Auto) 1, Urine RBC (Auto) 1, Urine Hyaline Casts (Auto) 0, Urine Bacteria (Auto) NEGATIVE, Urine Squamous Epithelial Cells 0, Urine Mucus (Auto) SMALL, Urine Sperm (Auto) 05/21/20 14:17: Bedside Glucose (Misc Panel) 540*H 05/21/20 15:16: Bedside Glucose (Misc Panel) 486H 05/21/20 16:21: Bedside Glucose (Misc Panel) 396H 05/21/20 16:56: Anion Gap 9, Glomerular Filtration Rate 46.1L, Calcium Level 8.7L, Phosphorus Level 1.9L, Magnesium Level 2.1 05/21/20 18:06: Bedside Glucose (Misc Panel) 283H 05/21/20 18:07: Blood Gas Bicarbonate Standard 25.4, Arterial Blood pH 7.418, Arterial Blood Partial Pressure CO2 40.9, Arterial Blood Partial Pressure O2 59.4L, Arterial Blood Total CO2 27.1, Arterial Blood HCO3 25.8, Arterial Blood Base Excess 1.2, Arterial Blood Oxygen Saturation 92.2L 05/21/20 18:57: Bedside Glucose (Misc Panel) 232H 05/21/20 20:38: Bedside Glucose (Misc Panel) 255H 05/21/20 21:01: Anion Gap 4L, Glomerular Filtration Rate 48.2L, Calcium Level 8.2L, Phosphorus Level 2.2L, Magnesium Level 1.9 05/21/20 23:07: Bedside Glucose (Misc Panel) 168H 05/22/20 00:18: Bedside Glucose (Misc Panel) 166H 05/22/20 01:42: Anion Gap 6L, Glomerular Filtration Rate 55.2, Calcium Level 7.8L, Phosphorus Level 2.1L, Magnesium Level 1.9 05/22/20 05:49: Bedside Glucose (Misc Panel) 459H 05/22/20 05:50: Anion Gap 9, Glomerular Filtration Rate 57.1, Calcium Level 8.3L, Magnesium Level 1.8, Immature Granulocyte % (Auto) 0.2, Neutrophils (%) (Auto) 65.0, Lymphocytes (%) (Auto) 20.4L, Monocytes (%) (Auto) 6.4H, Eosinophils (%) (Auto) 7.4H, Basophils (%) (Auto) 0.6, Neutrophils # (Auto) 7.3, Lymphocytes # (Auto) 2.3, Monocytes # (Auto) 0.7, Eosinophils # (Auto) 0.8H, Basophils # (Auto) 0.1, Nucleated Red Blood Cells % (auto) 0.0, Total Bilirubin 0.5, Aspartate Amino Transf (AST/SGOT) 13, Alanine Aminotransferase (ALT/SGPT) 15, Alkaline Phospha tase 39L, Total Protein 6.0L, Albumin 2.6L, Albumin/Globulin Ratio 0.8 05/22/20 07:43: Bedside Glucose (Misc Panel) 401H 05/22/20 09:49: Bedside Glucose (Misc Panel) 308H CBC/BMP Laboratory Tests 05/21/20 13:48 05/21/20 16:56 05/21/20 21:01 05/22/20 01:42 05/22/20 05:50 ADOLFO CORDOVA MD May 22, 2020 10:31
[2020-05-22] MEDS: PREGABALIN 100 MG CAP (LYRICA) PO SCH (10:58)
[2020-05-22] MEDS: NICOTINE 21MG/24HR 1 EA TRANSDERMAL TD SCH (10:58)
--- NOTE | 2020-05-22 12:39 | CR.PDOC ---
General Date of Consultation: May 22, 2020 Consultation REASON FOR CONSULTATION/CHIEF COMPLAINT: Skin changes bilateral lower extremity, suspect venous insufficiency HISTORY OF PRESENT ILLNESS: This a very pleasant 65-year-old patient with ex tensive past medical history admitted for diabetic ketoacidosis who was noted to have thick scaly skin on the bilateral lower extremities and concern for venous insufficiency. We have been consulted to evaluate. On initial exam it is clear the patient has bilateral lower extremity swelling, thickened skin and brawny edema, flaky skin, CONSISTENT with venous stasis changes which is not uncommon with patient's history of DVT and likely venous reflux. However, I'm not able to easily palpate pulses, nor am I able to easily Doppler signals distally. He says he does get some pain in his legs when he walks a block or 2, and some of the pain he describes sounds like neuropathic pain, with burning shooting to the foot, but some of it sounds like claudication with crampy pain in the calf that resolves with rest. It's probably a combination of both. He also may have some heaviness and aching in his legs when he is walking due to venous insufficiency as well. ALLERGIES: Please see below. HOME MEDICATIONS: Please see below. PAST MEDICAL HISTORY: IDDM, CAD, HLD, AF, CHF, HTN, COPD, hx DVT/PE, depression, anxiety, agoraphobia, hx HEP C, CRI, tobacco abuse PAST SURGICAL HISTORY: Cataract surgery Cardiac catheterization FAMILY HISTORY: CAD SOCIAL HISTORY: Long-standing history of tobacco abuse REVIEW OF SYSTEMS: CONSTITUTIONAL: Denies fevers chills positive malaise HEENT: Denies new vision or hearing loss CARDIOVASCULAR: Denies chest pain positive palpitations RESPIRATORY: Positive shortness of breath positive cough negative hemoptysis GENITOURINARY: Denies dysuria MUSCULOSKELETAL: Positive leg pain positive back pain positive leg swelling positive claudication positive neuropathy GASTROINTESTINAL: Positive gastritis and abdominal pain positive constipation SKIN: Positive dry flaky skin bilateral lower extremities no ulcers NEUROLOGICAL: Denies headaches seizures or focal deficit PSYCHIATRIC: Positive anxiety depression or a phobia ENDOCRINE: Positive poorly controlled diabetes HEMATOLOGIC/LYMPHATIC: Positive history of DVT PE ALLERGIC/IMMUNOLOGIC: Denies PHYSICAL EXAMINATION: VITAL SIGNS: Please see below. GENERAL APPEARANCE: Medically stable and was sitting up in a chair HEENT: Normocephalic, TMI, vision grossly intact RESPIRATORY: Slightly coarse breath sounds bilaterally, cough with deep inspiration CARDIOVASCULAR: Irregular rate and rhythm ABDOMEN: Soft nontender nondistended EXTREMITIES: Unable to palpate pulses in the feet, and Doppler signals are difficult to auscultate due to thick edematous skin but I was able to get monophasic flow in both posterior tibials and faint monophasic flow in the dorsal pedis arteries. The skin of both lower extremities below the knee are thickened, there is brawny edema, flaky skin is noted, no ulcerations are noted. NEUROLOGICAL: Alert and oriented 3, no acute distress moves all extremities equally PSYCHIATRIC: Pleasant and cooperative with our exam LABORATORY DATA: Please see below. ASSESSMENT/PLAN: Very pleasant 65-year-old gentleman with suspected venous insufficiency, likely concurrent arterial insufficiency due to long-standing history of tobacco abuse and poorly controlled diabetes 1. Arterial duplex bilateral lower extremities to evaluate for arterial insufficiency prior to suggesting compression for the lower extremities. We like to make sure he has not arterial flow to support compression. 2. Elevate the bilateral lower extremities above the level of the heart at least 30 minutes 3 times a day to help with venous return. 3. Keep the skin on the bilateral lower extremities clean and lotion twice a day. 4. If arterial flow is adequate, we would recommend compression to the bilateral lower extremity Wolf. Initially, this can be accomplished with an Unna boot and then he can be converted to lotion and stockings daily after a week of Unna boot therapy. Alternatively, compression stockings could be worn daily and removed at night. He would need 20-30 mm graduated compression, knee-high. We would then plan to set him up for a venous insufficiency study outpatient. We appreciate the opportunity to participate in the care of this patient. Vital Signs/I&O Vital Signs Date Time Temp Pulse Resp B/P (MAP) Pulse Ox O2 Delivery O2 Flow Rate FiO2 05/22/20 08:41 150/70 05/22/20 08:34 90 05/22/20 08:00 98.5 20 95 Room Air I&O- Last 24 Hours up to 6 AM 05/22/20 05:59 Intake Total 2113 ml Output Total 600 ml Balance 1513 ml Laboratory Data Labs 24H Laboratory Tests 2 05/21/20 13:31: Estimated Mean Plasma Glucose 206H, Hemoglobin A1c 8.8 05/21/20 13:33: Blood Gas Bicarbonate Standard 20.2, Venous Blood pH 7.252L, Venous Blood Partial Pressure CO2 56.2H, Venous Blood Partial Pressure O2 31.7, Venous Blood Total Carbon Dioxide 25.9, Venous Blood HCO3 24.2, Venous Blood Oxygen Saturation 56.2L, Venous Blood Base Excess -4.0L 05/21/20 13:38: POC Glucose (Misc Panel) 521*H, POC Sodium (Misc Panel) 131L, POC Potassium (Misc Panel) 5.3H, POC Chloride (Misc Panel) 92L, POC Total CO2 (Misc Panel) 24.0, POC Blood Urea Nitrogen (Misc Panel 32H, POC Ionized Calcium (Misc Panel) 4.7, POC Creatinine (Misc Panel) 1.5H, POC Hematocrit (Misc Panel) 47.0 05/21/20 13:48: Immature Granulocyte % (Auto) 0.2, Neutrophils (%) (Auto) 67.4H, Lymphocytes (%) (Auto) 19.9L, Monocytes (%) (Auto) 5.6H, Eosinophils (%) (Auto) 6.3H, Basophils (%) (Auto) 0.6, Neutrophils # (Auto) 6.5, Lymphocytes # (Auto) 1.9, Monocytes # (Auto) 0.5, Eosinophils # (Auto) 0.6H, Basophils # (Auto) 0.1, Nucleated Red Blood Cells % (auto) 0.0, Magnesium Level 2.1, Total Bilirubin 0.5, Direct Bilirubin < 0.1, Aspartate Amino Transf (AST/SGOT) 13, Alanine Aminotransferase (ALT/SGPT) 18, Alkaline Phosphatase 48, Total Protein 6.7, Albumin 3.0L, Albumin/Globulin Ratio 0.8, B-Hydroxybutyrate > 46.00H 05/21/20 13:56: Urine Color YELLOW, Urine Appearance CLEAR, Urine pH 5.0, Urine Specific [place] 1.026, Urine Protein 2+H, Urine Glucose (UA) 3+H, Urine Ketones 2+H, Urine Blood 1+H, Urine Nitrite NEGATIVE, Urine Bilirubin NEGATIVE, Urine Urobilinogen 0.2, Urine Leukocyte Esterase NEGATIVE, Urine WBC (Auto) 1, Urine RBC (Auto) 1, Urine Hyaline Casts (Auto) 0, Urine Bacteria (Auto) NEGATIVE, Urine Squamous Epithelial Cells 0, Urine Mucus (Auto) SMALL, Urine Sperm (Auto) 05/21/20 14:17: Bedside Glucose (Misc Panel) 540*H 05/21/20 15:16: Bedside Glucose (Misc Panel) 486H 05/21/20 16:21: Bedside Glucose (Misc Panel) 396H 05/21/20 16:56: Anion Gap 9, Glomerular Filtration Rate 46.1L, Calcium Level 8.7L, Phosphorus Level 1.9L, Magnesium Level 2.1 05/21/20 18:06: Bedside Glucose (Misc Panel) 283H 05/21/20 18:07: Blood Gas Bicarbonate Standard 25.4, Arterial Blood pH 7.418, Arterial Blood Partial Pressure CO2 40.9, Arterial Blood Partial Pressure O2 59.4L, Arterial Blood Total CO2 27.1, Arterial Blood HCO3 25.8, Arterial Blood Base Excess 1.2, Arterial Blood Oxygen Saturation 92.2L 05/21/20 18:57: Bedside Glucose (Misc Panel) 232H 05/21/20 20:38: Bedside Glucose (Misc Panel) 255H 05/21/20 21:01: Anion Gap 4L, Glomerular Filtration Rate 48.2L, Calcium Level 8.2L, Phosphorus Level 2.2L, Magnesium Level 1.9 05/21/20 23:07: Bedside Glucose (Misc Panel) 168H 05/22/20 00:18: Bedside Glucose (Misc Panel) 166H 05/22/20 01:42: Anion Gap 6L, Glomerular Filtration Rate 55.2, Calcium Level 7.8L, Phosphorus Level 2.1L, Magnesium Level 1.9 05/22/20 05:49: Bedside Glucose (Misc Panel) 459H 05/22/20 05:50: Anion Gap 9, Glomerular Filtration Rate 57.1, Calcium Level 8.3L, Magnesium Level 1.8, Immature Granulocyte % (Auto) 0.2, Neutrophils (%) (Auto) 65.0, Lymp hocytes (%) (Auto) 20.4L, Monocytes (%) (Auto) 6.4H, Eosinophils (%) (Auto) 7.4H, Basophils (%) (Auto) 0.6, Neutrophils # (Auto) 7.3, Lymphocytes # (Auto) 2.3, Monocytes # (Auto) 0.7, Eosinophils # (Auto) 0.8H, Basophils # (Auto) 0.1, Nucleated Red Blood Cells % (auto) 0.0, Total Bilirubin 0.5, Aspartate Amino Transf (AST/SGOT) 13, Alanine Aminotransferase (ALT/SGPT) 15, Alkaline Phosphatase 39L, Total Protein 6.0L, Albumin 2.6L, Albumin/Globulin Ratio 0.8 05/22/20 07:43: Bedside Glucose (Misc Panel) 401H 05/22/20 09:49: Bedside Glucose (Misc Panel) 308H 05/22/20 11:03: Bedside Glucose (Misc Panel) 226H CBC/BMP Laboratory Tests 05/21/20 13:48 05/21/20 16:56 05/21/20 21:01 05/22/20 01:42 05/22/20 05:50 Allergies Coded Allergies: aspirin (Verified Allergy, Intermediate, swelling, 11/22/18) Home Medications Scheduled Insulin Glargine,Hum.rec.anlog (Lantus Solostar) 100 Unit/1 Ml Insuln.pen, 84 UNITS SC DAILY, (Reported) Insulin Human Regular (Humulin R) 100 Unit/1 Ml Vial, 10 UNITS SC TID, (Reported) Losartan Potassium (Losartan Potassium) 50 Mg Tablet, 50 MG PO QHS, (Reported) Scheduled PRN Acetaminophen (Acetaminophen) 500 Mg Tablet, 1,000 MG PO Q6H PRN for PAIN, (Reported) DAYNE ASTORGA MD May 22, 2020 12:39
[2020-05-22 13:23] LABS: BLOOD UREA NITROGEN 24 MG/DL (7-18); CALCIUM LEVEL 8.6 MG/DL (8.8-10.2); CARBON DIOXIDE LEVEL 26 MEQ/L (21-32); CHLORIDE LEVEL 105 MEQ/L (98-107); CREATININE FOR GFR 1.14 MG/DL (0.70-1.30); GLOMERULAR FILTRATION RATE > 60.0 (>49); GLUCOSE, FASTING 166 MG/DL (70-100); POTASSIUM SERUM 4.4 MEQ/L (3.5-5.1); SODIUM LEVEL 138 MEQ/L (136-145)
[2020-05-22 14:00] VITALS: BP 143/74
--- NOTE | 2020-05-22 15:53 | REP ---
INDICATION: atherosclerosis in the [place] arteries with claudication COMPARISON: None. TECHNIQUE: Real time obregon scale and Duplex Doppler evaluation of the bilateral lower extremity arterial vasculature using linear high frequency transducer. FINDINGS: Obregon scale and duplex doppler images demonstrate moderate atherosclerotic plaquing bilaterally. Triphasic and biphasic waveforms are seen in bilaterally except for monophasic waveforms throughout the right posterior tibial artery. The distal right posterior tibial artery is occluded with distal reconstitution and trickle flow. Heavy calcific plaque is seen in the distal left anterior tibial artery. Some segments do not demonstrate definite flow either due to shadowing from the atherosclerotic calcification versus partial occlusion. Peak systolic velocities (cm/sec) Common femoral artery: Right 118; Left 117 Profunda femoris: Right 93; Left 86 SFA (proximal): Right 130; Left 123 SFA (mid): Right 51; Left 60 SFA (distal): Right 75; Left 87 Popliteal artery: Right 60; Left 114 ISAURA (prox.): Right 35; Left 34 Tibioperoneal trunk: Right 57; Left 80 MANPOWER DEVELOPMENT SPECIALIST MANAGER (prox.): Right 62; Left 58 MANPOWER DEVELOPMENT SPECIALIST MANAGER (distal): Right 9; Left 114 ISAURA (distal): Right 60; Left 28 IMPRESSION: Moderate atherosclerotic plaquing bilaterally. The distal right posterior tibial artery is occluded with distal reconstitution and trickle flow. Heavy calcific plaque is seen in the distal left anterior tibial artery. Some segments do not demonstrate definite flow either due to shadowing from the atherosclerotic calcification versus partial occlusion. <Electronically signed by Antonio Obregon > 05/22/20 [id number]
[2020-05-22] MEDS: ATORVASTATIN 20 MG TAB PO SCH (20:32)
[2020-05-22 22:00] VITALS: BP 147/74
[2020-05-23] MEDS: NS 1,000 ML IV SCH (03:26)
[2020-05-23 06:00] VITALS: BP 145/76
[2020-05-23 06:13] LABS: BASO # 0.1 10^3/uL (0.0-0.2); BASO % 0.7 % (0.0-1.0); EOS # 0.9 10^3/uL (0.0-0.5); EOS % 12.3 % (0.0-3.0); HEMOGLOBIN 12.3 g/dl (13.5-17.5); LYMPH % 27.4 % (24.0-44.0); MEAN CORPUSCULAR HEMOGLOBIN 30.4 pg (27.0-33.0); MEAN CORPUSCULAR HGB CONC 33.2 g/dl (32.0-36.5); MEAN CORPUSCULAR VOLUME 91.6 fl (80.0-96.0); MONO # 0.6 10^3/uL (0.0-0.8); NEUTROPHILS # 3.8 10^3/uL (1.5-8.5); NEUTROPHILS % 51.3 % (36.0-66.0); PLATELET COUNT, AUTOMATED 236 10^3/uL (150-450); RED BLOOD COUNT 4.04 10^6/uL (4.30-6.10); WHITE BLOOD COUNT 7.4 10^3/uL (4.0-10.0)
[2020-05-23 06:41] LABS: ALBUMIN 2.3 GM/DL (3.2-5.2); ALT/SGPT 14 U/L (12-78); BILIRUBIN,TOTAL 0.3 MG/DL (0.2-1.0); BLOOD UREA NITROGEN 19 MG/DL (7-18); CALCIUM LEVEL 8.2 MG/DL (8.8-10.2); CARBON DIOXIDE LEVEL 27 MEQ/L (21-32); CHLORIDE LEVEL 106 MEQ/L (98-107); CREATININE FOR GFR 1.01 MG/DL (0.70-1.30); GLOMERULAR FILTRATION RATE > 60.0 (>49); GLUCOSE, FASTING 253 MG/DL (70-100); POTASSIUM SERUM 4.1 MEQ/L (3.5-5.1); SODIUM LEVEL 137 MEQ/L (136-145); TOTAL PROTEIN 5.5 GM/DL (6.4-8.2)
[2020-05-23 06:42] LABS: MAGNESIUM LEVEL 1.5 MG/DL (1.8-2.4)
[2020-05-23] MEDS: HumaLOG INSULIN (NovoLOG) PER UNIT SC SCH ×4 (07:30→16:23)
[2020-05-23] MEDS ORDERED: HumaLOG INSULIN (NovoLOG) PER UNIT SC SCH (07:30)
[2020-05-23] MEDS: NICOTINE 21MG/24HR 1 EA TRANSDERMAL TD SCH (08:01)
[2020-05-23 08:02] VITALS: BP 202/99
[2020-05-23] MEDS: amLODIPine 5 MG TAB PO SCH (08:02)
[2020-05-23] MEDS: DOCUSATE SODIUM 100 MG CAP PO SCH (08:02)
[2020-05-23] MEDS: APIXABAN 5 MG TAB (ELIQUIS) PO SCH ×2 (08:02→16:23)
[2020-05-23] MEDS: LOSARTAN 50MG TABLET PO SCH (08:02)
[2020-05-23] MEDS: PREGABALIN 100 MG CAP (LYRICA) PO SCH (08:02)
[2020-05-23] MEDS: PANTOPRAZOLE 40MG VIAL (C9113 PER 1) IV SCH (08:03)
[2020-05-23] MEDS ORDERED: LEVEMIR (INSULIN DETEMIR) 1 UNITS/0.01ML SC SCH (09:00)
--- NOTE | 2020-05-23 09:00 | IPNPDOC ---
Date Seen The patient was seen on 05/23/20. Progress Note Patient seen and examined. Arterial duplex reviewed by lateral lower extremities. Although the patient does have moderate plaque throughout the femoral popliteal vessels, he does not have any focal stenoses or occlusions. His biphasic and triphasic flow to the knee. Below the knee on the right, he is triphasic flow in the anterior tibial artery, but monophasic in the posterior tibial artery. On the left, he has triphasic flow in the posterior tibial artery but biphasic in the anterior tibial artery. Overall, despite calcified tibial disease, his arterial flow is decent. I do not believe he needs arterial intervention at this time since he has no ulcers or wounds. Regarding his venous insufficiency, we would like to see the patient outpatient to get a venous duplex study and monitor his suspected venous insufficiency. For now, we recommend keeping the legs clean and dry, thick amount of lotion to the skin twice a day, and either Tubigrip compression or Unna boot compression. I think it is unlikely the patient has the resources to obtain appropriate compression stockings, and although knee-high JERRY hose are better than nothing, they frequently are ill fitting. Tubigrip may be a better option as the patient can remove it easily and put it into the wash at home. Alternatively, he can have Unna boot compression but this would need to be changed weekly. Recommend discussing with wound care nurse to obtain Tubigrip versus Unna boots. The patient should follow-up with us in a few weeks after discharge, and we can further workup his venous insufficiency as an outpatient. We appreciate the opportunity to participate in the care of this patient. VS, I&O, 24H, Fishbone Vital Signs/I&O Vital Signs Date Time Temp Pulse Resp B/P (MAP) Pulse Ox O2 Delivery O2 Flow Rate FiO2 05/23/20 08:02 79 202/99 05/23/20 06:00 97.8 20 93 05/22/20 14:00 Room Air I&O- Last 24 Hours up to 6 AM 05/23/20 06:00 Intake Total 1455 ml Output Total 2000 ml Balance -545 ml Laboratory Data 24H LABS Laboratory Tests 2 05/22/20 09:49: Bedside Glucose (Misc Panel) 308H 05/22/20 11:03: Bedside Glucose (Misc Panel) 226H 05/22/20 12:35: Bedside Glucose (Misc Panel) 184H 05/22/20 12:45: Anion Gap 7L, Glomerular Filtration Rate > 60.0, Calcium Level 8.6L 05/22/20 16:38: Bedside Glucose (Misc Panel) 192H 05/22/20 19:24: Bedside Glucose (Misc Panel) 292H 05/23/20 05:55: Immature Granulocyte % (Auto) 0.3, Neutrophils (%) (Auto) 51.3, Lymphocytes (%) (Auto) 27.4, Monocytes (%) (Auto) 8.0H, Eosinophils (%) (Auto) 12.3H, Basophils (%) (Auto) 0.7, Neutrophils # (Auto) 3.8, Lymphocytes # (Auto) 2.0, Monocytes # (Auto) 0.6, Eosinophils # (Auto) 0.9H, Basophils # (Auto) 0.1, Nucleated Red Blood Cells % (auto) 0.0, Anion Gap 4L, Glomerular Filtration Rate > 60.0, Calcium Level 8.2L, Magnesium Level 1.5L, Total Bilirubin 0.3, Aspartate Amino Transf (AST/SGOT) 12, Alanine Aminotransferase (ALT/SGPT) 14, Alkaline Phosphatase 36L, Total Protein 5.5L, Albumin 2.3L, Albumin/Globulin Ratio 0.7 CBC/BMP Laboratory Tests 05/22/20 12:45 05/23/20 05:55 DAYNE ASTORGA MD May 23, 2020 09:00
--- NOTE | 2020-05-23 09:13 | DS.PDOC ---
Discharge Summary General Date of Admission May 21, 2020 at 16:27 Date of Discharge 05/23/30 Attending Physician: ADOLFO CORDOVA MD Discharge Summary PROCEDURES PERFORMED DURING STAY: [None]. ADMITTING DIAGNOSES: DKA MABEL Chronic afib CAD HTN CKD3 hx of DVT COPD Neuropathy smoker DISCHARGE DIAGNOSES: DKA MABEL Chronic afib CAD HTN CKD3 hx of DVT COPD Neuropathy smoker chronic venous insufficiency peripheral arterial disease hyponatremia COMPLICATIONS/CHIEF COMPLAINT: DKA. HISTORY OF PRESENT ILLNESS: 65 yo M with a hx of IDDM, HTN, CAD s/p CT, afib with RVR, COPD, DVT/PE (on eliquis) smoking, presented to [facility] ED with thirst, polyuria and blurred vision. He reports not eating breakfast, and did not take insulin this morning. His partner manages his medications and he has a poor understanding of his diabetes. He also reports having a difficult time paying for insulin. Home regimen 84 units lantus qdaily and humulin 10 units TID. He denies chest pain, shortness of breath, fevers, chills, palpitations, or n/v/d. On arrival to ED, vitals BP 131/94. T 96.8. HR 112. RR 20. SpO2 97%. BG 540. b- hydroxybutarate > 46. pH on VBG 7.2. AG 17. Sodium 131 (hollis 141), Cl 92. K 5.3. EKG sinus arrhythmia. Started on insulin drip in ED. Given 1L NS bolus. Being admitted to ICU for management of DKA. HOSPITAL COURSE: #DKA: admit to ICU. VBG 7.2. IVF NS 175 cc/hr. FSBS q1h. BMP q4h. Monitor K, Mg, Phos. Insulin drip. Transitioned to SC insulin, resumed diet once AG closed, BG<250, pH>7.3. Stopped insulin drip 2 hours after SC insulin started. Increased home insulin regimen on DC. Lantus 80 mg SC dialy, humulin 18 units TID with meals. director of environmental services to assist with medications.Provided referral to [employer] to assist with payment for first month. Diabetic education provided. Close PCP follow (sees resident clinic Dr. Rodriguez). Needs ophthalmology outpatient . #Chronic atrial fibrillation: AC Eliquis. Metoprolol. #CAD: allergic to ASA. Not on statin. Start lipitor 40 mg PO qhs. #Hyponatremia: NA 132. improved with IV NS. #HTN: increased losartan 100 mg PO daily, added amlodipine 5 mg PO daily. #MABEL on CKD. Resolved, Cr 1.5 -> 1.0. Avoid nephrotoxins. #Hx DVT: eliquis, patient stated he ran out 2 weeks ago. Refilled. PCP f/u to determine duration of therapy. #COPD: duonebs prn. Advair. #Neuropathy: pregabalin, start low dose, 100 mg po daily, titrate outpatient. Seen by Dr. Hansen inpatient, performed debridement. Follow up in 2 months in clinic. #Chronic venous insufficiency: will see Dr. Bailey in clinic, for venous duplex study. Apply lotion bid. Compression stockings knee high (unna boot, or tubigrip possibly outpatient with DME referral by PCP). #PAD: consulted vascular. Arterial dopplers showing moderate plaques in femoral popliteal vessels, no focal stenoses or occlusions. No need for arterial intervention now. F/u outpatient. #Smoker: smoking cessation teaching done. Nicotine patch. #GI ppx: protonix IV daily. DVT ppx: eliquis Code status: Full Code, per patient. DISCHARGE MEDICATIONS: Please see below. ALLERGIES: Please see below. PHYSICAL EXAMINATION ON DISCHARGE: VITAL SIGNS: Please see below. General: NAD, comfortable HEENT: PERRLA, EOMI, sclerae clear Neck: supple, normal ROM, no JVD Respiratory: lungs CTAB, no wheeze, no rales, no crackles CVS: RRR, normal S1, S2, no murmurs Abdo: soft, no masses, no hepatosplenomegaly, BS+, no rebound tenderness Extremities: no edema, pulses weak, ingrown toenail right fifth digit, dry, cracked skin on bilateral lower extremities above the ankles, chronic venous s tasis changes. No ulcerations. No signs of cellulitis. MSK: no joint deformities, normal ROM Neuro: no focal neuro deficits, moving all 4 extremities, CN2-12 intact. Strength 5/5 in all 4 extremities. No nystagmus. Psych: calm, cooperative, AAO x 3 LABORATORY DATA: Please see below. IMAGING: Bilateral LE arterial doppler: IMPRESSION: Moderate atherosclerotic plaquing bilaterally. The distal right posterior tibial artery is occluded with distal reconstitution and trickle flow. Heavy calcific plaque is seen in the distal left anterior tibial artery. Some segments do not demonstrate definite flow either due to shadowing from the atherosclerotic calcification versus partial occlusion PROGNOSIS: god ACTIVITY: [As tolerated]. DIET: consistent carbohydrate DISCHARGE PLAN: home with PCP, endocrinology and vascular surgery follow up. DISPOSITION: home DISCHARGE INSTRUCTIONS: PLEASE FOLLOW UP WITH YOUR PRIMARY CARE DOCTOR WITHIN 2-3 DAYS PLEASE FOLLOW UP WITH VASCULAR SURGERY IN 2-3 WEEKS. PLEASE WEAR COMPRESSION STOCKINGS PLEASE TAKE YOUR MEDICATIONS PRESCRIBED IF YOU DEVELOP CHEST PAIN, SHORTNESS OF BREATH, FEVERS, CHILLS, BLEEDING OR OTHERWISE WORSENING FO YOUR SYMPTOMS, PLASE CALL 911 OR RETURN TO THE EMERGENCY DEPARTMENT. ITEMS TO FOLLOWUP ON ON OUTPATIENT: VENOUS DOPPLERS WITH VASCULAR SURGERY DIABETIC CONTROL ENDOCRINOLOGY REFERRAL DISCHARGE CONDITION: [Stable]. TIME SPENT ON DISCHARGE: Greater than 30 minutes. Vital Signs/I&Os Vital Signs Date Time Temp Pulse Resp B/P (MAP) Pulse Ox O2 Delivery O2 Flow Rate FiO2 05/23/20 08:02 79 202/99 05/23/20 06:00 97.8 20 93 05/22/20 14:00 Room Air I&O- Last 24 Hours up to 6 AM 05/23/20 06:00 Intake Total 1455 ml Output Total 2000 ml Balance -545 ml Laboratory Data Labs 24H Laboratory Tests 2 05/22/20 09:49: Bedside Glucose (Misc Panel) 308H 05/22/20 11:03: Bedside Glucose (Misc Panel) 226H 05/22/20 12:35: Bedside Glucose (Misc Panel) 184H 05/22/20 12:45: Anion Gap 7L, Glomerular Filtration Rate > 60.0, Calcium Level 8.6L 05/22/20 16:38: Bedside Glucose (Misc Panel) 192H 05/22/20 19:24: Bedside Glucose (Misc Panel) 292H 05/23/20 05:55: Immature Granulocyte % (Auto) 0.3, Neutrophils (%) (Auto) 51.3, Lymphocytes (%) (Auto) 27.4, Monocytes (%) (Auto) 8.0H, Eosinophils (%) (Auto) 12.3H, Basophils (%) (Auto) 0.7, Neutrophils # (Auto) 3.8, Lymphocytes # (Auto) 2.0, Monocytes # (Auto) 0.6, Eosinophils # (Auto) 0.9H, Basophils # (Auto) 0.1, Nucleated Red Blood Cells % (auto) 0.0, Anion Gap 4L, Glomerular Filtration Rate > 60.0, Calcium Level 8.2L, Magnesium Level 1.5L, Total Bilirubin 0.3, Aspartate Amino Transf (AST/SGOT) 12, Alanine Aminotransferase (ALT/SGPT) 14, Alkaline Phosphatase 36L, Total Protein 5.5L, Albumin 2.3L, Albumin/Globulin Ratio 0.7 CBC/BMP Laboratory Tests 05/22/20 12:45 05/23/20 05:55 FSBS Laboratory Tests Test 05/22/20 09:49 05/22/20 11:03 05/22/20 12:35 05/22/20 16:38 Range/Units Bedside Glucose (Misc Panel) 308 226 184 192 80-115 MG/DL Test 05/22/20 19:24 Range/Units Bedside Glucose (Misc Panel) 292 80-115 MG/DL Discharge Medications Scheduled Amlodipine Besylate (Amlodipine Besylate) 5 Mg Tablet, 5 MG PO DAILY Apixaban (Eliquis) 5 Mg Tablet, 5 MG PO BID Atorvastatin Calcium (Atorvastatin Calcium) 20 Mg Tablet, 40 MG PO QHS Docusate Sodium (Docusate Sodium) 100 Mg Capsule, 100 MG PO BID Insulin Glargine,Hum.rec.anlog (Lantus Solostar) 100 Unit/1 Ml Insuln.pen, 80 UNITS SC DAILY Insulin Human Regular (Humulin R) 100 Unit/1 Ml Vial, 18 UNITS SC TID Losartan Potassium (Cozaar) 50 Mg Tablet, 100 MG PO DAILY Pregabalin (Lyrica) 100 Mg Capsule, 100 MG PO DAILY Scheduled PRN Acetaminophen (Acetaminophen) 500 Mg Tablet, 1,000 MG PO Q6H PRN for PAIN, (Reported) Allergies Coded Allergies: aspirin (Verified Allergy, Intermediate, swelling, 11/22/18) ADOLFO CORDOVA MD May 23, 2020 09:13
[2020-05-23 09:46] VITALS: BP 162/82
[2020-05-23] MEDS ORDERED: ELIQ5TAB PO (12:30)
[2020-05-23] MEDS ORDERED: AMLO1TAB24 PO (12:30)
[2020-05-23] MEDS ORDERED: DOCU100C16 PO (12:30)
[2020-05-23] MEDS ORDERED: LANTINJ4 SC (12:30)
[2020-05-23] MEDS ORDERED: ATOR1TAB21 PO (12:30)
[2020-05-23] MEDS ORDERED: PREG100CA PO (12:30)
[2020-05-23] MEDS ORDERED: INSURSDRX SC ×2 (12:30→12:37)
[2020-05-23] MEDS ORDERED: COZA50TA PO (12:30)
[2020-05-23 14:00] VITALS: BP 160/81
--- NOTE | 2020-05-23 14:24 | CR ---
DATE OF CONSULTATION: 05/23/2020 REASON FOR CONSULTATION: Painful ingrowing nails. HISTORY OF PRESENT ILLNESS: Kvng Sun is a diabetic male, who was admitted on May 21 due to diabetic ketoacidosis. During his hospital stay, he was noted to have painful ingrowing toenails that are limiting his ambulation. I was asked for a consultation. PAST MEDICAL HISTORY: Includes diabetes, neuropathy, nephropathy, coronary artery disease; status post UT, dyslipidemia, atrial fibrillation, chronic systolic CHF, hypertension, COPD, anxiety, depression, history of DVT and pulmonary embolism, history of polysubstance abuse, constipation, gastritis, varicose veins, history of diabetic ketoacidosis, history of Hepatitis C. PAST SURGICAL HISTORY: Includes cataract removal and coronary catheterization. FAMILY HISTORY: Includes cardiac disease. SOCIAL HISTORY: Includes alcohol, tobacco approximately 50 pack year history. ALLERGIES: Aspirin. REVIEW OF SYSTEMS: Negative for nausea, vomiting, fever or chills. LOWER EXTREMITY EXAMINATION: Pedal pulses were equally palpable. There is edema of bilateral lower extremity with venous color changes. There are elongated dystrophic toenails with ingrowing borders and pain to palpation. ASSESSMENT: A 65-year-old diabetic male with neuropathy and painful ingrowing mycotic nails. TREATMENT: His toes were debrided. He should have follow-up with me in the outpatient setting. SANTOSH
[2020-05-23] MEDS ORDERED: PEN1MIS22 SC (15:49)
== END 2020-05-23 17:01 | disposition home or self-care (01) | DRG 638 ==
LOC: M ED 13:01 → M ED INP 16:27 → ENRESERV 16:50 → M ICU 17:32 → M MSPAV 05-22 12:15
PROVIDERS: ADMIT Family Medicine; ATTEND Family Medicine
DX: E11.10 Type 2 diabetes mellitus with ketoacidosis without coma (principal); I48.20 Chronic atrial fibrillation, unspecified; I13.0 Hypertensive heart and chronic kidney disease with heart failure and stage 1 through stage 4 chronic kidney disease, or unspecified chronic kidney disease; I50.22 Chronic systolic (congestive) heart failure; N17.9 Acute kidney failure, unspecified; E87.1 Hypo-osmolality and hyponatremia; I25.10 Atherosclerotic heart disease of native coronary artery without angina pectoris; N18.30 Chronic kidney disease, stage 3 unspecified; J44.9 Chronic obstructive pulmonary disease, unspecified; E11.40 Type 2 diabetes mellitus with diabetic neuropathy, unspecified; E11.65 Type 2 diabetes mellitus with hyperglycemia; E11.22 Type 2 diabetes mellitus with diabetic chronic kidney disease; E11.51 Type 2 diabetes mellitus with diabetic peripheral angiopathy without gangrene; F17.200 Nicotine dependence, unspecified, uncomplicated; T38.3X6A Underdosing of insulin and oral hypoglycemic [antidiabetic] drugs, initial encounter; I83.90 Asymptomatic varicose veins of unspecified lower extremity; F40.01 Agoraphobia with panic disorder; I25.2 Old myocardial infarction; T45.516A Underdosing of anticoagulants, initial encounter; Z79.01 Long term (current) use of anticoagulants; Z79.4 Long term (current) use of insulin; Z79.899 Other long term (current) drug therapy; Z88.6 Allergy status to analgesic agent; Z86.718 Personal history of other venous thrombosis and embolism; Z86.711 Personal history of pulmonary embolism; Z91.120 Patient's intentional underdosing of medication regimen due to financial hardship; F32.9 Major depressive disorder, single episode, unspecified; K59.00 Constipation, unspecified; Z98.41 Cataract extraction status, right eye; Z98.42 Cataract extraction status, left eye

== ENCOUNTER 2020-06-20 21:28 | Emergency (ER) | payer MEDICARE ==
[~2020-06-20] VITALS: Ht 180.3 cm; Wt 104.5 kg
[~2020-06-20 21:28] MED LIST changes: +ACET-683 PO; +AMLO1TAB24 PO; +ATOR1TAB21 PO; +COZA50TA PO; +DOCU100C16 PO; +INSURSDRX SC; +LANTINJ4 SC; +LOSA50TA88 PO; +PEN1MIS22 SC
[2020-06-20] MEDS ORDERED: NS 1,000 ML IV ONE (22:15)
[2020-06-20 22:31] LABS: HEMATOCRIT 40.1 % (42.0-52.0); HEMOGLOBIN 13.1 g/dl (13.5-17.5); MEAN CORPUSCULAR HEMOGLOBIN 30.3 pg (27.0-33.0); MEAN CORPUSCULAR HGB CONC 32.7 g/dl (32.0-36.5); MEAN CORPUSCULAR VOLUME 92.6 fl (80.0-96.0); PLATELET COUNT, AUTOMATED 244 10^3/uL (150-450); RED BLOOD COUNT 4.33 10^6/uL (4.30-6.10); WHITE BLOOD COUNT 7.2 10^3/uL (4.0-10.0)
[2020-06-20 23:06] LABS: CALCIUM LEVEL 8.2 MG/DL (8.8-10.2); CREATININE FOR GFR 2.15 MG/DL (0.70-1.30); GLOMERULAR FILTRATION RATE 32.8 (>49); POTASSIUM SERUM 5.3 MEQ/L (3.5-5.1)
[2020-06-20] MEDS ORDERED: HumuLIN R (REGULAR) INSULIN (NovoLIN R) **100U/ML** PER UNIT IV ONE (23:30)
[2020-06-21] MEDS ORDERED: HumuLIN R (REGULAR) INSULIN (NovoLIN R) **100U/ML** PER UNIT SC STA (00:54)
[2020-06-21] MEDS ORDERED: LANTINJ4 SC (02:33)
[2020-06-21] MEDS ORDERED: INSURSD SC (02:33)
[2020-06-21 02:42] VITALS: BP 150/72
--- NOTE | 2020-06-21 06:40 | ECGEPIP ---
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
[2020-06-23] MEDS ORDERED: DOK100TA PO (22:31)
== END 2020-06-21 02:44 | disposition home or self-care (01) ==
LOC: M ED 21:28
DX: E11.65 Type 2 diabetes mellitus with hyperglycemia (principal); I48.91 Unspecified atrial fibrillation; I13.0 Hypertensive heart and chronic kidney disease with heart failure and stage 1 through stage 4 chronic kidney disease, or unspecified chronic kidney disease; N18.30 Chronic kidney disease, stage 3 unspecified; I25.10 Atherosclerotic heart disease of native coronary artery without angina pectoris; I25.2 Old myocardial infarction; J44.9 Chronic obstructive pulmonary disease, unspecified; F19.11 Other psychoactive substance abuse, in remission; F17.200 Nicotine dependence, unspecified, uncomplicated; Z79.4 Long term (current) use of insulin; Z79.899 Other long term (current) drug therapy; Z79.01 Long term (current) use of anticoagulants; Z88.8 Allergy status to other drugs, medicaments and biological substances; Z86.19 Personal history of other infectious and parasitic diseases; Z86.718 Personal history of other venous thrombosis and embolism; Z86.711 Personal history of pulmonary embolism

== ENCOUNTER 2020-06-23 17:30 | Inpatient (IN) | payer MEDICARE ==
[~2020-06-23] VITALS: Ht 177.8 cm; Wt 101.2 kg
[~2020-06-23 17:30] MED LIST changes: +INSURSD SC
[2020-06-23 19:01] LABS: VENOUS BASE EXCESS -13.9 (-2.0-2.0); VENOUS O2 SATURATION 67.1 % (60.0-80.0); VENOUS PARTIAL PRESSURE CO2 39.5 mmHg (38.0-50.0); VENOUS PARTIAL PRESSURE O2 38.1 mmHg (30.0-50.0); VENOUS PH 7.168 UNITS (7.330-7.430); VENOUS STANDARD HCO3 13.5 MEQ/L; VENOUS TOTAL CO2 15.2 MEQ/L (24.0-28.0)
[2020-06-23 19:10] LABS: BASO # 0.1 10^3/uL (0.0-0.2); BASO % 0.9 % (0.0-1.0); EOS # 0.3 10^3/uL (0.0-0.5); EOS % 3.1 % (0.0-3.0); HEMOGLOBIN 14.5 g/dl (13.5-17.5); LYMPH # 2.1 10^3/uL (1.5-5.0); LYMPH % 22.8 % (24.0-44.0); MEAN CORPUSCULAR HEMOGLOBIN 30.9 pg (27.0-33.0); MEAN CORPUSCULAR HGB CONC 32.2 g/dl (32.0-36.5); MEAN CORPUSCULAR VOLUME 95.7 fl (80.0-96.0); MONO # 0.3 10^3/uL (0.0-0.8); MONO % 3.1 % (0.0-5.0); NEUTROPHILS # 6.6 10^3/uL (1.5-8.5); NEUTROPHILS % 69.9 % (36.0-66.0); PLATELET COUNT, AUTOMATED 294 10^3/uL (150-450); WHITE BLOOD COUNT 9.4 10^3/uL (4.0-10.0)
[2020-06-23 19:27] LABS: OSMOLALITY SERUM 332 MOSM/KG (280-301)
[2020-06-23 19:29] LABS: HEMOGLOBIN A1c 9.9 %
[2020-06-23] MEDS ORDERED: HumuLIN R (REGULAR) INSULIN (NovoLIN R) **100U/ML** PER UNIT IV ONE (19:30)
[2020-06-23] MEDS ORDERED: NS 1,000 ML IV ONE ×2 (19:30→21:45)
[2020-06-23] MEDS ORDERED: ONDANSETRON 4MG/2ML VIAL IV ONE (19:45)
[2020-06-23 19:48] LABS: ALBUMIN 3.4 GM/DL (3.2-5.2); ALT/SGPT 21 U/L (12-78); BILIRUBIN,DIRECT 0.2 MG/DL (0.0-0.2); BILIRUBIN,TOTAL 0.6 MG/DL (0.2-1.0); BLOOD UREA NITROGEN 39 MG/DL (7-18); CALCIUM LEVEL 9.4 MG/DL (8.8-10.2); CARBON DIOXIDE LEVEL 16 MEQ/L (21-32); CHLORIDE LEVEL 93 MEQ/L (98-107); CK-MB VALUE MASS 3.7 NG/ML (<3.6); CPK CREATINE PHOSPHOKINASE 105 U/L (39-308); GLOMERULAR FILTRATION RATE 37.8 (>49); LIPASE 29 U/L (73-393); MAGNESIUM LEVEL 2.1 MG/DL (1.8-2.4); MB/CK RELATIVE INDEX 3.52 (< OR =4); PHOSPHORUS LEVEL 5.1 MG/DL (2.5-4.9); POTASSIUM SERUM 5.2 MEQ/L (3.5-5.1); SODIUM LEVEL 132 MEQ/L (136-145); TOTAL PROTEIN 6.8 GM/DL (6.4-8.2); TROPONIN I < 0.02 NG/ML (< 0.10)
[2020-06-23 19:51] LABS: GLUCOSE, FASTING 540 MG/DL (70-100)
[2020-06-23 19:53] LABS: ACETONE/KETONE > 46.00 MG/DL (<2.81)
--- NOTE | 2020-06-23 20:47 | ECGEPIP ---
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
[2020-06-23] MEDS ORDERED: INSULIN REGULAR IN 0.9 % NACL 100 UNIT in IV 1 EA IV SCH ×4 (21:39→22:18)
[2020-06-23] MEDS ORDERED: INSULIN IV RATE CHANGE DOCUMENTATION ML/HR XX SCH ×2 (21:45→22:30)
[2020-06-23] MEDS ORDERED: KCL 20MEQ in NS 1000ML 1,000 ML IV SCH (22:30)
[2020-06-23] MEDS ORDERED: ONDANSETRON 4MG/2ML VIAL IV PRN (22:30)
[2020-06-23] MEDS ORDERED: PREG100CA PO (22:31)
[2020-06-23] MEDS ORDERED: LOSA50TA88 PO (22:31)
[2020-06-23] MEDS ORDERED: AMLO1TAB24 PO (22:31)
[2020-06-23] MEDS ORDERED: INSURSDRX SC (22:31)
[2020-06-23] MEDS ORDERED: LANTINJ4 SC (22:31)
[2020-06-23] MEDS ORDERED: DOK100TA2 PO (22:31)
[2020-06-23] MEDS ORDERED: ATOR40TA75 PO (22:31)
[2020-06-23] MEDS ORDERED: ELIQ5TAB PO (22:31)
--- NOTE | 2020-06-23 22:35 | HPEPDOC ---
General Date of Admission Jun 23, 2020 at 22:18 Date of Service: Jun 23, 2020 Chief Complaint The patient is a 65-year-old male admitted with a reason for visit of DKA. Source: Patient Exam Limitations: No limitations Timing/Duration: Day(s) Severity: Severe Associated Symptoms: Weakness History of Present Illness Patient is 65 years old male with past medical history of type 2 diabetes, coronary artery diseases, atrial fibrillation, systolic CHF presented to the hospital with weakness, polydipsia and polyuria. Patient stated that he ran out of his insulin because he didn't have money to pay for it. He didn't use insulin for 3 days. In ER patient was found to have no leukocytosis, glucose level of 540, creatinine 1.9, potassium 5.2, lactic acid 2.6. Blood gas showed pH of 7.1 with bicarbonate 14. Insulin drip started. Home Medications Scheduled Amlodipine Besylate (Amlodipine Besylate) 5 Mg Tablet, 5 MG PO DAILY, (Reported) Apixaban (Eliquis) 5 Mg Tablet, 5 MG PO BID, (Reported) Atorvastatin Calcium (Atorvastatin Calcium) 40 Mg Tablet, 40 MG PO QHS, ( Reported) Docusate Sodium (Dok) 100 Mg Tablet, 100 MG PO BID, (Reported) Insulin Glargine,Hum.rec.anlog (Lantus Solostar) 100 Unit/1 Ml Insuln.pen, 80 UNITS SC QPM, (Reported) Insulin Human Regular (Humulin R) 100 Unit/1 Ml Vial, 18 UNITS SC TID, (Reported) Losartan Potassium (Losartan Potassium) 50 Mg Tablet, 100 MG PO DAILY, (Reported) Pregabalin (Lyrica) 100 Mg Capsule, 100 MG PO DAILY, (Reported) Scheduled PRN Acetaminophen (Acetaminophen) 500 Mg Tablet, 1,000 MG PO Q6H PRN for PAIN, (Re ported) Allergies Coded Allergies: aspirin (Verified Allergy, Intermediate, swelling, 11/22/18) Past Medical History Medical History 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) CAD s/p [place] Dyslipidemia A fib with RVR Chronic systolic CHF HTN COPD tobacco use d/o anixety, panic d/o with agorphobia Depressive disorder Hx of DVT and PE hx of polysubstance abuse Constipation Gastritis Asymptomatic varicose veins Hx of DKA Hx of hep C, cured Surgical History B/l cataracts removal 2016 Heart cath more than 10 years ago Family History extensive cardiac hx Mother - [place] at 47 Father - [place], age unknown Social History * Smoker: current smoker Alcohol: occationally Drugs: denies A-FIB/CHADSVASC A-FIB History Current/History of A-Fib/PAF?: Yes Current PO Anticoag Therapy: Yes Review of Systems Constitutional: Reports: Malaise; Denies: Chills, Fever Eyes: Denies: Pain ENT: Denies: Head Aches Skin: Denies: Rash, Lesions Pulmonary: Denies: Dyspnea Cardiovascular: Denies: Chest Pain Gastrointestinal: Reports: Nausea Genitourinary: Denies: Incontinence Hematologic: Denies: Bruising Endocrine: Reports: Polydipsia, Polyphagia Musculoskeletal: Denies: Neck Pain Neurological: Denies: Weakness Psych: Reports: Mood Normal Physical Examination General Exam: Positive: Alert, Cooperative Eye Exam: Positive: PERRLA ENT Exam: Positive: Atraumatic Neck Exam: Positive: Supple Chest Exam: Positive: Clear to auscultation Heart Exam: Positive: Rate Normal Telemetry: Positive: No significant arrhythmia Abdomen Exam: Positive: Normal bowel sounds, BS Hypoactive, Soft Extremity Exam: Positive: Clubbing; Negative: Cyanosis Skin Exam: Positive: Nl turgor and temperature Neuro Exam: Positive: Strength at 5/5 X4 ext, Cranial Nerves 3-12 NL Psych Exam: Positive: Mental status NL Vital Signs Vital Signs Date Time Temp Pulse Resp B/P (MAP) Pulse Ox O2 Delivery O2 Flow Rate FiO2 06/23/20 22:15 98.2 107 20 179/86 (117) 98 Room Air Laboratory Data Labs 24H Laboratory Tests 2 06/23/20 18:53: Immature Granulocyte % (Auto) 0.2, Neutrophils (%) (Auto) 69.9H, Lymphocytes (%) (Auto) 22.8L, Monocytes (%) (Auto) 3.1, Eosinophils (%) (Auto) 3.1H, Basophils (%) (Auto) 0.9, Neutrophils # (Auto) 6.6, Lymphocytes # (Auto) 2.1, Monocytes # (Auto) 0.3, Eosinophils # (Auto) 0.3, Basophils # (Auto) 0.1, Nucleated Red Blood Cells % (auto) 0.0, Urine Color YELLOW, Urine Appearance CLEAR, Urine pH 5.0, Urine Specific Cash 1.021, Urine Protein 3+H, Urine Glucose (UA) 3+H, Urine Ketones 2+H, Urine Blood 1+H, Urine Nitrite NEGATIVE, Urine Bilirubin NEGATIVE, Urine Urobilinogen 0.2, Urine Leukocyte Esterase NEGATIVE, Urine WBC (Auto) 0, Urine RBC (Auto) 1, Urine Hyaline Casts (Auto) 0, Urine Bacteria (Auto) NEGATIVE, Urine Squamous Epithelial Cells 0, Urine Sperm (Auto) , Blood Gas Bicarbonate Standard 13.5, Venous Blood pH 7.168L, Venous Blood Partial Pressure CO2 39.5, Venous Blood Partial Pressure O2 38.1, Venous Blood Total Carbon Dioxide 15.2L, Venous Blood HCO3 14.0L, Venous Blood Oxygen Saturation 67.1, Venous Blood Base Excess -13.9L, Anion Gap 23H, Glomerular Filtration Rate 37.8L, Estimated Mean Plasma Glucose 237H, Hemoglobin A1c 9.9, Osmolality 332H, Lactic Acid Level 2.6*H, Calcium Level 9.4, Phosphorus Level 5.1H, Magnesium Level 2.1, Total Bilirubin 0.6, Direct Bilirubin 0.2, Aspartate Amino Transf (AST/SGOT) 11, Alanine Aminotransferase (ALT/SGPT) 21, Alkaline Phosphatase 56, Total Creatine Kinase 105, Creatine Kinase MB 3.7H, Creatine Kinase MB Relative Index 3.52, Troponin I < 0.02, Total Protein 6.8, Albumin 3.4, Albumin/Globulin Ratio 1.0, Lipase 29L, B-Hydroxybutyrate > 46.00H 06/23/20 21:08: Bedside Glucose (Misc Panel) 527*H CBC/BMP Laboratory Tests 06/23/20 18:53 Assessment/Plan Patient is 65 years old male with past medical history of type 2 diabetes, coronary artery diseases, atrial fibrillation, systolic CHF presented to the hospital with weakness, polydipsia and polyuria. Patient stated that he ran out of his insulin because he didn't have money to pay for it. He didn't use insulin for 3 days. In ER patient was found to have no leukocytosis, glucose level of 540, creatinine 1.9, potassium 5.2, lactic acid 2.6. Blood gas showed pH of 7.1 with bicarbonate 14. Insulin drip started. Problems (1) DKA (diabetic ketoacidoses) Status: Acute Problem Text: Secondary to noncompliance to insulin due to financial issue Insulin drip BMP every 4 hours IV fluid Telemetry Blood glucose level every hour (2) Diabetes type 2, uncontrolled Status: Chronic Problem Text: Continue insulin drip for now patient noncompliant insulin to the financial issue HbA1c 9.9 Nothing by mouth for now (3) Noncompliance Status: Acute Problem Text: See above (4) Afib Status: Chronic Problem Text: Heart rate is under control Continue oral targeted anticoagulation (5) HTN (hypertension) Status: Chronic Problem Text: Continue home cardioprotective medication (6) MABEL (acute kidney injury) Problem Text: Most likely secondary to dehydration due to DKA IV fluid Continue to monitor Plan / VTE VTE Prophylaxis Ordered?: Yes KANDY CASTILLO DO Jun 23, 2020 22:35
[2020-06-23] MEDS ORDERED: SODIUM BICARBONATE 8.4% INJ 50 ML SYRINGE IV STA (22:54)
[2020-06-23] MEDS ORDERED: amLODIPine 10 MG TAB PO ONE (23:00)
[2020-06-23] MEDS ORDERED: LISI10TA4 PO (23:02)
[2020-06-23] MEDS: APIXABAN 5 MG TAB (ELIQUIS) PO SCH (23:03)
[2020-06-24] VITALS (11 sets, daily range): BP systolic 115–155; BP diastolic 58–83
[2020-06-24] MEDS ORDERED: INSULIN REGULAR IN 0.9 % NACL 100 UNIT in IV 1 EA IV SCH ×2
[2020-06-24] MEDS: ATORVASTATIN 20 MG TAB PO SCH ×2 (01:06→20:36)
[2020-06-24] MEDS: INSULIN IV RATE CHANGE DOCUMENTATION ML/HR XX SCH ×3 (02:59→05:55)
[2020-06-24 05:09] LABS: VENOUS BASE EXCESS -1.6 (-2.0-2.0); VENOUS HCO3 23.4 MEQ/L (23.0-27.0); VENOUS O2 SATURATION 98.8 % (60.0-80.0); VENOUS PARTIAL PRESSURE CO2 40.6 mmHg (38.0-50.0); VENOUS PARTIAL PRESSURE O2 145.3 mmHg (30.0-50.0); VENOUS PH 7.378 UNITS (7.330-7.430); VENOUS STANDARD HCO3 23.1 MEQ/L; VENOUS TOTAL CO2 24.6 MEQ/L (24.0-28.0)
[2020-06-24 05:17] LABS: HEMATOCRIT 36.3 % (42.0-52.0); MEAN CORPUSCULAR HEMOGLOBIN 30.8 pg (27.0-33.0); MEAN CORPUSCULAR HGB CONC 33.9 g/dl (32.0-36.5); PLATELET COUNT, AUTOMATED 254 10^3/uL (150-450); RED BLOOD COUNT 3.99 10^6/uL (4.30-6.10); WHITE BLOOD COUNT 9.9 10^3/uL (4.0-10.0)
[2020-06-24 05:22] LABS: HEMOGLOBIN 12.3 g/dl (13.5-17.5)
[2020-06-24 05:36] LABS: ACETONE/KETONE 27.5 MG/DL (<2.81); ALBUMIN 2.7 GM/DL (3.2-5.2); BILIRUBIN,TOTAL 0.4 MG/DL (0.2-1.0); CALCIUM LEVEL 8.2 MG/DL (8.8-10.2); CREATININE FOR GFR 1.63 MG/DL (0.70-1.30); GLOMERULAR FILTRATION RATE 45.1 (>49); POTASSIUM SERUM 4.2 MEQ/L (3.5-5.1); TOTAL PROTEIN 5.5 GM/DL (6.4-8.2)
[2020-06-24] MEDS ORDERED: D5W/0.45% SODIUM CHLORIDE 500 ML IV SCH (06:00)
[2020-06-24] MEDS ORDERED: GLUCOSE 4GM CHEW TABLET PO PRN (07:45)
[2020-06-24] MEDS ORDERED: DEXTROSE 50% 50 ML SYRINGE IV PRN (07:45)
[2020-06-24] MEDS ORDERED: GLUCAGON INJ 1MG VIAL SC PRN (07:45)
[2020-06-24] MEDS: ACETAMINOPHEN TAB 650MG DOSE (2X325MG) PO PRN ×2 (08:11→20:36)
[2020-06-24] MEDS: NICOTINE 21MG/24HR 1 EA TRANSDERMAL TD SCH (08:12)
[2020-06-24] MEDS: amLODIPine 10 MG TAB PO SCH (08:12)
[2020-06-24] MEDS: APIXABAN 5 MG TAB (ELIQUIS) PO SCH ×2 (08:12→20:36)
[2020-06-24] MEDS: PREGABALIN 100 MG CAP (LYRICA) PO SCH (08:13)
[2020-06-24] MEDS ORDERED: ENOXAPARIN 40MG/0.4ML SYRINGE (J1650 PER 10MG) SC SCH (09:00)
[2020-06-24] MEDS ORDERED: LEVEMIR (INSULIN DETEMIR) 1 UNITS/0.01ML SC SCH (09:00)
[2020-06-24 10:17] LABS: VENOUS PH 7.401 UNITS (7.330-7.430)
[2020-06-24 10:18] LABS: VENOUS BASE EXCESS -0.4 (-2.0-2.0); VENOUS HCO3 24.3 MEQ/L (23.0-27.0); VENOUS O2 SATURATION 98.7 % (60.0-80.0); VENOUS PARTIAL PRESSURE CO2 40.1 mmHg (38.0-50.0); VENOUS PARTIAL PRESSURE O2 153.1 mmHg (30.0-50.0); VENOUS STANDARD HCO3 24.2 MEQ/L; VENOUS TOTAL CO2 25.6 MEQ/L (24.0-28.0)
[2020-06-24 11:00] LABS: CALCIUM LEVEL 8.4 MG/DL (8.8-10.2); CREATININE FOR GFR 1.72 MG/DL (0.70-1.30); GLOMERULAR FILTRATION RATE 42.4 (>49); POTASSIUM SERUM 4.3 MEQ/L (3.5-5.1)
--- NOTE | 2020-06-24 11:21 | IPNPDOC ---
Text Note Date of Service The patient was seen on 06/24/20. NOTE SUBJECTIVE: The patient is seen at bedside. He is sitting upright in bed, and eating breakfast. He reports he was very hungry, and had not eaten anything for the prior two days. He reports that he was unable to sleep the night in the hospital, but is in no pain. He reports that he had been a little dizzy at presentation, but the dizziness has resolved today. He also reports that he has no insulin at home, and will be unable to obtain insulin until at least Jun 26 or due to financial reasons. OBJECTIVE: VITALS: See below GENERAL: The patient is a cheerful man. NAD. HEENT: NC, AT, moist mucous membranes CV: RRR. S1 and S2 are noted. No S3 or S4 sounds are appreciated. No murmurs, gallops or rubs are appreciated. Radial pulses are equal. Capillary refill is <3s. LUNGS: There is some wheezing to auscultation in the upper lobes bilaterally. Otherwise, no rales or rhonchi are appreciated. Chest rise is symmetrical. ABDOMEN: Bowel sounds are heard in all four quadrants. Abdomen is soft, nondistended and nontender. EXTREMITIES: Moves all extremities well. There is trace edema in the L leg, no edema in the R leg. There is some dryness and flaking skin in both legs, L>R. Sensation is equal and bilateral in the legs. NEURO: No focal deficits noted. PSYCH: AAOx3. Normal mood/affect. ASSESSMENT/PLAN: The patient is a 65 yo male with a past medical history of type 2 diabetes, coronary artery diseases, atrial fibrillation, and systolic CHF who presented to the ED with weakness, polyuria and polydipsia, found to have elevated blood glucose and acidosis, concerning for DKA. He reports he had not taken his insulin in 3 days because he was unable to pay for it. 1. DKA -Secondary to noncompliance with insulin due to financial and access issues. -Blood glucose has lowered to 205 today, lactic acid reduced to 1.0, and VBG pH is up to 7.37. -Anion gap down from 23 to 8. Discontinue insulin drip and transition to subcutaneous insulin. -Diabetic diet. FSBS ACHS. Hypoglycemic protocol 2. DM T2 -Current Hgb A1C 9.9% -PFS consult to help with finding affordable insulin options 3. MABEL, ddx 2/2 dehydration from DKA -Patient has received a balanced 2.5L of fluid. Input of 2.8L and output of 300mL -Creatinine down from 1.9 to 1.63. -Discontinue IV fluids. -Hold nephrotoxic agents including home losartan and lisinopril. It is unclear why he is on both an ACEi and ARB, will discharge only on one of these medications if further BP control is required. We have increased his dose of Norvasc to help with BP control. -Continue to monitor creatinine 4. Afib -currently in sinus rhythm. -Continue home Eliquis 5. HTN -Current BP 130/58 -Continue Norvasc at increased dose. Hold lisinopril and losartan as noted above. 6. HLD -Continue home Atorvastatin DVT Prophylaxis: Patient is on full anticoagulation with Eliquis due to Afib. DISPOSITION: pending clinical improvement, stabilization of blood glucose levels VS,Fishbone, I+O VS, Fishbone, I+O Laboratory Tests 06/23/20 18:53 06/24/20 04:56 Vital Signs Date Time Temp Pulse Resp B/P (MAP) Pulse Ox O2 Delivery O2 Flow Rate FiO2 06/24/20 09:05 93 18 115/59 (77) 98 Room Air 06/24/20 08:00 98.3 I&O- Last 24 Hours up to 6 AM 06/24/20 06:00 Intake Total 2895 ml Output Total 375 ml Balance 2520 ml GME ATTESTATION GME ATTESTATION My faculty preceptor for this patient encounter was physically present during the encounter and was fully available. All aspects of the patient interview, examination, medical decision making process, and medical care plan development were reviewed and approved by the faculty preceptor. The faculty preceptor is aware and concurs with the plan as stated in the body of this note and will attest to such by his/her cosignature. TIO HILLIARD Jun 24, 2020 11:21 COURTNEY SANCHEZ D.O. Jun 24, 2020 15:29
[2020-06-24] MEDS: HumaLOG INSULIN (NovoLOG) PER UNIT SC SCH ×4 (11:47→23:57)
[2020-06-24 15:49] LABS: CALCIUM LEVEL 8.4 MG/DL (8.8-10.2); CREATININE FOR GFR 1.84 MG/DL (0.70-1.30); GLOMERULAR FILTRATION RATE 39.3 (>49); POTASSIUM SERUM 4.8 MEQ/L (3.5-5.1)
[2020-06-24] MEDS ORDERED: HumaLOG INSULIN (NovoLOG) PER UNIT SC STA (16:00)
[2020-06-24] MEDS: LEVEMIR (INSULIN DETEMIR) 1 UNITS/0.01ML SC SCH (20:35)
[2020-06-24] MEDS ORDERED: HumaLOG INSULIN (NovoLOG) PER UNIT SC SCH (21:00)
[2020-06-25] VITALS: BP 122/67
[2020-06-25 04:00] VITALS: BP 120/57
[2020-06-25] MEDS: HumaLOG INSULIN (NovoLOG) PER UNIT SC SCH (05:16)
[2020-06-25 05:48] LABS: HEMATOCRIT 36.8 % (42.0-52.0); HEMOGLOBIN 12.5 g/dl (13.5-17.5); MEAN CORPUSCULAR HEMOGLOBIN 31.2 pg (27.0-33.0); MEAN CORPUSCULAR VOLUME 91.8 fl (80.0-96.0); PLATELET COUNT, AUTOMATED 207 10^3/uL (150-450); RED BLOOD COUNT 4.01 10^6/uL (4.30-6.10); WHITE BLOOD COUNT 6.6 10^3/uL (4.0-10.0)
[2020-06-25 06:17] LABS: CALCIUM LEVEL 8.2 MG/DL (8.8-10.2); CREATININE FOR GFR 1.28 MG/DL (0.70-1.30); GLOMERULAR FILTRATION RATE 59.7 (>49); POTASSIUM SERUM 3.8 MEQ/L (3.5-5.1)
[2020-06-25] MEDS ORDERED: HumaLOG INSULIN (NovoLOG) PER UNIT SC SCH ×2 (07:30→21:00)
[2020-06-25 07:49] VITALS: BP 160/82
--- NOTE | 2020-06-25 09:06 | DS.PDOC ---
Discharge Summary General Date of Admission Jun 23, 2020 at 22:18 Date of Discharge Jun 25, 2020 Primary Care Physician: DANN FISCHER DO Attending Physician: ADELE LEDEZMA MD Discharge Summary PROCEDURES PERFORMED DURING STAY: None. ADMITTING DIAGNOSES: 1. DKA secondary to med noncompliance 2. T2DM. 3. A-fib 4. HTN DISCHARGE DIAGNOSES: 1. T2DM 2. A-fib 3. HTN COMPLICATIONS/CHIEF COMPLAINT: DKA. HISTORY OF PRESENT ILLNESS: The patient is a 65yo male with a past medical history of type 2 diabetes, coronary artery diseases, atrial fibrillation, systolic CHF. He presented to the ED on Jun 23, with weakness, polyuria and polydipsia. He has a history of Type 2 diabetes, and confesses that he had not taken his insulin for the previous three days because he had run out and was unable to afford or access more. In the ED, he was found to have a glucose level of 540, creatinine of 1.9, potassium of 5.2, lactic acid at 2.6. VBG showed pH of 7.1 with bicarbonate 14. WBC was normal. Hospitalist team was called for admission for management of DKA. HOSPITAL COURSE: Insulin drip and IV normal saline was started, and the patient was admitted to ICU. The patient was kept NPO at this time. Over the course of the day his venous blood pH improved to 7.37, and lactic acid reduced to 1. The following morning he was bridged off the insulin drip, and was transitioned to subcutaneous insulin with levemir insulin and sliding scale ACHS coverage with insulin lispro. He tolerated a consistent carb diet and IV fluids were discontinued. He did well over the course of the day, and his glucose continued to improve. The patient was counseled on programs and affordable access to insulin. He was discharged on Jun 25, feeling better. DISCHARGE MEDICATIONS: Please see below. ALLERGIES: Please see below. PHYSICAL EXAMINATION ON DISCHARGE: VITAL SIGNS: Please see below. GENERAL: Patient is a cheerful man, who appears his stated age. NAD. HEENT: NC/AT. Mucus membranes are moist. CARDIOVASCULAR EXAMINATION: RRR. S1 and S2 heart sounds are noted, without S3 or S4 sounds. No murmurs, gallops or rubs are appreciated. Radial pulses are equal and capillary refill <3s. RESPIRATORY EXAMINATION: Some wheezing is heard on the upper lobes b/l. There is no noted rales or rhonchi. Chest rise is symmetrical with inhalation ABDOMINAL EXAMINATION: Abdomen is soft, nondistended and nontender. Bowel sounds are heard in all four quadrants. EXTREMITIES: There is +1 pitting edema in the L leg, and trace edema in the R leg. This is increased from yesterday. There is some flaking dryness on the L leg. Sensation on the legs is equal bilaterally. Moves all extremities well. NEUROLOGICAL EXAMINATION: No focal deficits noted. PSYCHIATRIC EXAMINATION: AAOx3. Normal mood/affect. LABORATORY DATA: Please see below. IMAGING: None PROGNOSIS: Fair ACTIVITY: As tolerated. DIET: Diabetic Diet DISCHARGE PLAN: Discharge home DISCHARGE INSTRUCTIONS: 1. Follow-up with your PCP in 7-10 days 2. Please take all medications as prescribed 3. If your symptoms return or your condition worsens, please call your PCP or return to the ED for further evaluation. ITEMS TO FOLLOWUP ON ON OUTPATIENT: 1. None. DISCHARGE CONDITION: Stable. TIME SPENT ON DISCHARGE: Greater than 30 minutes. Vital Signs/I&Os Vital Signs Date Time Temp Pulse Resp B/P (MAP) Pulse Ox O2 Delivery O2 Flow Rate FiO2 06/25/20 07:49 98.6 83 18 160/82 (108) 94 Room Air I&O- Last 24 Hours up to 6 AM 06/25/20 06:00 Intake Total 1729 ml Output Total 500 ml Balance 1229 ml Laboratory Data Labs 24H Laboratory Tests 2 06/24/20 10:06: Blood Gas Bicarbonate Standard 24.2, Venous Blood pH 7.401, Venous Blood Partial Pressure CO2 40.1, Venous Blood Partial Pressure O2 153.1H, Venous Blood Total Carbon Dioxide 25.6, Venous Blood HCO3 24.3, Venous Blood Oxygen Saturation 98.7H, Venous Blood Base Excess -0.4, Anion Gap 7L, Glomerular Filtration Rate 42.4L, Calcium Level 8.4L, Phosphorus Level 2.0L 06/24/20 11:40: Bedside Glucose (Misc Panel) 467H 06/24/20 11:42: Bedside Glucose (Misc Panel) 440H 06/24/20 13:35: Bedside Glucose (Misc Panel) 478H 06/24/20 15:15: Anion Gap 9, Glomerular Filtration Rate 39.3L, Calcium Level 8.4L 06/24/20 17:38: Bedside Glucose (Misc Panel) 342H 06/24/20 19:56: Bedside Glucose (Misc Panel) 238H 06/24/20 23:19: Bedside Glucose (Misc Panel) 205H 06/25/20 04:12: Bedside Glucose (Misc Panel) 149H 06/25/20 05:19: Nucleated Red Blood Cells % (auto) 0.0, Anion Gap 6L, Glomerular Filtration Rate 59.7, Calcium Level 8.2L CBC/BMP Laboratory Tests 06/24/20 10:06 06/24/20 15:15 06/25/20 05:19 FSBS Laboratory Tests Test 06/24/20 11:40 06/24/20 11:42 06/24/20 13:35 06/24/20 17:38 Range/Units Bedside Glucose (Misc Panel) 467 440 478 342 80-115 MG/DL Test 06/24/20 19:56 06/24/20 23:19 06/25/20 04:12 Range/Units Bedside Glucose (Misc Panel) 238 205 149 80-115 MG/DL Discharge Medications Scheduled Amlodipine Besylate (Amlodipine Besylate) 5 Mg Tablet, 5 MG PO DAILY, (Reported) Apixaban (Eliquis) 5 Mg Tablet, 5 MG PO BID, (Reported) Atorvastatin Calcium (Atorvastatin Calcium) 40 Mg Tablet, 40 MG PO DAILY, (Reported) Docusate Sodium (Dok) 100 Mg Tablet, 100 MG PO BID, (Reported) Insulin Glargine,Hum.rec.anlog (Lantus Solostar) 100 Unit/1 Ml Insuln.pen, 80 UNITS SC DAILY, (Reported) Insulin Human Regular (Humulin R) 100 Unit/1 Ml Vial, 18 UNITS SC TID, (Reported) Losartan Potassium (Losartan Potassium) 50 Mg Tablet, 50 MG PO BID, (Reported) Pregabalin (Lyrica) 100 Mg Capsule, 100 MG PO DAILY, (Reported) PATIENT S/O STATES SUPPOSED TO TAKE TID Scheduled PRN Acetaminophen (Acetaminophen) 500 Mg Tablet, 1,000 MG PO Q6H PRN for PAIN, (Reported) Allergies Coded Allergies: aspirin (Verified Allergy, Intermediate, swelling, 11/22/18) GME ATTESTATION GME ATTESTATION My faculty preceptor for this patient encounter was physically present during the encounter and was fully available. All aspects of the patient interview, examination, medical decision making process, and medical care plan development were reviewed and approved by the faculty preceptor. The faculty preceptor is aware and concurs with the plan as stated in the body of this note and will attest to such by his/her cosignature. TIO HILLIARD Jun 25, 2020 09:06 COURTNEY SANCHEZ D.O. Jun 25, 2020 16:12
[2020-06-25] MEDS: NICOTINE 21MG/24HR 1 EA TRANSDERMAL TD SCH (09:42)
[2020-06-25] MEDS: PREGABALIN 100 MG CAP (LYRICA) PO SCH (09:43)
[2020-06-25] MEDS: APIXABAN 5 MG TAB (ELIQUIS) PO SCH (09:43)
[2020-06-25] MEDS: LEVEMIR (INSULIN DETEMIR) 1 UNITS/0.01ML SC SCH (09:43)
[2020-06-25 09:44] VITALS: BP 160/82
[2020-06-25] MEDS: amLODIPine 10 MG TAB PO SCH (09:44)
== END 2020-06-25 12:45 | disposition home or self-care (01) | DRG 638 ==
LOC: M ED 17:30 → M ED INP 22:18 → ENRESERV 23:39 → M ICU 06-24 00:24 → M PCU 06-24 19:27
PROVIDERS: ADMIT Internal Medicine; ATTEND Internal Medicine
DX: E11.10 Type 2 diabetes mellitus with ketoacidosis without coma (principal); I13.0 Hypertensive heart and chronic kidney disease with heart failure and stage 1 through stage 4 chronic kidney disease, or unspecified chronic kidney disease; I50.22 Chronic systolic (congestive) heart failure; I48.20 Chronic atrial fibrillation, unspecified; N17.9 Acute kidney failure, unspecified; N18.30 Chronic kidney disease, stage 3 unspecified; I25.10 Atherosclerotic heart disease of native coronary artery without angina pectoris; I25.2 Old myocardial infarction; E11.65 Type 2 diabetes mellitus with hyperglycemia; J44.9 Chronic obstructive pulmonary disease, unspecified; E11.22 Type 2 diabetes mellitus with diabetic chronic kidney disease; F17.200 Nicotine dependence, unspecified, uncomplicated; E78.5 Hyperlipidemia, unspecified; E86.0 Dehydration; F40.01 Agoraphobia with panic disorder; T38.3X6A Underdosing of insulin and oral hypoglycemic [antidiabetic] drugs, initial encounter; F32.9 Major depressive disorder, single episode, unspecified; I83.90 Asymptomatic varicose veins of unspecified lower extremity; Z98.41 Cataract extraction status, right eye; Z98.42 Cataract extraction status, left eye; Z91.120 Patient's intentional underdosing of medication regimen due to financial hardship; Z79.4 Long term (current) use of insulin; Z79.899 Other long term (current) drug therapy; Z79.01 Long term (current) use of anticoagulants; Z88.6 Allergy status to analgesic agent; Z86.718 Personal history of other venous thrombosis and embolism; Z86.711 Personal history of pulmonary embolism; Z20.828 Contact with and (suspected) exposure to other viral communicable diseases

== ENCOUNTER → 2020-07-18 | Outpatient (REF) | payer MEDICARE ==
[~2020-07-18] MED LIST changes: +DOK100TA2 PO; +LISI10TA4 PO
[2020-07-18 14:59] LABS: MAU/CREAT RATIO 3015.2 MCG/MG (0.0-30.0)
== END ==
LOC: M SFHCPLAZ 13:00
PROVIDERS: ATTEND Student in an Organized Health Care Education/Training Program
DX: E11.21 Type 2 diabetes mellitus with diabetic nephropathy (principal)

== ENCOUNTER 2020-08-03 19:42 | Inpatient (IN) | payer MEDICARE ==
[~2020-08-03] VITALS: Ht 180.3 cm; Wt 101.7 kg
[2020-08-03] MEDS ORDERED: methylPREDNISolone 125MG 2ML VIAL IV ONE (20:30)
[2020-08-03] MEDS ORDERED: ACETAMINOPHEN TAB 650MG DOSE (2X325MG) PO ONE (20:30)
[2020-08-03] MEDS ORDERED: COMBIVENT RESPIMAT 100-20MCG INHALER 4GM INH ONE (20:30)
--- NOTE | 2020-08-03 20:55 | REPVR ---
PROCEDURE INFORMATION: Exam: XR Chest, 1 View Exam date and time: 08/03/2020 8:42 PM Age: 65 years old Clinical indication: Chest pain TECHNIQUE: Imaging protocol: XR of the chest Views: 1 view. COMPARISON: CR PORTABLE CHEST X-RAY 11/22/2018 10:22 PM FINDINGS: Lungs: Bilateral pulmonary infiltrates, right greater than left. Findings have progressed in comparison to the prior study of 11/22/2018. Possibility of multifocal pneumonitis to be considered. Pleural space: Unremarkable. No pleural effusion. No pneumothorax. Heart/Mediastinum: Heart appears enlarged on the AP view. Bones/joints: Unremarkable. IMPRESSION: Bilateral pulmonary infiltrates, right greater than left. Findings have progressed in comparison to the prior study of 11/22/2018. Possibility of multifocal pneumonitis to be considered. Electronically signed by: Wallace Covington On 08/03/2020 20:55:39 PM
[2020-08-03 21:36] LABS: BASO % 0.4 % (0.0-1.0); EOS % 0.4 % (0.0-3.0); HEMOGLOBIN 13.6 g/dl (13.5-17.5); LYMPH # 1.6 10^3/uL (1.5-5.0); LYMPH % 27.5 % (24.0-44.0); MEAN CORPUSCULAR HEMOGLOBIN 29.8 pg (27.0-33.0); MEAN CORPUSCULAR HGB CONC 31.6 g/dl (32.0-36.5); MEAN CORPUSCULAR VOLUME 94.3 fl (80.0-96.0); MONO # 0.5 10^3/uL (0.0-0.8); MONO % 9.2 % (0.0-5.0); NEUTROPHILS # 3.5 10^3/uL (1.5-8.5); NEUTROPHILS % 62.3 % (36.0-66.0); PLATELET COUNT, AUTOMATED 200 10^3/uL (150-450); RED BLOOD COUNT 4.56 10^6/uL (4.30-6.10); WHITE BLOOD COUNT 5.6 10^3/uL (4.0-10.0)
[2020-08-03 21:47] LABS: INR 0.95; PROTHROMBIN TIME 12.9 SECONDS (12.5-14.3)
[2020-08-03 21:48] LABS: PARTIAL THROMBOPLASTIN TIME 29.7 SECONDS (24.2-38.5)
[2020-08-03 22:22] LABS: ALBUMIN 2.6 GM/DL (3.2-5.2); ALT/SGPT 27 U/L (12-78); BILIRUBIN,DIRECT < 0.1 MG/DL (0.0-0.2); BILIRUBIN,TOTAL 0.3 MG/DL (0.2-1.0); BLOOD UREA NITROGEN 18 MG/DL (7-18); CALCIUM LEVEL 7.7 MG/DL (8.8-10.2); CARBON DIOXIDE LEVEL 29 MEQ/L (21-32); CHLORIDE LEVEL 103 MEQ/L (98-107); CK-MB VALUE MASS 1.4 NG/ML (<3.6); CPK CREATINE PHOSPHOKINASE 192 U/L (39-308); FREE T4 0.98 NG/DL (0.76-1.46); GLOMERULAR FILTRATION RATE 58.6 (>49); GLUCOSE, FASTING 33 MG/DL (70-100); MB/CK RELATIVE INDEX 0.73 (< OR =4); NT-PRO BNP 221 PG/ML (<125); POTASSIUM SERUM 3.6 MEQ/L (3.5-5.1); SODIUM LEVEL 139 MEQ/L (136-145); TOTAL PROTEIN 5.9 GM/DL (6.4-8.2); TROPONIN I < 0.02 NG/ML (< 0.10)
[2020-08-03] MEDS ORDERED: DEXTROSE 50% 50 ML SYRINGE IV STA (22:24)
[2020-08-03] MEDS ORDERED: IPRATROPIUM 0.5MG/ALBUTEROL 2.5MG INH SOL UD 3ML (DUONEB) NEB ONE (23:15)
[2020-08-04] MEDS ORDERED: PIPERACILLIN/TAZOBACTAM SOD 4.5 GM in D5W MINI-BAG PLUS 50 ML IV ONE (01:00)
[2020-08-04] MEDS ORDERED: VANCOMYCIN HCL 1,000 MG, VIAL MATE ADAPTER 1 EACH in D5W 250 ML IV ONE ×2 (02:00→04:00)
--- NOTE | 2020-08-04 02:14 | HPEPDOC ---
[facility] Medical History & Physical Date of Admission Aug 04, 2020 Date of Service: Aug 04, 2020 History and Physical CHIEF COMPLAINT: shortness of breath, weakness HISTORY OF PRESENT ILLNESS: 65-year-old male with a history of IDDM, CAD/A. fib with RVR/chronic systolic CHF/hypertension/COPD, recently admitted for the [facility] returns to the ED with progressively worsening shortness of breath for the past 3 days along with weakness subjective fevers and chills and a productive cough. Patient denies chest pain, palpitations, abdominal pain, blood in the stool, nausea, vomiting or diarrhea. Temp 100.3. Pulse 94, respiratory 20, blood pressure 133/66, pulse ox 88% on room air. PH 7.54. Base excess 6. PO2 73. CO2 33.9, bicarbonate 20.9. Blood glucose 33. BNP 221. Troponin negative. Cr 1.3. BUN 18. CXR showing bilateral pulmonary infiltrates, R > L. 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 REVIEW OF SYSTEMS: 10 point ROS completed, as per HPI. HOME MEDICATIONS: Please see below. PHYSICAL EXAMINATION: VITAL SIGNS: please see below General: NAD, comfortable HEENT: PERRLA, EOMI, sclerae clear Neck: supple, normal ROM, no JVD Respiratory: mild rales on R, otherwise CTAB, no wheeze CVS: RRR, normal S1, S2, no murmurs Abdo: soft, no masses, no hepatosplenomegaly, BS+, no rebound tenderness Extremities: no edema, unable to palpate pulses, dry, cracked skin on bilateral lower extremities above the ankles, chronic venous stasis changes. No ulcerations. No signs of cellulitis. MSK: no joint deformities, normal ROM Neuro: no focal neuro deficits, moving all 4 extremities, CN2-12 intact. Strength 5/5 in all 4 extremities. No nystagmus. Psych: calm, cooperative, AAO x 3 LABORATORY DATA: See below. IMAGING: CXR (08/03/20): Bilateral pulmonary infiltrates, right greater than left. Findings have progressed in comparison to the prior study of 11/22/2018. Possibility of multifocal pneumonitis to be considered. MICROBIOLOGY: Please see below. ASSESSMENT: S: 65-year-old male with a history of IDDM, CAD/A. fib with RVR/chronic systolic CHF/hypertension/COPD presenting with hypoxia likely 2/2 bacterial pneumonia. Given recent hospitalization, and clinical findings, I am not convinced of the negative covid result. Will keep patient on droplet precautions, repeat covid in 24 hours. PLAN: #Acute hypoxic hypercarbic respiratory failure likely 2/2 pneumonia: supplemental O2 via NC. Check proca. Sputum cultures. Blood cultures. will c ontinue abx at this time. Vanc. Cefepime.. MRSA screen. Repeat covid-19 test in 24 hours. Maintain droplet precaution. #fever: possibvle pna on CXr. Check UA, cx. Blood cx sent. #IDDM: Insulin sliding scale. FSBS AC and HS. Consistent carbohydrate diet. Hypoglycemic precautions. A1c 9.9. Has frequent admissions for DKA, has difficulties paying for insulin. #Chronic atrial fibrillation: AC Eliquis. Metoprolol. #CAD: allergic to ASA. lipitor 40 mg PO qhs. #HTN: continue home meds. Amlodipine. #CKD3: Avoid nephrotoxins. #Hx DVT: eliquis, patient ran out 2 weeks ago, resume. psychologist social to assist with payment #COPD: duonebs prn. Advair. #Neuropathy: pregabalin #Smoker: smoking cessation teaching done. Nicotine patch. #GI ppx: protonix IV daily. DVT ppx: eliquis Code status: Full Code, per patient. Vital Signs Vital Signs Date Time Temp Pulse Resp B/P (MAP) Pulse Ox O2 Delivery O2 Flow Rate FiO2 08/04/20 00:30 79 96 08/04/20 00:24 148/63 (91) 08/03/20 19:47 100.3 20 Room Air Laboratory Data Labs 24H Laboratory Tests 2 08/03/20 21:20: Immature Granulocyte % (Auto) 0.2, Neutrophils (%) (Auto) 62.3, Lymphocytes (%) (Auto) 27.5, Monocytes (%) (Auto) 9.2H, Eosinophils (%) (Auto) 0.4, Basophils (%) (Auto) 0.4, Neutrophils # (Auto) 3.5, Lymphocytes # (Auto) 1.6, Monocytes # (Auto) 0.5, Eosinophils # (Auto) 0.0, Basophils # (Auto) 0.0, Nucleated Red Blood Cells % (auto) 0.0, Prothrombin Time 12.9, Prothromb Time International Ratio 0.95, Activated Partial Thromboplast Time 29.7, Anion Gap 7L, Glomerular Filtration Rate 58.6, Calcium Level 7.7L, Total Bilirubin 0.3, Direct Bilirubin < 0.1, Aspartate Amino Transf (AST/SGOT) 46H, Alanine Aminotransferase (ALT/SGPT) 27, Alkaline Phosphatase 35L, Total Creatine Kinase 192, Creatine Kinase MB 1.4, Creatine Kinase MB Relative Index 0.73, Troponin I < 0.02, DD-Pjr-M-Type Natriuretic Peptide 221H, Total Protein 5.9L, Albumin 2.6L, Albumin/Globulin Ratio 0.8, Thyroid Stimulating Hormone (TSH) 2.290, Free Thyroxine 0.98 08/03/20 22:42: POC pH (Misc Panel) 7.539H, POC Base Excess (Misc Panel) 6.0H, POC Saturated Percent O2 (Misc) 96, POC pO2 (Misc Panel) 73.0L, POC pCO2 (Misc Panel) 33.9L, POC HCO3 (Misc Panel) 28.9H, POC Total CO2 (Misc Panel) 30.0H 08/04/20 00:16: Bedside Glucose (Misc Panel) 66L 08/04/20 01:45: Bedside Glucose (Misc Panel) 117H CBC/BMP Laboratory Tests 08/03/20 21:20 Microbiology Microbiology 08/03/20 Respiratory Virus Panel (PCR) (MEGA) - Final, Complete 08/03/20 Blood Culture, Received Pending Home Medications Scheduled Amlodipine Besylate (Amlodipine Besylate) 5 Mg Tablet, 5 MG PO DAILY Apixaban (Eliquis) 5 Mg Tablet, 5 MG PO BID Atorvastatin Calcium (Atorvastatin Calcium) 40 Mg Tablet, 40 MG PO DAILY Docusate Sodium (Dok) 100 Mg Tablet, 100 MG PO BID Insulin Glargine,Hum.rec.anlog (Lantus Solostar) 100 Unit/1 Ml Insuln.pen, 85 UNITS SC DAILY Insulin Human Regular (Humulin R) 100 Unit/1 Ml Vial, 18 UNITS SC TID Losartan Potassium (Losartan Potassium) 50 Mg Tablet, 50 MG PO DAILY Pregabalin (Lyrica) 100 Mg Capsule, 100 MG PO DAILY PATIENT S/O STATES SUPPOSED TO TAKE TID Scheduled PRN Acetaminophen (Acetaminophen) 500 Mg Tablet, 1,000 MG PO Q6H PRN for PAIN Allergies Coded Allergies: aspirin (Verified Allergy, Intermediate, swelling, 11/22/18) A-FIB/CHADSVASC A-FIB History Current/History of A-Fib/PAF?: Yes Current PO Anticoag Therapy: Yes ADOLFO CORDOVA MD Aug 04, 2020 02:14
[2020-08-04] MEDS ORDERED: MAALOX 30 ML SUSP *UDC PO PRN (02:30)
[2020-08-04] MEDS ORDERED: MOM 30ML SUSPENSION UDC PO PRN (02:30)
[2020-08-04] MEDS ORDERED: DEXTROSE 50% 50 ML SYRINGE IV PRN (02:45)
[2020-08-04] MEDS ORDERED: GLUCAGON INJ 1MG VIAL SC PRN (02:45)
[2020-08-04] MEDS ORDERED: GLUCOSE 4GM CHEW TABLET PO PRN (02:45)
[2020-08-04] MEDS ORDERED: PIPERACILLIN/TAZOBACTAM SOD 4.5 GM in D5W MINI-BAG PLUS 50 ML IV SCH (03:30)
[2020-08-04] MEDS ORDERED: METAL LOCK LOOP XX ONE (03:57)
[2020-08-04 05:30] VITALS: BP 141/81
--- NOTE | 2020-08-04 06:35 | ECGEPIP ---
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
[2020-08-04 06:49] LABS: BASO % 0.3 % (0.0-1.0); HEMATOCRIT 39.4 % (42.0-52.0); HEMOGLOBIN 12.4 g/dl (13.5-17.5); LYMPH # 0.5 10^3/uL (1.5-5.0); LYMPH % 15.9 % (24.0-44.0); MEAN CORPUSCULAR HEMOGLOBIN 29.6 pg (27.0-33.0); MEAN CORPUSCULAR HGB CONC 31.5 g/dl (32.0-36.5); MONO # 0.1 10^3/uL (0.0-0.8); NEUTROPHILS # 2.4 10^3/uL (1.5-8.5); NEUTROPHILS % 80.5 % (36.0-66.0); PLATELET COUNT, AUTOMATED 181 10^3/uL (150-450); RED BLOOD COUNT 4.19 10^6/uL (4.30-6.10)
[2020-08-04 07:15] LABS: ALBUMIN 2.2 GM/DL (3.2-5.2); BILIRUBIN,TOTAL 0.3 MG/DL (0.2-1.0); CALCIUM LEVEL 7.5 MG/DL (8.8-10.2); CREATININE FOR GFR 1.35 MG/DL (0.70-1.30); GLOMERULAR FILTRATION RATE 56.1 (>49); MAGNESIUM LEVEL 1.9 MG/DL (1.8-2.4); POTASSIUM SERUM 4.5 MEQ/L (3.5-5.1); TOTAL PROTEIN 5.4 GM/DL (6.4-8.2)
[2020-08-04 07:23] LABS: INR 1.01; PROTHROMBIN TIME 13.5 SECONDS (12.5-14.3)
[2020-08-04] MEDS: CEFEPIME HCL 2 GM in D5W MINI-BAG PLUS 50 ML IV SCH ×3 (07:24→21:41)
[2020-08-04 07:26] LABS: D-DIMER QUANT 1695.97 ng/ml (<500)
[2020-08-04 08:02] LABS: ALT/SGPT 25 IU/L (0-32); BILIRUBIN,DIRECT < 0.1 MG/DL (0.0-0.2); BILIRUBIN,TOTAL 0.3 MG/DL (0.2-1.0); CPK CREATINE PHOSPHOKINASE 211 U/L (39-308); LDH LACTATE DEHYDROGENASE 485 U/L (87-241)
[2020-08-04 08:03] LABS: ALBUMIN 2.2 GM/DL (3.2-5.2); C REACTIVE PROTEIN QUANTITATIV 5.32 MG/DL (0.00-0.30); FERRITIN 634 NG/ML (26-388); TOTAL PROTEIN 5.9 GM/DL (6.4-8.2); TROPONIN I < 0.02 NG/ML (< 0.10)
[2020-08-04] MEDS: LEVEMIR (INSULIN DETEMIR) 1 UNITS/0.01ML SC SCH (08:36)
[2020-08-04] MEDS: HumaLOG INSULIN (NovoLOG) PER UNIT SC SCH ×4 (08:36→21:00)
[2020-08-04] MEDS: DOCUSATE SODIUM 100MG CAPSULE PO SCH ×2 (08:37→21:41)
[2020-08-04] MEDS: ATORVASTATIN 20 MG TAB PO SCH (08:37)
[2020-08-04] MEDS: HumuLIN R (REGULAR) INSULIN (NovoLIN R) **100U/ML** PER UNIT SC SCH ×3 (08:37→21:40)
[2020-08-04] MEDS: PREGABALIN 100 MG CAP (LYRICA) PO SCH (08:37)
[2020-08-04] MEDS: amLODIPine 5 MG TAB PO SCH (08:38)
[2020-08-04] MEDS: APIXABAN 5 MG TAB (ELIQUIS) PO SCH ×2 (08:38→21:41)
[2020-08-04] MEDS: LOSARTAN 50MG TABLET PO SCH (08:38)
[2020-08-04] MEDS ORDERED: ENOXAPARIN 40MG/0.4ML SYRINGE (J1650 PER 10MG) SC SCH (09:00)
[2020-08-04] MEDS: NICOTINE 21MG/24HR 1 EA TRANSDERMAL TD PRN (12:26)
[2020-08-04 14:00] VITALS: BP 122/60
[2020-08-04] MEDS: VANCOMYCIN HCL 1,000 MG, VIAL MATE ADAPTER 1 EACH in D5W 250 ML IV SCH (15:22)
[2020-08-04] MEDS: ACETAMINOPHEN TAB 650MG DOSE (2X325MG) PO PRN (18:21)
[2020-08-04 22:00] VITALS: BP 131/63
[2020-08-05] VITALS (8 sets, daily range): BP systolic 110–160; BP diastolic 54–70; O2SAT 94–95
[2020-08-05] MEDS: VANCOMYCIN HCL 1,000 MG, VIAL MATE ADAPTER 1 EACH in D5W 250 ML IV SCH ×2 (03:17→15:36)
[2020-08-05] MEDS: CEFEPIME HCL 2 GM in D5W MINI-BAG PLUS 50 ML IV SCH ×3 (05:45→23:02)
[2020-08-05 06:27] LABS: BASO % 0.2 % (0.0-1.0); EOS # 0.1 10^3/uL (0.0-0.5); EOS % 0.6 % (0.0-3.0); HEMATOCRIT 41.6 % (42.0-52.0); HEMOGLOBIN 13.4 g/dl (13.5-17.5); LYMPH % 20.9 % (24.0-44.0); MEAN CORPUSCULAR HEMOGLOBIN 30.2 pg (27.0-33.0); MEAN CORPUSCULAR HGB CONC 32.2 g/dl (32.0-36.5); MEAN CORPUSCULAR VOLUME 93.7 fl (80.0-96.0); MONO # 0.3 10^3/uL (0.0-0.8); MONO % 3.6 % (0.0-5.0); NEUTROPHILS # 7.1 10^3/uL (1.5-8.5); NEUTROPHILS % 74.4 % (36.0-66.0); PLATELET COUNT, AUTOMATED 254 10^3/uL (150-450); RED BLOOD COUNT 4.44 10^6/uL (4.30-6.10); WHITE BLOOD COUNT 9.5 10^3/uL (4.0-10.0)
[2020-08-05] MEDS ORDERED: COMBIVENT RESPIMAT 100-20MCG INHALER 4GM INH PRN (06:30)
[2020-08-05] MEDS ORDERED: IPRATROPIUM 0.5MG/ALBUTEROL 2.5MG INH SOL UD 3ML (DUONEB) NEB ONE (06:30)
[2020-08-05 06:46] LABS: CALCIUM LEVEL 8.5 MG/DL (8.8-10.2); CREATININE FOR GFR 1.47 MG/DL (0.70-1.30); GLOMERULAR FILTRATION RATE 50.9 (>49); POTASSIUM SERUM 3.8 MEQ/L (3.5-5.1)
[2020-08-05] MEDS: HumaLOG INSULIN (NovoLOG) PER UNIT SC SCH ×4 (07:30→21:00)
[2020-08-05 07:56] LABS: ABG BASE EXCESS 4.1 (-2.0-2.0); ABG HCO3 28.2 MEQ/L (22.0-26.0); ABG O2 SATURATION 95.3 % (95.0-99.0); ABG PARTIAL PRESSURE CO2 40.4 mmHg (35.0-45.0); ABG PARTIAL PRESSURE O2 73.7 mmHg (75.0-100.0); ABG TOTAL CO2 29.4 MEQ/L (23.0-31.0); ABG pH (ARTERIAL) 7.461 UNITS (7.350-7.450)
--- NOTE | 2020-08-05 07:59 | REP ---
INDICATION: hypoxia COMPARISON: 08/03/2020 TECHNIQUE: Portable AP view of the chest FINDINGS: Chronic emphysematous disease and subpleural fibrosis is again appreciated with suspected superimposed areas of airspace disease similar to recent prior examination. No obvious new consolidation, effusion, or pneumothorax. Mediastinum and cardiac silhouette are stable skeletal structures intact. IMPRESSION: Moderate bilateral airspace disease with underlying chronic emphysematous and fibrotic changes. Findings are relatively stable compared to recent prior examination. <Electronically signed by Brian Tate > 08/05/20 [id number]
[2020-08-05] MEDS: dexameTHASONE 4 MG/ML 1ML VIAL (J1100 PER 1MG) IV SCH (08:39)
[2020-08-05] MEDS: LEVEMIR (INSULIN DETEMIR) 1 UNITS/0.01ML SC SCH (09:00)
[2020-08-05] MEDS: HumuLIN R (REGULAR) INSULIN (NovoLIN R) **100U/ML** PER UNIT SC SCH ×3 (09:00→23:03)
[2020-08-05 09:07] LABS: C REACTIVE PROTEIN QUANTITATIV 3.02 MG/DL (0.00-0.30)
[2020-08-05 09:17] LABS: D-DIMER QUANT 1934.9 ng/ml (<500)
[2020-08-05] MEDS: ATORVASTATIN 20 MG TAB PO SCH (11:10)
[2020-08-05] MEDS: LOSARTAN 50MG TABLET PO SCH (11:10)
[2020-08-05] MEDS: PREGABALIN 100 MG CAP (LYRICA) PO SCH (11:10)
[2020-08-05] MEDS: amLODIPine 5 MG TAB PO SCH (11:11)
[2020-08-05] MEDS: APIXABAN 5 MG TAB (ELIQUIS) PO SCH ×2 (11:11→21:37)
--- NOTE | 2020-08-05 14:23 | REP ---
INDICATION: R/o DVT COMPARISON: None. TECHNIQUE: [place] scale and color Doppler evaluation bilateral lower extremities using linear high frequency transducer. FINDINGS: Right lower extremity is normal and without evidence for deep venous thrombosis. Left lower extremity demonstrates occlusive thrombus in the mid to distal superficial femoral vein followed by nonocclusive thrombus in the proximal superficial femoral vein and popliteal vein. IMPRESSION: Left lower extremity deep venous thrombosis <Electronically signed by Brian Tate > 08/05/20 [id number]
[2020-08-05] MEDS: PANTOPRAZOLE 20 MG TAB PO SCH (14:42)
[2020-08-05] MEDS: NICOTINE 21MG/24HR 1 EA TRANSDERMAL TD PRN (14:43)
--- NOTE | 2020-08-05 17:06 | CR ---
PULMONARY/CRITICAL CARE CONSULTATION DATE: 08/05/2020 REASON FOR CONSULTATION: Acute hypoxemic respiratory failure. REQUESTING PHYSICIAN: Dr. Fisher CONSULTING PHYSICIAN: Dr. Adam Elizabeth HISTORY OF PRESENT ILLNESS: Mr. Sun is a 65-year-old male with a past medical history significant for insulin dependent diabetes mellitus with multiple hospitalizations for DKA, coronary artery disease with stent placement, atrial fibrillation, chronic systolic CHF, hypertension, COPD and a history of a left leg DVT who presented to the [facility] emergency department with a complaint of progressively worsening shortness of breath. The patient states that approximately four days ago, he was feeling somewhat tired and had developed diarrhea. He stated that his diarrhea continued and he began to feel more and more tired. The patient also states that he had what was felt to be fevers and chills although he did not take his temperature himself. The patient states that he did have somewhat of a cough and felt a little more winded than is normal. He has denied any chest pain at the time, palpitations, abdominal pain. His only complaint was the diarrhea as well as the fevers, chills and somewhat increase in shortness of breath. The patient was admitted to the hospitalist service where he had received a COVID test which was negative. The patient also was started on antibiotics with vancomycin and cefepime. His COVID test had resulted negative. The patient did receive a chest x-ray at the time which showed bilateral pulmonary infiltrates on the right greater than the left which was progression from his previous studies. During the patient's hospitalization, he was noted to become more acutely hypoxic overnight requiring increasing amounts of oxygen, upwards of six liters nasal cannula with saturations of 78%. The patient was then switched to a nonrebreather and subsequently a Venturi mask with FiO2 of 50. Pulmonary/critical care medicine was consulted for his worsening hypoxia. Currently today, the patient states he does feel a little more short of breath than his normal. He denies any pleuritic chest pain. He denies any difficulty with deep breaths. He states that he feels somewhat okay although he is requiring high amounts of oxygen currently. He does state that he had stopped taking his eliquis for 2 weeks due to issues with affordability. PAST MEDICAL HISTORY: 1. Insulin dependent diabetes mellitus with history of BKA. 2. Coronary artery disease, status post [place] with stent placement. 3. Dyslipidemia. 4. Atrial fibrillation with RVR. 5. Chronic systolic CHF. 6. Hypertension. 7. COPD. 8. Tobacco abuse with 50 year-pack history. 9. Anxiety and depression disorder. 10. History of DVT and PE. 11. History of polysubstance abuse. 12. Constipation. 13. Gastritis. 14. History of DKA. 15. History of hepatitis C. PAST SURGICAL HISTORY: 1. Bilateral cataracts removed, 2016. 2. Heart catheterization more than 10 years ago. SOCIAL HISTORY: The patient is a long-term current smoker with a 50 year-pack history. He drinks alcohol occasionally. He denies any current illicit drug use. FAMILY HISTORY: The patient has an extensive cardiac history in his family with his mother at the age of 47 from an [place] as well as his father. REVIEW OF SYSTEMS: GENERAL: The patient admitted to subjective fevers and chills. He denies any weight loss. He denies any night sweats. HEENT: The patient denies any change in his vision. He denies any difficulty swallowing. He denies any sore throat. He denies any pain on swallowing. He denies any choking. CARDIOVASCULAR: The patient denies any chest pain. He denies any chest pressure. He denies any palpitations or feelings of his heart racing. PULMONARY: The patient admits to some feeling short of breath and more winded than his normal. He admits to a dry cough. He denies any pain on deep inspiration. He denies any hemoptysis. GASTROINTESTINAL: The patient admits to some nausea and vomiting as well as diarrhea. He denies any abdominal pain. GENITOURINARY: The patient denies any changes in urination. He denies any dysuria or increased frequency or urgency. EXTREMITIES: The patient admits to slowly increased swelling in his left lower extremity. He denies any pain in his calves. He denies any loss of sensation in his feet. MUSCULOSKELETAL: The patient denies any back pain, neck pain. NEUROLOGICAL: The patient denies any change in his gait. He denies any change in speech. PSYCH: The patient admits to history of anxiety and depression. HEMATOLOGIC/LYMPHATIC: The patient admits to a history of DVT and PE in the past. He denies any history of GI bleed. INPATIENT MEDICATIONS: 1. Protonix 20 mg daily. 2. Decadron 6 mg daily IV. 3. Combivent one puff every four hours p.r.n. 4. Sliding scale insulin. 5. Vancomycin 1 gm every 12 hours. 6. Norvasc 5 mg daily. 7. Eliquis 5 mg b.i.d. p.o. 8. Atorvastatin 40 mg daily. 9. Levemir 85 units daily. 10. Cozaar 50 mg daily. 11. Lyrica 100 mg daily. 12. Cefepime 2 gm q.8 hours. 13. Tylenol 650 mg q.4 hours p.r.n. 14. Milk of Magnesia 30 mL daily p.r.n. 15. Mylanta 30 mL daily p.r.n. LABORATORY DATA: Hematology: White blood cell 9.5, hemoglobin 13.4, hematocrit 41.6, platelet count 254. Chemistries: Sodium 140, potassium 3.8, chloride 106, CO2 29, BUN 27, creatinine 1.47, fasting glucose 82, calcium 8.5, ferritin 567, lactate dehydrogenase 572, CRP 3.02. Procalcitonin less than 0.05. D-dimer 1934.90. ABG: pH 7.46, pCO2 of 40.4, pO2 of 73.7. IMAGING STUDIES: Chest x-ray is reviewed and report reviewed as well. They do demonstrate moderate bilateral opacities with chronic changes. The patient's CT imaging from August was examined which did demonstrate some interstitial fibrotic changes previously as well as some emphysematous changes as well. However, the patient's chest x-ray does seem to be a little bit more profound than previously. PHYSICAL EXAMINATION: VITAL SIGNS: Temperature 99.4, pulse 92, blood pressure 140/68, pulse oximetry 95% on FiO2 of 50 with Venturi mask. HEENT: Atraumatic, normocephalic. Eyes are nonicteric. Trachea is midline. Mucous membranes are pink and moist. CARDIOVASCULAR: There is a normal S1, S2. He is an irregularly irregular rhythm with a regular rate. No clicks, rubs, or murmurs auscultated. PULMONARY: The patient has somewhat decreased breath sounds in the bases bilaterally. There are some scattered rhonchi. There are no wheezes. There are no rales. There is noted chest expansion. There is no accessory muscle use. ABDOMEN: The patient's abdomen is soft. It is nondistended. It is nontender. There is no tenderness or guarding. He is morbidly obese. EXTREMITIES: The patient has some pitting edema in the left lower extremity. There is no pallor or calf tenderness. He does have full and equal pulses bilaterally and there is no edema in the right lower extremity. ASSESSMENT AND PLAN: Mr. Sun is a 65-year-old male with a history of insulin dependent diabetes mellitus and multiple admissions for DKA, CAD with stent placement, atrial fibrillation, chronic systolic CHF, hypertension, COPD and history of DVT and PE, presented to [facility] with nausea, vomiting, diarrhea and worsening hypoxia. He was tested once in the ER for COVID and was found to be negative. The patient was admitted for a bilateral pneumonia. 1. Acute hypoxemic respiratory failure. The patient was noted to become acutely hypoxic last night. He does have an underlying pneumonia with worsening bilateral opacities. The etiology is questionable at this time. The patient states that he has not been exposed to anyone with COVID although he had reportedly recently been hospitalized. The patient's COVID test in the ER was negative. However, the patient states that he has GI symptoms and fever as well as developed shortness of breath and a cough over the past six days. Currently in agreement, the patient is covered with empiric antibiotics for possible bacterial pneumonia. We will recommend continuing for this time being. Additionally, will repeat COVID-19 PCR due to his symptoms. The test should be performed with a deep nasopharyngeal sample. Additionally, his inflammatory markers are significantly elevated. His D-dimer is rather elevated even though these are nonspecific inflammatory markers. Differential currently includes COVID-19 infectious vs DVT/PE. We will obtain an ultrasound of the lower extremities as the patient has some left-sided unilateral leg swelling to rule out DVT. For the recommendations, we will change patient to high flow nasal cannula for oxygen. We will continue to monitor pending COVID test and D-dimer. We will recommend continuing Decadron. Continue isolation precautions until the patient is COVID negative x2. 2. Left lower leg swelling. The patient had left lower leg swelling. He states that he has had chronic left lower extremity swelling after his DVT in the past. However, he states that he does notice some increase in his swelling in his left leg. We will obtain a Doppler ultrasound of his bilateral lower extremities to rule out DVT. DVT prophylaxis: The patient is currently on Eliquis. GI prophylaxis: Protonix 20 mg daily. Disposition: The patient appears to be severely hypoxic. He does have multiple comorbidities that could prolong his hospitalization. Currently he is relatively stable. We will continue with respiratory support pending COVID test and lower extremity Doppler. Dictated by Grady Heller, DO in conjunction with Adam Elizabeth M.D. Dr. Elizabeth: I participated in the evaluation and management of the dumont components documented in the above and share the assessment of his status. I will be eager to see the results of the studies ordered. MTDD
--- NOTE | 2020-08-05 17:21 | IPNPDOC ---
Text Note Date of Service The patient was seen on 08/05/20. NOTE Subjective: Patient seen and examined at bedside. Overnights events significant for worsening respiratory failure and transferred to PCU. Today. He still notes shortness of breath but has no other medical complaints. Objective: VITAL SIGNS: please see below General: NAD, comfortable HEENT: NC/AT Respiratory: mild rales on R, otherwise CTAB, no wheeze CVS: RRR, normal S1, S2, no murmurs Abdo: soft, NT, ND, +BS Extremities: no edema Psych: calm, cooperative, AAO x 3 A/P: 65-year-old male with a history of IDDM, CAD/A. fib with RVR/chronic systolic CHF/hypertension/COPD presenting with hypoxia likely 2/2 bacterial pneumonia. Given recent hospitalization, and clinical findings, I am not convinced of the negative covid result. Will keep patient on droplet precautions, repeat covid in 24 hours. #COVID - 3rd test returns positive for COVID - transferring to main - start remdesevir, d/c vanco - continue cefepime, dexamethasone, - IS, inhalers - DVT prophylaxis - already on eliquis for afib #IDDM: Insulin sliding scale. FSBS AC and HS. Consistent carbohydrate diet. Hypoglycemic precautions. A1c 9.9. Has frequent admissions for DKA, has difficulties paying for insulin. #Chronic atrial fibrillation: AC Eliquis. Metoprolol. #CAD: allergic to ASA. lipitor 40 mg PO qhs. #HTN: continue home meds. Amlodipine. #CKD3: Avoid nephrotoxins. #Hx DVT: eliquis, patient ran out 2 weeks ago, resume. social media marketer to assist with payment #COPD: duonebs prn. Advair. #Neuropathy: pregabalin #Smoker: smoking cessation teaching done. Nicotine patch. #GI ppx: protonix IV daily. DVT ppx: eliquis Code status: Full Code, per patient. VS,Fishbone, I+O VS, Fishbone, I+O Laboratory Tests 08/05/20 05:50 Vital Signs Date Time Temp Pulse Resp B/P (MAP) Pulse Ox O2 Delivery O2 Flow Rate FiO2 08/05/20 16:00 98.4 77 22 110/70 (83) 95 Non-Rebreather 08/05/20 09:56 15.0 50 I&O- Last 24 Hours up to 6 AM 08/05/20 06:00 Intake Total 1740 ml Output Total 1175 ml Balance 565 ml SUNDEEP SANTOS MD Aug 05, 2020 17:21
[2020-08-05] MEDS ORDERED: REMDESIVIR 200 MG in NS 250 ML IV ONE (21:00)
[2020-08-05] MEDS ORDERED: SODIUM CHLORIDE 0.9% INJ 10 ML SYR IV ONE (23:00)
[2020-08-06] VITALS (7 sets, daily range): BP systolic 109–161; BP diastolic 57–93; O2SAT 91–96
[2020-08-06] MEDS: CEFEPIME HCL 2 GM in D5W MINI-BAG PLUS 50 ML IV SCH ×3 (06:02→21:31)
[2020-08-06] MEDS: HumaLOG INSULIN (NovoLOG) PER UNIT SC SCH ×4 (07:30→21:32)
[2020-08-06 07:39] LABS: BASO % 0.1 % (0.0-1.0); EOS % 0.2 % (0.0-3.0); HEMATOCRIT 38.1 % (42.0-52.0); HEMOGLOBIN 12.4 g/dl (13.5-17.5); LYMPH # 1.1 10^3/uL (1.5-5.0); LYMPH % 12.6 % (24.0-44.0); MEAN CORPUSCULAR HEMOGLOBIN 30.8 pg (27.0-33.0); MEAN CORPUSCULAR HGB CONC 32.5 g/dl (32.0-36.5); MEAN CORPUSCULAR VOLUME 94.5 fl (80.0-96.0); MONO # 0.5 10^3/uL (0.0-0.8); MONO % 5.2 % (0.0-5.0); NEUTROPHILS % 81.4 % (36.0-66.0); PLATELET COUNT, AUTOMATED 253 10^3/uL (150-450); RED BLOOD COUNT 4.03 10^6/uL (4.30-6.10); WHITE BLOOD COUNT 8.7 10^3/uL (4.0-10.0)
[2020-08-06 08:11] LABS: INR 1.18; PROTHROMBIN TIME 15.3 SECONDS (12.5-14.3)
[2020-08-06 08:12] LABS: PARTIAL THROMBOPLASTIN TIME 34.5 SECONDS (24.2-38.5)
[2020-08-06 08:50] LABS: ALBUMIN 2.2 GM/DL (3.2-5.2); ALT/SGPT 24 U/L (12-78); BILIRUBIN,DIRECT < 0.1 MG/DL (0.0-0.2); BILIRUBIN,TOTAL 0.3 MG/DL (0.2-1.0); BLOOD UREA NITROGEN 24 MG/DL (7-18); CALCIUM LEVEL 7.9 MG/DL (8.8-10.2); CARBON DIOXIDE LEVEL 27 MEQ/L (21-32); CHLORIDE LEVEL 106 MEQ/L (98-107); CREATININE FOR GFR 1.15 MG/DL (0.70-1.30); FERRITIN 568 NG/ML (26-388); GLOMERULAR FILTRATION RATE > 60.0 (>49); GLUCOSE, FASTING 38 MG/DL (70-100); MAGNESIUM LEVEL 1.9 MG/DL (1.8-2.4); NT-PRO BNP 427 PG/ML (<125); SODIUM LEVEL 141 MEQ/L (136-145); TOTAL PROTEIN 5.2 GM/DL (6.4-8.2)
[2020-08-06] MEDS: LEVEMIR (INSULIN DETEMIR) 1 UNITS/0.01ML SC SCH ×2 (09:00→21:32)
[2020-08-06] MEDS: HumuLIN R (REGULAR) INSULIN (NovoLIN R) **100U/ML** PER UNIT SC SCH (09:00)
[2020-08-06] MEDS: dexameTHASONE 4 MG/ML 1ML VIAL (J1100 PER 1MG) IV SCH (09:19)
[2020-08-06] MEDS: PREGABALIN 100 MG CAP (LYRICA) PO SCH (09:19)
[2020-08-06] MEDS: PANTOPRAZOLE 20 MG TAB PO SCH (09:20)
[2020-08-06] MEDS: LOSARTAN 50MG TABLET PO SCH (09:21)
[2020-08-06] MEDS: ATORVASTATIN 20 MG TAB PO SCH (09:21)
[2020-08-06] MEDS: amLODIPine 5 MG TAB PO SCH (09:23)
[2020-08-06] MEDS: NICOTINE 21MG/24HR 1 EA TRANSDERMAL TD PRN (12:55)
--- NOTE | 2020-08-06 13:22 | IPNPDOC ---
Date Seen The patient was seen on 08/06/20. Progress Note SUBJECTIVE: Kvng was seen and examined at the bedside this morning. He is currently on 15L venturi mask at 50%FiO2 as there are no more available Vapotherm machines for his use in the hospital. He states he feels well. His shortness of breath has improved. He is coughing but not producing any sputum. He denies any abdominal pain, no nausea, no vomiting and no diarrhea at this time. Nursing reports no issues overnight. Of note, his blood sugar this morning on a.m. labs was found to be 38, which recovered to 100 after drinking some juice. OBJECTIVE PHYSICAL EXAMINATION: VITAL SIGNS: see below GENERAL: alert and oriented, in no apparent distress, pleasant and conversant in full sentences, laying flat in bed, appears somewhat disheveled. HEENT: PERRL, EOMI, Oral mucous membranes are moist without lesions. NECK: The patient has no noted JVD. No adenopathy is appreciated. No thyromegaly CHEST/LUNGS: Lungs are clear bilaterally with some scattered wheezes. There is no subcutaneous air appreciated. There is no tenderness to the chest wall. HEART:Regular rate and rhythm. No murmurs, rubs, or gallops are appreciated. Distal pulses are 2+. No carotid bruits appreciated. ABDOMEN: Soft, nontender, and nondistended. Bowel sounds are positive. No organomegaly is appreciated. No masses are appreciated. There are no peritoneal signs. There is no [place] sign. EXTREMITIES: No peripheral edema. There is no focal long bone tenderness or deformity. SKIN: The patients skin is warm and dry, without rashes or lesions. PSYCHIATRIC: AAO x 3, normal mood/affect NEUROLOGIC: The patient has 5/5 strength to the upper and lower extremities bilaterally. Sensation is intact throughout. Deep tendon reflexes are 2+ in all four extremities. There are no deficits to the cranial nerves. LABORATORY DATA, IMAGING STUDIES, MICROBIOLOGY: Please see below. Echocardiogram: None ASSESSMENT AND PLAN: This is a 65-year-old male with history of insulin- dependent diabetes mellitus, CAD, history of A. fib, chronic systolic congestive heart failure, current smoker with COPD presenting with acute hypoxic respiratory failure found to have Covid 19 pneumonia. PROBLEMS: 1. Acute hypoxic respiratory failure secondary to COVID19 pneumonia: -Continue Remdesivir, currently day 2 -Continue Dexamethasone, currently day 2 -Inflammatory markers: Ferritin stable at 568, LDH last measured at 572, pro-calcitonin pending for today, d-dimer increased to 1934, fibrinogen normal at 441 -Continue Combivent inhaler as needed for shortness of breath 2. Superimposed community-acquired bacterial pneumonia: -Continue cefepime, day 3 3. Insulin-dependent diabetes mellitus: The patient does have history of frequ ent episodes of DKA -Levemir was held this morning due to hypoglycemia. Current dose ordered 85 unit s daily. We will reduce to 30 units twice a day -Patient takes Regular insulin 18U TID. This will be held for this time period due to hypoglycemia -Continue sliding scale insulin with hypoglycemic protocol 4. Chronic atrial fibrillation: -Home Eliquis stopped as patient was put on full dose Lovenox 5. Recent DVT in left lower extremity: -Doppler ultrasound ordered yesterday shows presence of DVT. The patient apparently stopped taking his anticoagulation at home. -Continue full dose of Lovenox 6. History of CAD: -Patient has an allergy to aspirin -Continue Lipitor 7. Hypertension: -Continue amlodipine -Losartan held for now for renal function. Can add metoprolol if needed 8. CKD3: -Renal function initially worsened at 1.47 creatinine, today improved to 1.15. Avoid nephrotoxic medications, including Losartan 9. Current daily smoker, with COPD: -Nicotine patch ordered as needed 10. History of diabetic neuropathy: -Continue Lyrica GI prophylaxis: IV Protonix daily DVT prophylaxis ordered?: Full dose Lovenox DISPOSITION: - Pending improvement in oxygenation VS, I&O, 24H, [facility] Vital Signs/I&O Vital Signs Date Time Temp Pulse Resp B/P (MAP) Pulse Ox O2 Delivery O2 Flow Rate FiO2 08/06/20 04:00 98.4 90 18 124/59 (80) 90 Venturi Mask 50 08/06/20 04:00 15.0 I&O- Last 24 Hours up to 6 AM0 08/06/20 06:00 Intake Total 1360 ml Output Total 600 ml Balance 760 ml Laboratory Data 24H LABS Laboratory Tests 2 08/05/20 11:23: Bedside Glucose (Misc Panel) 124H 08/05/20 14:18: Vancomycin Level Trough 14.8 08/05/20 15:42: Coronavirus (COVID-19)(PCR) POSITIVEA 08/05/20 17:18: Bedside Glucose (Misc Panel) 247H 08/05/20 20:18: Bedside Glucose (Misc Panel) 194H 08/06/20 07:20: Immature Granulocyte % (Auto) 0.5, Neutrophils (%) (Auto) 81.4H, Lymphocytes (%) (Auto) 12.6L, Monocytes (%) (Auto) 5.2H, Eosinophils (%) (Auto) 0.2, Basophils (%) (Auto) 0.1, Neutrophils # (Auto) 7.0, Lymphocytes # (Auto) 1.1L, Monocytes # (Auto) 0.5, Eosinophils # (Auto) 0.0, Basophils # (Auto) 0.0, Nucleated Red Blood Cells % (auto) 0.0, Prothrombin Time 15.3H, Prothromb Time International Ratio 1.18, Activated Partial Thromboplast Time 34.5, Fibrinogen 433, Anion Gap 8, Glomerular Filtration Rate > 60.0, Calcium Level 7.9L, Magnesium Level 1.9, Ferritin 568H, Total Bilirubin 0.3, Direct Bilirubin < 0.1, Aspartate Amino Transf (AST/SGOT) 40H, Alanine Aminotransferase (ALT/SGPT) 24, Alkaline Phosphatase 38L, IX-[id number]-Type Natriuretic Peptide 427H, Total Protein 5.2L, Albumin 2.2L, Albumin/Globulin Ratio 0.7 CBC/BMP Laboratory Tests 08/06/20 07:20 Microbiology Microbiology 08/04/20 Blood Culture - Preliminary, Resulted No growth after 24 hours . All specim... 08/03/20 Respiratory Virus Panel (PCR) (MEGA) - Final, Complete 08/03/20 Blood Culture - Preliminary, Resulted No Growth after 48 hours. All Specime... GME ATTESTATION GME ATTESTATION My faculty preceptor for this patient encounter was physically present during t he encounter and was fully available. All aspects of the patient interview, examination, medical decision making process, and medical care plan development were reviewed and approved by the faculty preceptor. The faculty preceptor is aware and concurs with the plan as stated in the body of this note and will attest to such by his/her cosignature. ATTENDING NOTE I, Jhonny Tam, have independently examined this patient and performed my own physical exam, as well as reviewed the documentation and edited where necessary. I have discussed in detail with the resident / student the findings and plan of treatment as documented by the resident / student and edited their note. I agree with their findings and treatment plan and have edited their documentation. I will continue to follow the patient during this hospital stay. BLAISE CERNA MD Aug 06, 2020 08:59 JHONNY TAM MD Aug 06, 2020 15:54
[2020-08-06] MEDS: ENOXAPARIN 60MG/0.6ML SYRINGE (J1650 PER 10MG) SC SCH ×2 (14:20→20:04)
[2020-08-06] MEDS: ACETAMINOPHEN TAB 650MG DOSE (2X325MG) PO PRN (20:04)
[2020-08-06] MEDS: REMDESIVIR 100 MG in NS 250 ML IV SCH (21:31)
[2020-08-06] MEDS: SODIUM CHLORIDE 0.9% INJ 10 ML SYR IV SCH (21:31)
[2020-08-07] VITALS (8 sets, daily range): BP systolic 131–156; BP diastolic 60–91; O2SAT 85–99
[2020-08-07] MEDS: CEFEPIME HCL 2 GM in D5W MINI-BAG PLUS 50 ML IV SCH ×3 (06:45→21:33)
[2020-08-07 07:49] LABS: MEAN CORPUSCULAR HEMOGLOBIN 30.4 pg (27.0-33.0); MEAN CORPUSCULAR HGB CONC 32.4 g/dl (32.0-36.5); MEAN CORPUSCULAR VOLUME 93.7 fl (80.0-96.0); PLATELET COUNT, AUTOMATED 261 10^3/uL (150-450); RED BLOOD COUNT 3.95 10^6/uL (4.30-6.10); WHITE BLOOD COUNT 6.7 10^3/uL (4.0-10.0)
[2020-08-07 08:12] LABS: INR 1.12; PROTHROMBIN TIME 14.7 SECONDS (12.5-14.3)
[2020-08-07 08:13] LABS: LYMPHOCYTES 11 % (16-44); MONOCYTES 6 % (0-5); NEUTROPHILS 83 % (28-66); PARTIAL THROMBOPLASTIN TIME 40.9 SECONDS (24.2-38.5); PLATELET ESTIMATE NORMAL (NORMAL)
[2020-08-07 08:49] LABS: ALT/SGPT 24 U/L (12-78); BILIRUBIN,DIRECT 0.1 MG/DL (0.0-0.2); BILIRUBIN,TOTAL 0.4 MG/DL (0.2-1.0); BLOOD UREA NITROGEN 30 MG/DL (7-18); CALCIUM LEVEL 8.2 MG/DL (8.8-10.2); CARBON DIOXIDE LEVEL 27 MEQ/L (21-32); CHLORIDE LEVEL 105 MEQ/L (98-107); CREATININE FOR GFR 1.08 MG/DL (0.70-1.30); FERRITIN 782 NG/ML (26-388); GLOMERULAR FILTRATION RATE > 60.0 (>49); GLUCOSE, FASTING 218 MG/DL (70-100); NT-PRO BNP 895 PG/ML (<125); POTASSIUM SERUM 4.4 MEQ/L (3.5-5.1); SODIUM LEVEL 139 MEQ/L (136-145); TOTAL PROTEIN 5.1 GM/DL (6.4-8.2)
[2020-08-07] MEDS: HumaLOG INSULIN (NovoLOG) PER UNIT SC SCH ×4 (09:16→20:23)
[2020-08-07] MEDS: LEVEMIR (INSULIN DETEMIR) 1 UNITS/0.01ML SC SCH ×2 (09:18→20:24)
[2020-08-07] MEDS: PREGABALIN 100 MG CAP (LYRICA) PO SCH (09:19)
[2020-08-07] MEDS: dexameTHASONE 4 MG/ML 1ML VIAL (J1100 PER 1MG) IV SCH (09:19)
[2020-08-07] MEDS: ATORVASTATIN 20 MG TAB PO SCH (09:19)
[2020-08-07] MEDS: PANTOPRAZOLE 20 MG TAB PO SCH (09:19)
[2020-08-07] MEDS: ENOXAPARIN 60MG/0.6ML SYRINGE (J1650 PER 10MG) SC SCH ×2 (09:20→20:24)
[2020-08-07] MEDS: amLODIPine 5 MG TAB PO SCH (09:20)
[2020-08-07 09:29] LABS: D-DIMER QUANT 1389.01 ng/ml (<500)
[2020-08-07 11:17] LABS: C REACTIVE PROTEIN QUANTITATIV 9.09 MG/DL (0.00-0.30)
--- NOTE | 2020-08-07 12:50 | IPNPDOC ---
Date Seen The patient was seen on 08/07/20. Progress Note SUBJECTIVE: Kvng was seen and examined at the bedside this morning. On the Vapotherm he is currently requiring 30L at 90% FiO2. He states he feels well. His shortness of breath has improved. He is coughing but not producing any sputum. He denies any abdominal pain, no nausea, no vomiting and no diarrhea at this time. Nursing reports no issues overnight. OBJECTIVE PHYSICAL EXAMINATION: VITAL SIGNS: see below GENERAL: alert and oriented, in no apparent distress, pleasant and conversant in full sentences, laying flat in bed, appears somewhat disheveled. HEENT: PERRL, EOMI, Oral mucous membranes are moist without lesions. NECK: The patient has no noted JVD. No adenopathy is appreciated. No thyromegaly CHEST/LUNGS: Lungs are clear bilaterally with some scattered wheezes. There is no subcutaneous air appreciated. There is no tenderness to the chest wall. HEART:Regular rate and rhythm. No murmurs, rubs, or gallops are appreciated. Distal pulses are 2+. No carotid bruits appreciated. ABDOMEN: Soft, nontender, and nondistended. Bowel sounds are positive. No organomegaly is appreciated. No masses are appreciated. There are no peritoneal signs. There is no [place] sign. EXTREMITIES: No peripheral edema. There is no focal long bone tenderness or deformity. SKIN: The patients skin is warm and dry, without rashes or lesions. PSYCHIATRIC: AAO x 3, normal mood/affect NEUROLOGIC: The patient has 5/5 strength to the upper and lower extremities bilaterally. Sensation is intact throughout. Deep tendon reflexes are 2+ in all four extremities. There are no deficits to the cranial nerves. LABORATORY DATA, IMAGING STUDIES, MICROBIOLOGY: Please see below. Echocardiogram: None ASSESSMENT AND PLAN: This is a 65-year-old male with history of insulin- dependent diabetes mellitus, CAD, history of A. fib, chronic systolic congestive heart failure, current smoker with COPD presenting with acute hypoxic respiratory failure found to have Covid 19 pneumonia. PROBLEMS: 1. Acute hypoxic respiratory failure secondary to COVID19 pneumonia: -Continue Remdesivir, currently day 3 -Continue Dexamethasone, currently day 3 -Inflammatory markers: CRP trended up to 9.09, D-dimer down to 1389, Fibrinogen up to 509, BNP up to 895 -Continue Combivent inhaler as needed for shortness of breath 2. Superimposed community-acquired bacterial pneumonia: -Continue cefepime, day 4 3. Insulin-dependent diabetes mellitus: The patient does have history of frequent episodes of DKA -Levemir resumed this morning, 30U BID -Patient takes Regular insulin 18U TID. This will be held for this time period due to hypoglycemia -Continue sliding scale insulin with hypoglycemic protocol 4. Chronic atrial fibrillation: -Home Eliquis stopped as patient was put on full dose Lovenox 5. Recent DVT in left lower extremity: -Doppler ultrasound ordered yesterday shows presence of DVT. The patient apparently stopped taking his anticoagulation at home. -Continue full dose of Lovenox 6. History of CAD: -Patient has an allergy to aspirin -Continue Lipitor 7. Hypertension: -Continue amlodipine -Losartan held for now for renal function. Can add metoprolol if needed 8. CKD3: -stable. Cr 1.08 9. Current daily smoker, with COPD: -Nicotine patch ordered as needed 10. History of diabetic neuropathy: -Continue Lyrica GI prophylaxis: IV Protonix daily DVT prophylaxis ordered?: Full dose Lovenox DISPOSITION: - Pending improvement in oxygenation VS, I&O, 24H, [facility] Vital Signs/I&O Vital Signs Date Time Temp Pulse Resp B/P (MAP) Pulse Ox O2 Delivery O2 Flow Rate FiO2 08/07/20 12:00 98.0 66 22 132/63 (86) 93 HVNI-Vapotherm 30.0 90 I&O- Last 24 Hours up to 6 AM 08/07/20 06:00 Intake Total 1310 ml Output Total 2350 ml Balance -1040 ml Laboratory Data 24H LABS Laboratory Tests 2 08/06/20 16:51: Bedside Glucose (Misc Panel) 273H 08/06/20 20:08: Bedside Glucose (Misc Panel) 311H 08/07/20 07:24: Neutrophils (%) (Auto) , Nucleated Red Blood Cells % (auto) 0.0, Neutrophils 83H, Lymphocytes (Manual) 11L, Monocytes (Manual) 6H, Red Blood Cell Morphology NORMAL, Platelet Estimate NORMAL, Prothrombin Time 14.7H, Prothromb Time International Ratio 1.12, Activated Partial Thromboplast Time 40.9H, Fibrinogen 509H, D-Dimer, Quantitative 1389.01H, Anion Gap 7L, Glomerular Filtration Rate > 60.0, Calcium Level 8.2L, Magnesium Level 2.0, Ferritin 782H, Total Bilirubin 0.4, Direct Bilirubin 0.1, Aspartate Amino Transf (AST/SGOT) 30, Alanine Aminotransferase (ALT/SGPT) 24, Alkaline Phosphatase 41L, C-Reactive Protein, Quantitative 9.09H, WE-Eth-P-Type Natriuretic Peptide 895H, Total Protein 5.1L, Albumin 2.0L, Albumin/Globulin Ratio 0.6, Procalcitonin <0.05 08/07/20 12:11: Bedside Glucose (Misc Panel) 234H CBC/BMP Laboratory Tests 08/07/20 07:24 Microbiology Microbiology 08/04/20 Blood Culture - Preliminary, Resulted No Growth after 48 hours. All Specime... 08/03/20 Respiratory Virus Panel (PCR) (MEGA) - Final, Complete 08/03/20 Blood Culture - Preliminary, Resulted No Growth after 72 hours. All specime... GME ATTESTATION GME ATTESTATION My faculty preceptor for this patient encounter was physically present during the encounter and was fully available. All aspects of the patient interview, examination, medical decision making process, and medical care plan development were reviewed and approved by the faculty preceptor. The faculty preceptor is aware and concurs with the plan as stated in the body of this note and will attest to such by his/her cosignature. ATTENDING NOTE I, Jhonny Tam, have independently examined this patient and performed my own physical exam, as well as reviewed the documentation and edited where necessary. I have discussed in detail with the resident / student the findings and plan of treatment as documented by the resident / student and edited their note. I agree with their findings and treatment plan and have edited their documentation. I will continue to follow the patient during this hospital stay. BLAISE CERNA MD Aug 07, 2020 12:50 JHONNY TAM MD Aug 07, 2020 15:10
[2020-08-07] MEDS: ACETAMINOPHEN TAB 650MG DOSE (2X325MG) PO PRN (18:20)
[2020-08-07] MEDS: REMDESIVIR 100 MG in NS 250 ML IV SCH (20:24)
[2020-08-07] MEDS: SODIUM CHLORIDE 0.9% INJ 10 ML SYR IV SCH (22:09)
[2020-08-08] VITALS: BP 131/80; O2SAT 91
[2020-08-08 04:00] VITALS: O2SAT 95
[2020-08-08 04:06] VITALS: BP 132/83
[2020-08-08] MEDS: CEFEPIME HCL 2 GM in D5W MINI-BAG PLUS 50 ML IV SCH (06:00)
[2020-08-08 07:51] LABS: HEMATOCRIT 36.9 % (42.0-52.0); MEAN CORPUSCULAR HEMOGLOBIN 30.2 pg (27.0-33.0); MEAN CORPUSCULAR HGB CONC 32.5 g/dl (32.0-36.5); MEAN CORPUSCULAR VOLUME 92.9 fl (80.0-96.0); PLATELET COUNT, AUTOMATED 304 10^3/uL (150-450); RED BLOOD COUNT 3.97 10^6/uL (4.30-6.10); WHITE BLOOD COUNT 8.3 10^3/uL (4.0-10.0)
[2020-08-08 08:00] VITALS: BP 170/79
[2020-08-08 08:25] LABS: ALBUMIN 1.9 GM/DL (3.2-5.2); ALT/SGPT 21 U/L (12-78); BILIRUBIN,DIRECT 0.1 MG/DL (0.0-0.2); BILIRUBIN,TOTAL 0.3 MG/DL (0.2-1.0); BLOOD UREA NITROGEN 34 MG/DL (7-18); C REACTIVE PROTEIN QUANTITATIV 5.95 MG/DL (0.00-0.30); CALCIUM LEVEL 8.4 MG/DL (8.8-10.2); CARBON DIOXIDE LEVEL 27 MEQ/L (21-32); CHLORIDE LEVEL 104 MEQ/L (98-107); CREATININE FOR GFR 1.08 MG/DL (0.70-1.30); FERRITIN 865 NG/ML (26-388); GLOMERULAR FILTRATION RATE > 60.0 (>49); GLUCOSE, FASTING 266 MG/DL (70-100); MAGNESIUM LEVEL 1.9 MG/DL (1.8-2.4); NT-PRO BNP 721 PG/ML (<125); SODIUM LEVEL 138 MEQ/L (136-145); TOTAL PROTEIN 5.5 GM/DL (6.4-8.2)
[2020-08-08 08:49] LABS: ATYPICAL LYMPH 5 % (0-5); LYMPHOCYTES 9 % (16-44); MONOCYTES 8 % (0-5); NEUTROPHILS 78 % (28-66)
[2020-08-08 08:53] LABS: INR 1.17; PROTHROMBIN TIME 15.2 SECONDS (12.5-14.3)
[2020-08-08 09:05] LABS: PLATELET ESTIMATE NORMAL (NORMAL)
[2020-08-08] MEDS: dexameTHASONE 4 MG/ML 1ML VIAL (J1100 PER 1MG) IV SCH (09:30)
[2020-08-08] MEDS: HumaLOG INSULIN (NovoLOG) PER UNIT SC SCH ×4 (09:33→22:14)
[2020-08-08] MEDS: LEVEMIR (INSULIN DETEMIR) 1 UNITS/0.01ML SC SCH ×2 (09:33→22:12)
[2020-08-08] MEDS: ATORVASTATIN 20 MG TAB PO SCH (09:34)
[2020-08-08] MEDS: ENOXAPARIN 60MG/0.6ML SYRINGE (J1650 PER 10MG) SC SCH (09:34)
[2020-08-08] MEDS: PANTOPRAZOLE 20 MG TAB PO SCH (09:34)
[2020-08-08] MEDS: PREGABALIN 100 MG CAP (LYRICA) PO SCH (09:34)
[2020-08-08] MEDS: amLODIPine 5 MG TAB PO SCH (09:35)
--- NOTE | 2020-08-08 11:25 | IPNPDOC ---
Date Seen The patient was seen on 08/08/20. Progress Note SUBJECTIVE: Kvng was seen and examined at the bedside this morning. He is currently on 35 L Vapotherm at 100 % FiO2. He denies any worsened shortness of breath, dyspnea, or cough. He is very concerned because his girlfriend called this morning and states she is symptomatic likely from being exposed to him. Otherwise he asks if he can have more food as he feels very hungry. He denies any abdominal pain, nausea, vomiting, diarrhea or constipation at this time. He slept well last night. Nursing reports no concerns at this time. OBJECTIVE PHYSICAL EXAMINATION: VITAL SIGNS: see below GENERAL: alert and oriented, in no apparent distress, pleasant and conversant in full sentences, laying flat in bed, appears somewhat disheveled. HEENT: PERRL, EOMI, Oral mucous membranes are moist without lesions. NECK: The patient has no noted JVD. No adenopathy is appreciated. No thyromegaly CHEST/LUNGS: Lungs are clear bilaterally with some scattered wheezes. There is no subcutaneous air appreciated. There is no tenderness to the chest wall. HEART: Regular rate and rhythm. No murmurs, rubs, or gallops are appreciated. Distal pulses are 2+. No carotid bruits appreciated. ABDOMEN: Obese, Soft, nontender, and nondistended. Bowel sounds are positive. No organomegaly is appreciated. No masses are appreciated. There are no peritoneal signs. There is no [place] sign. EXTREMITIES: No peripheral edema. There is no focal long bone tenderness or deformity. SKIN: The patients skin is warm and dry, without rashes or lesions. PSYCHIATRIC: AAO x 3, normal mood/affect NEUROLOGIC: The patient has 5/5 strength to the upper and lower extremities bilaterally. Sensation is intact throughout. Deep tendon reflexes are 2+ in all four extremities. There are no deficits to the cranial nerves. LABORATORY DATA, IMAGING STUDIES, MICROBIOLOGY: Please see below. Echocardiogram: None ASSESSMENT AND PLAN: This is a 65-year-old male with history of insulin- dependent diabetes mellitus, CAD, history of A. fib, chronic systolic congestive heart failure, current smoker with COPD presenting with acute hypoxic respiratory failure found to have Covid 19 pneumonia. PROBLEMS: 1. Acute hypoxic respiratory failure secondary to COVID19 pneumonia: -Continue Remdesivir, currently day 4 -Continue Dexamethasone, currently day 4 -Inflammatory markers: Ferritin up to 865, CRP down to 5.9, BNP down to 721, d- dimer yesterday trended down to 1389 -Continue Combivent inhaler as needed for shortness of breath -Encourage use of incentive spirometer, proning 2. Superimposed community-acquired bacterial pneumonia: -Continue cefepime, day 5. Will stop after today as not necessary 3. Insulin-dependent diabetes mellitus: The patient does have history of frequent episodes of DKA -Continue Levemir 30U BID -Continue sliding scale insulin with hypoglycemic protocol 4. Chronic atrial fibrillation: -Home Eliquis stopped as patient was put on full dose Lovenox due to DVT at the lower left extremity 5. Recent DVT in left lower extremity: -Doppler ultrasound ordered shows presence of DVT. The patient apparently stoppe d taking his anticoagulation at home. -Continue full dose of Lovenox 6. History of CAD: -Patient has an allergy to aspirin -Continue Lipitor 7. Hypertension: -Continue amlodipine -Home dose of Losartan restarted due to elevated blood pressures. 8. CKD3: -stable. Cr 1.08 9. Current daily smoker, with COPD: -Nicotine patch ordered as needed 10. History of diabetic neuropathy: -Continue Lyrica GI prophylaxis: IV Protonix daily DVT prophylaxis ordered?: Lovenox weight-based treatment dose 50 units twice a day DISPOSITION: - Pending improvement in oxygenation VS, I&O, 24H, [facility] Vital Signs/I&O Vital Signs Date Time Temp Pulse Resp B/P (MAP) Pulse Ox O2 Delivery O2 Flow Rate FiO2 08/08/20 04:06 96.8 71 18 132/83 (99) 93 HVNI-Vapotherm 30.0 45 I&O- Last 24 Hours up to 6 AM 08/08/20 06:00 Intake Total 1560 ml Output Total 2475 ml Balance -915 ml Laboratory Data 24H LABS Laboratory Tests 2 08/07/20 12:11: Bedside Glucose (Misc Panel) 234H 08/07/20 16:50: Bedside Glucose (Misc Panel) 222H 08/07/20 20:04: Bedside Glucose (Misc Panel) 272H 08/08/20 07:01: Neutrophils (%) (Auto) , Nucleated Red Blood Cells % (auto) 0.0 CBC/BMP Laboratory Tests 08/08/20 07:01 Microbiology Microbiology 08/04/20 Blood Culture - Preliminary, Resulted No Growth after 72 hours. All specime... 08/03/20 Respiratory Virus Panel (PCR) (MEGA) - Final, Complete 08/03/20 Blood Culture - Preliminary, Resulted No Growth after 72 hours. All specime... GME ATTESTATION GME ATTESTATION My faculty preceptor for this patient encounter was physically present during the encounter and was fully available. All aspects of the patient interview, examination, medical decision making process, and medical care plan development were reviewed and approved by the faculty preceptor. The faculty preceptor is aware and concurs with the plan as stated in the body of this note and will attest to such by his/her cosignature. ATTENDING NOTE I, Jhonny Tam, have independently examined this patient and performed my own physical exam, as well as reviewed the documentation and edited where necessary. I have discussed in detail with the resident / student the findings and plan of treatment as documented by the resident / student and edited their note. I agree with their findings and treatment plan and have edited their documentation. I will continue to follow the patient during this hospital stay. BLAISE CERNA MD Aug 08, 2020 08:28 JHONNY TAM MD Aug 08, 2020 14:56
[2020-08-08] MEDS: LOSARTAN 50MG TABLET PO SCH (12:23)
[2020-08-08] MEDS ORDERED: ENOXAPARIN 60MG/0.6ML SYRINGE (J1650 PER 10MG) SC ONE (15:00)
[2020-08-08 16:00] VITALS: BP 151/65
[2020-08-08 20:00] VITALS: BP 160/72
[2020-08-08] MEDS: REMDESIVIR 100 MG in NS 250 ML IV SCH (22:11)
[2020-08-08] MEDS: ENOXAPARIN 100MG/1ML SYRINGE (J1650 PER 10MG) SC SCH (22:12)
[2020-08-08] MEDS: SODIUM CHLORIDE 0.9% INJ 10 ML SYR IV SCH (22:13)
[2020-08-09] VITALS (27 sets, daily range): BP systolic 104–163; BP diastolic 60–79; O2SAT 74–98
[2020-08-09] MEDS: ACETAMINOPHEN TAB 650MG DOSE (2X325MG) PO PRN ×2 (05:49→11:10)
[2020-08-09 08:41] LABS: HEMATOCRIT 37.6 % (42.0-52.0); HEMOGLOBIN 12.9 g/dl (13.5-17.5); MEAN CORPUSCULAR HEMOGLOBIN 31.1 pg (27.0-33.0); MEAN CORPUSCULAR HGB CONC 34.3 g/dl (32.0-36.5); MEAN CORPUSCULAR VOLUME 90.6 fl (80.0-96.0); PLATELET COUNT, AUTOMATED 361 10^3/uL (150-450); RED BLOOD COUNT 4.15 10^6/uL (4.30-6.10); WHITE BLOOD COUNT 8.6 10^3/uL (4.0-10.0)
[2020-08-09 08:52] LABS: INR 1.11; PROTHROMBIN TIME 14.6 SECONDS (12.5-14.3)
[2020-08-09 08:53] LABS: PARTIAL THROMBOPLASTIN TIME 44.4 SECONDS (24.2-38.5)
[2020-08-09 09:03] LABS: ALBUMIN 2.1 GM/DL (3.2-5.2); ALT/SGPT 25 U/L (12-78); BILIRUBIN,DIRECT 0.2 MG/DL (0.0-0.2); BILIRUBIN,TOTAL 0.4 MG/DL (0.2-1.0); BLOOD UREA NITROGEN 35 MG/DL (7-18); C REACTIVE PROTEIN QUANTITATIV 5.63 MG/DL (0.00-0.30); CALCIUM LEVEL 8.3 MG/DL (8.8-10.2); CARBON DIOXIDE LEVEL 29 MEQ/L (21-32); CHLORIDE LEVEL 103 MEQ/L (98-107); CREATININE FOR GFR 1.11 MG/DL (0.70-1.30); FERRITIN 740 NG/ML (26-388); GLOMERULAR FILTRATION RATE > 60.0 (>49); GLUCOSE, FASTING 173 MG/DL (70-100); MAGNESIUM LEVEL 1.8 MG/DL (1.8-2.4); NT-PRO BNP 652 PG/ML (<125); SODIUM LEVEL 138 MEQ/L (136-145); TOTAL PROTEIN 5.6 GM/DL (6.4-8.2)
[2020-08-09 09:33] LABS: ATYPICAL LYMPH 4 % (0-5); EOSINOPHILS 1 % (0-3); LYMPHOCYTES 17 % (16-44); MONOCYTES 6 % (0-5); NEUTROPHILS 70 % (28-66); PLATELET ESTIMATE NORMAL (NORMAL)
[2020-08-09] MEDS: LOSARTAN 50MG TABLET PO SCH (11:08)
[2020-08-09] MEDS: PANTOPRAZOLE 20 MG TAB PO SCH (11:08)
[2020-08-09] MEDS: ATORVASTATIN 20 MG TAB PO SCH (11:09)
[2020-08-09] MEDS: ENOXAPARIN 100MG/1ML SYRINGE (J1650 PER 10MG) SC SCH ×2 (11:09→20:13)
[2020-08-09] MEDS: NICOTINE 21MG/24HR 1 EA TRANSDERMAL TD PRN (11:10)
[2020-08-09] MEDS: PREGABALIN 100 MG CAP (LYRICA) PO SCH (11:10)
[2020-08-09] MEDS: LEVEMIR (INSULIN DETEMIR) 1 UNITS/0.01ML SC SCH ×2 (11:11→20:13)
[2020-08-09] MEDS: amLODIPine 5 MG TAB PO SCH (11:11)
[2020-08-09] MEDS: dexameTHASONE 4 MG/ML 1ML VIAL (J1100 PER 1MG) IV SCH (11:11)
[2020-08-09] MEDS: HumaLOG INSULIN (NovoLOG) PER UNIT SC SCH ×4 (11:12→20:13)
--- NOTE | 2020-08-09 11:18 | IPNPDOC ---
Date Seen The patient was seen on 08/09/20. Progress Note SUBJECTIVE: Kvng was seen and examined at the bedside this morning. He is currently requiring 40L and 100% FiO2. Nursing notes indicate they have found him without nasal cannula on in his room with oxygen saturation in the 70s overnight. He was educated by myself regarding the importance to wearing his nasal cannula at all times. He complains that the chair in his room is uncomfortable and he does not like laying in bed all day. He is also concerned about his girlfriend at home who has contracted the Coronavirus from him. I spent some time teaching him how to use his incentive spirometer and instructed him to repeat this several times an hour. He voiced understanding. He denies any nausea/vomiting/diarrhea today. He has no other complaints. OBJECTIVE PHYSICAL EXAMINATION: VITAL SIGNS: see below GENERAL: alert and oriented, in no apparent distress, pleasant and conversant in full sentences, laying flat in bed, appears somewhat disheveled. HEENT: PERRL, EOMI, Oral mucous membranes are moist without lesions. NECK: The patient has no noted JVD. No adenopathy is appreciated. No thyromegaly CHEST/LUNGS: Lungs are clear bilaterally with some scattered wheezes. There is no subcutaneous air appreciated. There is no tenderness to the chest wall. HEART: Regular rate and rhythm. No murmurs, rubs, or gallops are appreciated. Distal pulses are 2+. No carotid bruits appreciated. ABDOMEN: Obese, Soft, nontender, and nondistended. Bowel sounds are positive. No organomegaly is appreciated. No masses are appreciated. There are no peritoneal signs. There is no [place] sign. EXTREMITIES: No peripheral edema. There is no focal long bone tenderness or deformity. SKIN: The patients skin is warm and dry, without rashes or lesions. PSYCHIATRIC: AAO x 3, normal mood/affect NEUROLOGIC: The patient has 5/5 strength to the upper and lower extremities bilaterally. Sensation is intact throughout. Deep tendon reflexes are 2+ in all four extremities. There are no deficits to the cranial nerves. LABORATORY DATA, IMAGING STUDIES, MICROBIOLOGY: Please see below. Echocardiogram: None ASSESSMENT AND PLAN: This is a 65-year-old male with history of insulin- dependent diabetes mellitus, CAD, history of A. fib, chronic systolic congestive heart failure, current smoker with COPD presenting with acute hypoxic respiratory failure found to have Covid 19 pneumonia. PROBLEMS: 1. Acute hypoxic respiratory failure secondary to COVID19 pneumonia: -Continue Remdesivir, currently day 5 -Continue Dexamethasone, currently day 5 -Inflammatory markers: Ferritin down to 740, CRP somewhat similar to yesterday at 5.63, fibrinogen slightly up to 489 -Continue Combivent inhaler as needed for shortness of breath -Encourage use of incentive spirometer, proning 2. Superimposed community-acquired bacterial pneumonia: -s/p 5 days of cefepime 3. Insulin-dependent diabetes mellitus: The patient does have history of frequent episodes of DKA -Continue Levemir 30U BID -Continue sliding scale insulin with hypoglycemic protocol 4. Chronic atrial fibrillation: -Home Eliquis stopped as patient was put on full dose Lovenox due to DVT at the lower left extremity 5. Recent DVT in left lower extremity: -Doppler ultrasound ordered shows presence of DVT. The patient apparently stopped taking his anticoagulation at home. -Continue full dose of Lovenox 6. History of CAD: -Patient has an allergy to aspirin -Continue Lipitor 7. Hypertension: -Continue amlodipine -Home dose of Losartan restarted due to elevated blood pressures. 8. CKD3: -stable. Cr 1.08 9. Current daily smoker, with COPD: -Nicotine patch ordered as needed 10. History of diabetic neuropathy: -Continue Lyrica GI prophylaxis: IV Protonix daily DVT prophylaxis ordered?: Lovenox full dose treatment 100 mg every 12 hours DISPOSITION: - Pending improvement in oxygenation VS, I&O, 24H, [facility] Vital Signs/I&O Vital Signs Date Time Temp Pulse Resp B/P (MAP) Pulse Ox O2 Delivery O2 Flow Rate FiO2 08/09/20 08:32 88 HVNI-Vapotherm 40.0 100 08/09/20 08:00 97.4 66 20 121/61 (81) I&O- Last 24 Hours up to 6 AM 08/09/20 06:00 Intake Total 1920 ml Output Total 1900 ml Balance 20 ml Laboratory Data 24H LABS Laboratory Tests 2 08/08/20 12:21: Bedside Glucose (Misc Panel) 267H 08/08/20 16:56: Bedside Glucose (Misc Panel) 297H 08/08/20 21:52: Bedside Glucose (Misc Panel) 357H 08/09/20 07:07: Bedside Glucose (Misc Panel) 197H 08/09/20 08:18: Neutrophils (%) (Auto) , Nucleated Red Blood Cells % (auto) 0.0, Neutrophils 70H, Band Neutrophils 2, Lymphocytes (Manual) 17, Monocytes (Manual) 6H, Eosinophils (Manual) 1, Atypical Lymphocytes 4, Platelet Estimate NORMAL, Prothrombin Time 14.6H, Prothromb Time International Ratio 1.11, Activated Partial Thromboplast Time 44.4H, Fibrinogen 489H, Anion Gap 6L, Glomerular Filtration Rate > 60.0, Calcium Level 8.3L, Magnesium Level 1.8, Ferritin 740H, Total Bilirubin 0.4, Direct Bilirubin 0.2, Aspartate Amino Transf (AST/SGOT) 24, Alanine Aminotransferase (ALT/SGPT) 25, Alkaline Phosphatase 60, C-Reactive Protein, Quantitative 5.63H, KU-Coo-U-Type Natriuretic Peptide 652H, Total Protein 5.6L, Albumin 2.1L, Albumin/Globulin Ratio 0.6 CBC/BMP Laboratory Tests 08/09/20 08:18 Microbiology Microbiology 08/04/20 Blood Culture - Preliminary, Resulted No Growth after 72 hours. All specime... 08/03/20 Respiratory Virus Panel (PCR) (MEGA) - Final, Complete 08/03/20 Blood Culture - Final, Complete NO GROWTH AFTER 5 DAYS GME ATTESTATION GME ATTESTATION My faculty preceptor for this patient encounter was physically present during the encounter and was fully available. All aspects of the patient interview, examination, medical decision making process, and medical care plan development were reviewed and approved by the faculty preceptor. The faculty preceptor is aware and concurs with the plan as stated in the body of this note and will attest to such by his/her cosignature. ATTENDING NOTE I, Jhonny Tam, have independently examined this patient and performed my own physical exam, as well as reviewed the documentation and edited where necessary. I have discussed in detail with the resident / student the findings and plan of treatment as documented by the resident / student and edited their note. I agree with their findings and treatment plan and have edited their documentation. I will continue to follow the patient during this hospital stay. BLAISE CERNA MD Aug 09, 2020 11:18 JHONNY TAM MD Aug 09, 2020 17:03
[2020-08-09] MEDS ORDERED: COMBIVENT RESPIMAT 100-20MCG INHALER 4GM INH SCH (12:15)
[2020-08-09] MEDS: ADVAIR HFA 230/21MCG INHALER INH SCH ×2 (13:06→19:44)
[2020-08-09 13:08] LABS: ABG BASE EXCESS 1.9 (-2.0-2.0); ABG HCO3 24.5 MEQ/L (22.0-26.0); ABG O2 SATURATION 97.8 % (95.0-99.0); ABG PARTIAL PRESSURE CO2 32.1 mmHg (35.0-45.0); ABG STANDARD HCO3 26.2 MEQ/L (22.0-26.0); ABG TOTAL CO2 25.5 MEQ/L (23.0-31.0)
[2020-08-09] MEDS: methylPREDNISolone 125MG 2ML VIAL IV SCH (17:20)
[2020-08-09] MEDS: REMDESIVIR 100 MG in NS 250 ML IV SCH (20:13)
[2020-08-09] MEDS: SODIUM CHLORIDE 0.9% INJ 10 ML SYR IV SCH (22:20)
[2020-08-10] VITALS (7 sets, daily range): BP systolic 120–174; BP diastolic 64–84
[2020-08-10] MEDS: methylPREDNISolone 125MG 2ML VIAL IV SCH ×3 (01:02→17:28)
[2020-08-10 05:01] LABS: HEMATOCRIT 37.6 % (42.0-52.0); HEMOGLOBIN 12.4 g/dl (13.5-17.5); MEAN CORPUSCULAR HEMOGLOBIN 30.4 pg (27.0-33.0); MEAN CORPUSCULAR VOLUME 92.2 fl (80.0-96.0); PLATELET COUNT, AUTOMATED 355 10^3/uL (150-450); RED BLOOD COUNT 4.08 10^6/uL (4.30-6.10); WHITE BLOOD COUNT 4.8 10^3/uL (4.0-10.0)
[2020-08-10 05:13] LABS: INR 1.24; PROTHROMBIN TIME 15.8 SECONDS (12.5-14.3)
[2020-08-10 05:14] LABS: PARTIAL THROMBOPLASTIN TIME 40.3 SECONDS (24.2-38.5)
[2020-08-10 05:36] LABS: ALT/SGPT 24 U/L (12-78); BILIRUBIN,DIRECT < 0.1 MG/DL (0.0-0.2); BILIRUBIN,TOTAL 0.3 MG/DL (0.2-1.0); BLOOD UREA NITROGEN 42 MG/DL (7-18); C REACTIVE PROTEIN QUANTITATIV 8.43 MG/DL (0.00-0.30); CALCIUM LEVEL 8.5 MG/DL (8.8-10.2); CARBON DIOXIDE LEVEL 29 MEQ/L (21-32); CHLORIDE LEVEL 104 MEQ/L (98-107); FERRITIN 702 NG/ML (26-388); GLOMERULAR FILTRATION RATE > 60.0 (>49); GLUCOSE, FASTING 324 MG/DL (70-100); NT-PRO BNP 381 PG/ML (<125); POTASSIUM SERUM 4.5 MEQ/L (3.5-5.1); SODIUM LEVEL 139 MEQ/L (136-145); TOTAL PROTEIN 5.6 GM/DL (6.4-8.2)
[2020-08-10 05:48] LABS: ANISOCYTOSIS 1+; ATYPICAL LYMPH 10 % (0-5); LYMPHOCYTES 13 % (16-44); MONOCYTES 2 % (0-5); NEUTROPHILS 75 % (28-66); PLATELET ESTIMATE NORMAL (NORMAL)
[2020-08-10 05:49] LABS: POIKILOCYTOSIS 1+
[2020-08-10] MEDS: HumaLOG INSULIN (NovoLOG) PER UNIT SC SCH ×4 (08:11→21:03)
[2020-08-10] MEDS: ENOXAPARIN 100MG/1ML SYRINGE (J1650 PER 10MG) SC SCH ×2 (08:11→20:56)
[2020-08-10] MEDS: ATORVASTATIN 20 MG TAB PO SCH (08:12)
[2020-08-10] MEDS: PREGABALIN 100 MG CAP (LYRICA) PO SCH (08:12)
[2020-08-10] MEDS: LOSARTAN 50MG TABLET PO SCH (08:12)
[2020-08-10] MEDS: amLODIPine 5 MG TAB PO SCH (08:12)
[2020-08-10] MEDS: PANTOPRAZOLE 20 MG TAB PO SCH (08:12)
[2020-08-10] MEDS: ADVAIR HFA 230/21MCG INHALER INH SCH ×2 (08:34→19:57)
[2020-08-10] MEDS: LEVEMIR (INSULIN DETEMIR) 1 UNITS/0.01ML SC SCH ×2 (09:05→21:02)
--- NOTE | 2020-08-10 11:17 | IPNPDOC ---
Date Seen The patient was seen on 08/10/20. Progress Note SUBJECTIVE: Kvng was seen and examined at the bedside in the ICU this morning. He was transferred to the ICU yesterday afternoon for the use of CPAP because he was requiring the maximum amount of oxygen on Vapotherm. Nursing reports he did well on CPAP overnight. He is currently saturating 95% on CPAP pressure 10 at 70% FiO2. He reports he is coughing but not producing any sputum. He denies any worsened shortness of breath, nausea/vomiting/diarrhea. He requests a stool softener as he has not had a bowel movement in 2 days. Otherwise no complaints today and no issues reported by nursing. OBJECTIVE PHYSICAL EXAMINATION: VITAL SIGNS: see below GENERAL: alert and oriented, in no apparent distress, pleasant and conversant in full sentences, laying flat in bed, appears somewhat disheveled. HEENT: PERRL, EOMI, Oral mucous membranes are moist without lesions. NECK: The patient has no noted JVD. No adenopathy is appreciated. No thyromegaly CHEST/LUNGS: Lungs are clear bilaterally with some scattered wheezes. There is no subcutaneous air appreciated. There is no tenderness to the chest wall. HEART: Regular rate and rhythm. No murmurs, rubs, or gallops are appreciated. Distal pulses are 2+. No carotid bruits appreciated. ABDOMEN: Obese, Soft, nontender, and nondistended. Bowel sounds are positive. No organomegaly is appreciated. No masses are appreciated. There are no peritoneal signs. There is no Sumrall sign. EXTREMITIES: No peripheral edema. There is no focal long bone tenderness or deformity. SKIN: The patients skin is warm and dry, without rashes or lesions. PSYCHIATRIC: AAO x 3, normal mood/affect NEUROLOGIC: The patient has 5/5 strength to the upper and lower extremities bilaterally. Sensation is intact throughout. Deep tendon reflexes are 2+ in all four extremities. There are no deficits to the cranial nerves. LABORATORY DATA, IMAGING STUDIES, MICROBIOLOGY: Please see below. Echocardiogram: None ASSESSMENT AND PLAN: This is a 65-year-old male with history of insulin- dependent diabetes mellitus, CAD, history of A. fib, chronic systolic congestive heart failure, current smoker with COPD presenting with acute hypoxic respiratory failure found to have Covid 19 pneumonia. PROBLEMS: 1. Acute hypoxic respiratory failure secondary to COVID19 pneumonia: -Continue Remdesivir, currently day 6 -Status post dexamethasone 5 days. Switched to IV Solu-Medrol 60 mg every 8 hours as history of COPD likely contributing to hypoxia -Inflammatory markers: Ferritin down to 702, CRP slightly up to 8.43, BNP down to 381, fibrinogen slightly up to 523 -Continue Combivent inhaler as needed for shortness of breath, Advair inhaler -Encourage use of incentive spirometer, proning 2. Superimposed community-acquired bacterial pneumonia: -s/p 5 days of cefepime -Pro calcitonin low at 0.05 3. Insulin-dependent diabetes mellitus: The patient does have history of freque nt episodes of DKA -Levemir 30 units increased to 40 units twice a day due to blood sugars in the 300s -Continue sliding scale insulin with hypoglycemic protocol 4. Chronic atrial fibrillation: -Home Eliquis stopped as patient was put on full dose Lovenox due to DVT at the lower left extremity 5. Recent DVT in left lower extremity: -Doppler ultrasound ordered shows presence of DVT. The patient apparently stopped taking his anticoagulation at home. -Continue weight-based treatment dose of Lovenox, 100 mg twice daily 6. History of CAD: -Patient has an allergy to aspirin -Continue Lipitor 7. Hypertension: -Continue amlodipine -Home dose of Losartan restarted due to elevated blood pressures. 8. CKD3: -stable. Cr 1.2 9. Current daily smoker, with COPD: -Nicotine patch ordered as needed 10. History of diabetic neuropathy: -Continue Lyrica GI prophylaxis: IV Protonix daily DVT prophylaxis ordered?: Lovenox weight-based treatment dose 100 mg every 12 hours DISPOSITION: - Pending improvement in oxygenation VS, I&O, [facility] Vital Signs/I&O Vital Signs Date Time Temp Pulse Resp B/P (MAP) Pulse Ox O2 Delivery O2 Flow Rate FiO2 08/10/20 07:00 54 95 NIPPV (BIPAP/CPAP) 70 08/10/20 06:00 20 08/10/20 04:00 97.3 148/65 (92) 08/09/20 16:00 40.0 I&O- Last 24 Hours up to 6 AM 08/10/20 05:59 Intake Total 870 ml Output Total 2125 ml Balance -1255 ml Laboratory Data 24H LABS Laboratory Tests 2 08/09/20 08:18: Neutrophils (%) (Auto) , Nucleated Red Blood Cells % (auto) 0.0, Neutrophils 70H, Band Neutrophils 2, Lymphocytes (Manual) 17, Monocytes (Manual) 6H, Eosinophils (Manual) 1, Atypical Lymphocytes 4, Platelet Estimate NORMAL, Prothrombin Time 14.6H, Prothromb Time International Ratio 1.11, Activated Partial Thromboplast Time 44.4H, Fibrinogen 489H, Anion Gap 6L, Glomerular Filtration Rate > 60.0, Calcium Level 8.3L, Magnesium Level 1.8, Ferritin 740H, Total Bilirubin 0.4, Direct Bilirubin 0.2, Aspartate Amino Transf (AST/SGOT) 24, Alanine Aminotransferase (ALT/SGPT) 25, Alkaline Phosphatase 60, C-Reactive Protein, Quantitative 5.63H, PF-Pzd-Q-Type Natriuretic Peptide 652H, Total Prot ein 5.6L, Albumin 2.1L, Albumin/Globulin Ratio 0.6, Procalcitonin <0.05 08/09/20 11:49: Blood Gas Bicarbonate Standard 26.2H, Arterial Blood pH 7.500H, Arterial Blood Partial Pressure CO2 32.1L, Arterial Blood Partial Pressure O2 94.0, Arterial Blood Total CO2 25.5, Arterial Blood HCO3 24.5, Arterial Blood Base Excess 1.9, Arterial Blood Oxygen Saturation 97.8 08/09/20 12:06: Bedside Glucose (Misc Panel) 315H 08/09/20 16:31: Bedside Glucose (Misc Panel) 390H 08/09/20 19:59: Bedside Glucose (Misc Panel) 424H 08/10/20 04:31: Neutrophils (%) (Auto) , Nucleated Red Blood Cells % (auto) 0.0, Neutrophils 75H, Lymphocytes (Manual) 13L, Monocytes (Manual) 2, Atypical Lymphocytes 10H, Poikilocytosis 1+, Anisocytosis 1+, Platelet Estimate NORMAL, Prothrombin Time 15.8H, Prothromb Time International Ratio 1.24, Activated Partial Thromboplast Time 40.3H, Fibrinogen 523H, Anion Gap 6L, Glomerular Filtration Rate > 60.0, Calcium Level 8.5L, Magnesium Level 2.0, Ferritin 702H, Total Bilirubin 0.3, Direct Bilirubin < 0.1, Aspartate Amino Transf (AST/SGOT) 19, Alanine Aminotransferase (ALT/SGPT) 24, Alkaline Phosphatase 60, C-Reactive Protein, Quantitative 8.43H, BD-Xqg-N-Type Natriuretic Peptide 381H, Total Protein 5.6L, Albumin 2.0L, Albumin/Globulin Ratio 0.6 CBC/BMP Laboratory Tests 08/09/20 08:18 08/10/20 04:31 Microbiology Microbiology 08/04/20 Blood Culture - Final, Complete NO GROWTH AFTER 5 DAYS 08/03/20 Respiratory Virus Panel (PCR) (MEGA) - Final, Complete 08/03/20 Blood Culture - Final, Complete NO GROWTH AFTER 5 DAYS GME ATTESTATION GME ATTESTATION My faculty preceptor for this patient encounter was physically present during the encounter and was fully available. All aspects of the patient interview, examination, medical decision making process, and medical care plan development were reviewed and approved by the faculty preceptor. The faculty preceptor is aware and concurs with the plan as stated in the body of this note and will attest to such by his/her cosignature. ATTENDING NOTE I, Jhonny Tam, have independently examined this patient and performed my own physical exam, as well as reviewed the documentation and edited where necessary. I have discussed in detail with the resident / student the findings and plan of treatment as documented by the resident / student and edited their note. I agree with their findings and treatment plan and have edited their documentation. I will continue to follow the patient during this hospital stay. BLAISE CERNA MD Aug 10, 2020 08:09 JHONNY TAM MD Aug 10, 2020 16:29
[2020-08-11] VITALS (11 sets, daily range): BP systolic 122–206; BP diastolic 58–92; O2SAT 92–99
[2020-08-11] MEDS: methylPREDNISolone 125MG 2ML VIAL IV SCH ×2 (01:08→08:22)
[2020-08-11 05:58] LABS: C REACTIVE PROTEIN QUANTITATIV 4.29 MG/DL (0.00-0.30)
[2020-08-11 07:39] LABS: HEMATOCRIT 36.3 % (42.0-52.0); HEMOGLOBIN 11.7 g/dl (13.5-17.5); MEAN CORPUSCULAR HEMOGLOBIN 29.8 pg (27.0-33.0); MEAN CORPUSCULAR HGB CONC 32.2 g/dl (32.0-36.5); MEAN CORPUSCULAR VOLUME 92.6 fl (80.0-96.0); PLATELET COUNT, AUTOMATED 356 10^3/uL (150-450); RED BLOOD COUNT 3.92 10^6/uL (4.30-6.10)
[2020-08-11 07:51] LABS: ALBUMIN 1.9 GM/DL (3.2-5.2); BILIRUBIN,TOTAL 0.3 MG/DL (0.2-1.0); CALCIUM LEVEL 8.4 MG/DL (8.8-10.2); CREATININE FOR GFR 1.36 MG/DL (0.70-1.30); GLOMERULAR FILTRATION RATE 55.6 (>49); MAGNESIUM LEVEL 2.1 MG/DL (1.8-2.4); POTASSIUM SERUM 3.9 MEQ/L (3.5-5.1); TOTAL PROTEIN 5.8 GM/DL (6.4-8.2)
[2020-08-11] MEDS: ADVAIR HFA 230/21MCG INHALER INH SCH ×2 (08:00→21:15)
[2020-08-11] MEDS: PANTOPRAZOLE 20 MG TAB PO SCH (08:20)
[2020-08-11] MEDS: LOSARTAN 50MG TABLET PO SCH (08:20)
[2020-08-11] MEDS: PREGABALIN 100 MG CAP (LYRICA) PO SCH (08:20)
[2020-08-11] MEDS: ATORVASTATIN 20 MG TAB PO SCH (08:21)
[2020-08-11] MEDS: amLODIPine 5 MG TAB PO SCH (08:21)
[2020-08-11] MEDS: LEVEMIR (INSULIN DETEMIR) 1 UNITS/0.01ML SC SCH (08:22)
[2020-08-11] MEDS: ENOXAPARIN 100MG/1ML SYRINGE (J1650 PER 10MG) SC SCH ×2 (08:23→20:41)
[2020-08-11] MEDS: HumaLOG INSULIN (NovoLOG) PER UNIT SC SCH ×4 (08:23→21:00)
[2020-08-11 09:13] LABS: ATYPICAL LYMPH 1 % (0-5); LYMPHOCYTES 8 % (16-44); MONOCYTES 3 % (0-5); NEUTROPHILS 87 % (28-66); PLATELET ESTIMATE NORMAL (NORMAL)
[2020-08-11] MEDS: ACETAMINOPHEN TAB 650MG DOSE (2X325MG) PO PRN (11:02)
[2020-08-11] MEDS: NICOTINE 21MG/24HR 1 EA TRANSDERMAL TD PRN (12:45)
--- NOTE | 2020-08-11 13:07 | IPNPDOC ---
Text Note Date of Service The patient was seen on 08/11/20. NOTE Subjective: Patient is a 65-year-old male with a PMHx of CAD, HTN, A. fib, Systolic CHF, IDDM2, COPD, Nicotine dependence , who presented to the emergency room with complaints of shortness of breath for 3 days. He was admitted to the hospital service for further evaluation and treatment. Patient had initially tested negative for COVID19 on 08/03 and 08/04; but had tested COVID19 positive (08/05). Patient was initially on the COVID unit; However was requiring higher amounts of FiO2 on Vapotherm and was transitioned to the ICU for CPAP therapy. Patient was seen and examined at the bedside. Patient reports that they have felt better since they have been on CPAP. They deny any chest pain or palpitations. They still report a productive cough with thick white sputum. They deny any nausea, vomiting, abdominal pain, diarrhea, or urinary discomfort. Objective: Vitals (See below) General: Sitting up in bed, appears to be comfortable, AAOx3 HEENT: NC, AT CVS: +S1S2 Lungs: Fair air entry b/l, no appreciable wheezing, rhonchi or rales Abdomen: Soft, nondistended and nontender Extremities: No evidence of edema, - Calf tenderness Assessment and plan: Acute hypoxic respiratory failure - likely 2/2 COVID19 pneumonia; less likely 2/2 superimposed bacterial infection - Patient has felt better while on CPAP - Inflammatory markers are improving - Symptom onset 08/01; COVID19 positive on 08/05 - Imaging noted above - s/p Cefepime (5 day course); PCT trending up; will start Levofloxacin - c/w Corticosteroids (Solumedrol); s/p Dexamethasone - c/w incentive spirometry and symptomatic control Acute on Chronic COPD - No appreciable wheezing - See above - Continue with inhaled therapy as ordered IDDM2 - Patient has frequent episodes of DKA - c/w ISS and Levemir HTN - BP well controlled - c/w Losartan and Amlodipine Chronic atrial fibrillation - c/w full anticoagulation Recent DVT in left lower extremity - Duplex US 08/05: Left lower extremity deep venous thrombosis - c/w full anticoagulation CAD - c/w Atorvastatin - ASA allergy CKD3 - Cr baseline of 1.2-1.4 - Cr within baseline currently Nicotine dependence - c/w Nicotine patch Diabetic neuropathy - c/w Pregabalin GI prophylaxis - c/w Protonix DVT prophylaxis - c/w Lovenox weight-based therapeutic dosing Disposition: - Awaiting clinical improvement Abhinav TROY, I+O VSAbhinav I+O Laboratory Tests 08/11/20 04:57 Vital Signs Date Time Temp Pulse Resp B/P (MAP) Pulse Ox O2 Delivery O2 Flow Rate FiO2 08/11/20 10:00 97.7 72 24 154/72 (99) 86 HVNI-Vapotherm 40.0 100 I&O- Last 24 Hours up to 6 AM 08/11/20 05:59 Intake Total 1580 ml Output Total 1700 ml Balance -120 ml JOSEE TAM MD Aug 11, 2020 13:07
[2020-08-11] MEDS: LevoFLOXacin 500 MG TABLET PO SCH (15:07)
[2020-08-11] MEDS ORDERED: HumaLOG INSULIN (NovoLOG) PER UNIT SC ONE (18:00)
[2020-08-11] MEDS ORDERED: COMBIVENT RESPIMAT 100-20MCG INHALER 4GM INH PRN (18:00)
[2020-08-11] MEDS ORDERED: COMBIVENT RESPIMAT 100-20MCG INHALER 4GM INH SCH (20:00)
[2020-08-11] MEDS: guaiFENesin ER 600 MG TAB PO SCH (20:24)
[2020-08-11] MEDS: SENOKOT S TAB PO PRN (20:25)
[2020-08-11] MEDS ORDERED: methylPREDNISolone 40MG 1ML VIAL IV SCH (21:00)
[2020-08-11] MEDS ORDERED: LEVEMIR (INSULIN DETEMIR) 1 UNITS/0.01ML SC ONE (21:00)
[2020-08-11] MEDS ORDERED: HumaLOG INSULIN (NovoLOG) PER UNIT SC STA (21:19)
[2020-08-12] VITALS: BP 156/68; O2SAT 91
[2020-08-12 00:21] VITALS: O2SAT 88
[2020-08-12 04:00] VITALS: BP 164/74; O2SAT 91
[2020-08-12 04:29] LABS: BASO % 0.2 % (0.0-1.0); HEMATOCRIT 37.4 % (42.0-52.0); HEMOGLOBIN 12.2 g/dl (13.5-17.5); LYMPH # 0.9 10^3/uL (1.5-5.0); LYMPH % 8.6 % (24.0-44.0); MEAN CORPUSCULAR HEMOGLOBIN 29.9 pg (27.0-33.0); MEAN CORPUSCULAR HGB CONC 32.6 g/dl (32.0-36.5); MEAN CORPUSCULAR VOLUME 91.7 fl (80.0-96.0); MONO # 0.6 10^3/uL (0.0-0.8); MONO % 6.3 % (0.0-5.0); NEUTROPHILS # 8.5 10^3/uL (1.5-8.5); NEUTROPHILS % 83.5 % (36.0-66.0); PLATELET COUNT, AUTOMATED 370 10^3/uL (150-450); RED BLOOD COUNT 4.08 10^6/uL (4.30-6.10); WHITE BLOOD COUNT 10.2 10^3/uL (4.0-10.0)
[2020-08-12 04:47] LABS: D-DIMER QUANT 1374.9 ng/ml (<500)
[2020-08-12 05:00] LABS: BILIRUBIN,TOTAL 0.3 MG/DL (0.2-1.0); C REACTIVE PROTEIN QUANTITATIV 2.46 MG/DL (0.00-0.30); CALCIUM LEVEL 8.3 MG/DL (8.8-10.2); CREATININE FOR GFR 1.36 MG/DL (0.70-1.30); GLOMERULAR FILTRATION RATE 55.6 (>49); MAGNESIUM LEVEL 1.8 MG/DL (1.8-2.4); POTASSIUM SERUM 3.8 MEQ/L (3.5-5.1); TOTAL PROTEIN 5.8 GM/DL (6.4-8.2)
[2020-08-12] MEDS: LevoFLOXacin 500 MG TABLET PO SCH (05:36)
[2020-08-12 08:00] VITALS: BP 159/74
[2020-08-12] MEDS: HumaLOG INSULIN (NovoLOG) PER UNIT SC SCH ×4 (08:14→20:51)
[2020-08-12] MEDS: ADVAIR HFA 230/21MCG INHALER INH SCH ×2 (09:13→20:56)
[2020-08-12] MEDS: ENOXAPARIN 100MG/1ML SYRINGE (J1650 PER 10MG) SC SCH ×2 (09:35→20:52)
[2020-08-12] MEDS: ATORVASTATIN 20 MG TAB PO SCH (09:36)
[2020-08-12] MEDS: guaiFENesin ER 600 MG TAB PO SCH ×2 (09:36→20:52)
[2020-08-12] MEDS: LEVEMIR (INSULIN DETEMIR) 1 UNITS/0.01ML SC SCH ×2 (09:36→20:52)
[2020-08-12] MEDS: NICOTINE 21MG/24HR 1 EA TRANSDERMAL TD PRN (09:36)
[2020-08-12] MEDS: LOSARTAN 50MG TABLET PO SCH (09:37)
[2020-08-12] MEDS: amLODIPine 5 MG TAB PO SCH (09:38)
[2020-08-12] MEDS: PANTOPRAZOLE 20 MG TAB PO SCH (09:38)
[2020-08-12] MEDS: PREGABALIN 100 MG CAP (LYRICA) PO SCH (09:39)
--- NOTE | 2020-08-12 11:17 | IPNPDOC ---
Text Note Date of Service The patient was seen on 08/12/20. NOTE Subjective: Patient is a 65-year-old male with a PMHx of CAD, HTN, A. fib, Systolic CHF, IDDM2, COPD, Nicotine dependence , who presented to the emergency room with complaints of shortness of breath for 3 days. He was admitted to the hospital service for further evaluation and treatment. Patient had initially tested negative for COVID19 on 08/03 and 08/04; but had tested COVID19 positive (08/05). Patient was initially on the COVID unit; However was requiring higher amounts of FiO2 on Vapotherm and was transitioned to the ICU for CPAP therapy. Patient was seen and examined at the bedside. Currently is doing better sitting up in bed. Denies any chest pain, or palpitations. Reports improvement of his shortness of breath. Reports a cough - thick clear sputum. Denies any abdominal pain, diarrhea, or urinary discomfort. Objective: Vitals (See below) General: Sitting up in bed, appears to be comfortable, AAOx3 HEENT: NC, AT CVS: +S1S2 Lungs: Fair air entry b/l, no appreciable wheezing, rhonchi or rales Abdomen: Soft, nondistended and nontender Extremities: No evidence of edema, - Calf tenderness Assessment and plan: Acute hypoxic respiratory failure - likely 2/2 COVID19 pneumonia; less likely 2/2 superimposed bacterial infection - Patient has felt better while on CPAP; will continue with Vapotherm therapy during the day - Physical without any wheezing noted - Inflammatory markers are improving - Symptom onset 08/01; COVID19 positive on 08/05 - Imaging noted above - c/w Levofloxacin (Day #2); s/p Cefepime (5 day course) - will follow procalcitonin - Will discontinue Corticosteroids (Solumedrol); s/p Dexamethasone - c/w incentive spirometry and symptomatic control Chronic COPD - No appreciable wheezing - See above - Continue with inhaled therapy as ordered IDDM2 - Patient has frequent episodes of DKA - c/w ISS and Levemir HTN - BP well controlled - c/w Losartan and Amlodipine Chronic atrial fibrillation - c/w full anticoagulation Recent DVT in left lower extremity - Duplex US 08/05: Left lower extremity deep venous thrombosis - c/w full anticoagulation CAD - c/w Atorvastatin - ASA allergy CKD3 - Cr baseline of 1.2-1.4 - Cr within baseline currently Nicotine dependence - c/w Nicotine patch Diabetic neuropathy - c/w Pregabalin GI prophylaxis - c/w Protonix DVT prophylaxis - c/w Lovenox weight-based therapeutic dosing Disposition: - Awaiting clinical improvement VS,Junbone, I+O VS, Junbone, I+O Laboratory Tests 08/12/20 03:59 Vital Signs Date Time Temp Pulse Resp B/P (MAP) Pulse Ox O2 Delivery O2 Flow Rate FiO2 08/12/20 09:38 75 159/74 08/12/20 09:05 88 HVNI-Vapotherm 40.0 100 08/12/20 04:00 97.1 21 I&O- Last 24 Hours up to 6 AM 08/12/20 06:00 Intake Total 4350 ml Output Total 3730 ml Balance 620 ml JOSEE TAM MD Aug 12, 2020 11:17
[2020-08-12 16:00] VITALS: BP 132/64
[2020-08-12 20:58] VITALS: BP 149/66
[2020-08-13] VITALS (9 sets, daily range): BP systolic 141–197; BP diastolic 65–82
[2020-08-13] MEDS: LevoFLOXacin 500 MG TABLET PO SCH (05:07)
[2020-08-13 05:10] LABS: BASO % 0.3 % (0.0-1.0); EOS # 0.2 10^3/uL (0.0-0.5); EOS % 1.3 % (0.0-3.0); HEMATOCRIT 37.9 % (42.0-52.0); HEMOGLOBIN 12.3 g/dl (13.5-17.5); LYMPH # 1.3 10^3/uL (1.5-5.0); LYMPH % 10.3 % (24.0-44.0); MEAN CORPUSCULAR HEMOGLOBIN 29.6 pg (27.0-33.0); MEAN CORPUSCULAR HGB CONC 32.5 g/dl (32.0-36.5); MEAN CORPUSCULAR VOLUME 91.3 fl (80.0-96.0); MONO # 0.5 10^3/uL (0.0-0.8); MONO % 4.3 % (0.0-5.0); NEUTROPHILS # 10.3 10^3/uL (1.5-8.5); NEUTROPHILS % 82.2 % (36.0-66.0); PLATELET COUNT, AUTOMATED 313 10^3/uL (150-450); RED BLOOD COUNT 4.15 10^6/uL (4.30-6.10); WHITE BLOOD COUNT 12.5 10^3/uL (4.0-10.0)
[2020-08-13 05:23] LABS: D-DIMER QUANT 3212.53 ng/ml (<500)
[2020-08-13] MEDS: LOSARTAN 50MG TABLET PO SCH (05:24)
[2020-08-13 05:34] LABS: ALBUMIN 1.8 GM/DL (3.2-5.2); ALT/SGPT 27 U/L (12-78); BILIRUBIN,TOTAL 0.4 MG/DL (0.2-1.0); BLOOD UREA NITROGEN 38 MG/DL (7-18); C REACTIVE PROTEIN QUANTITATIV 3.69 MG/DL (0.00-0.30); CALCIUM LEVEL 8.4 MG/DL (8.8-10.2); CARBON DIOXIDE LEVEL 28 MEQ/L (21-32); CHLORIDE LEVEL 106 MEQ/L (98-107); CREATININE FOR GFR 1.22 MG/DL (0.70-1.30); FERRITIN 719 NG/ML (26-388); GLOMERULAR FILTRATION RATE > 60.0 (>49); GLUCOSE, FASTING 264 MG/DL (70-100); MAGNESIUM LEVEL 1.6 MG/DL (1.8-2.4); NT-PRO BNP 494 PG/ML (<125); POTASSIUM SERUM 3.9 MEQ/L (3.5-5.1); SODIUM LEVEL 141 MEQ/L (136-145); TOTAL PROTEIN 5.3 GM/DL (6.4-8.2)
[2020-08-13] MEDS: ADVAIR HFA 230/21MCG INHALER INH SCH ×2 (09:13→20:05)
[2020-08-13] MEDS: HumaLOG INSULIN (NovoLOG) PER UNIT SC SCH ×4 (09:42→20:59)
[2020-08-13] MEDS: guaiFENesin ER 600 MG TAB PO SCH ×2 (09:43→20:58)
[2020-08-13] MEDS: ATORVASTATIN 20 MG TAB PO SCH (09:43)
[2020-08-13] MEDS: ENOXAPARIN 100MG/1ML SYRINGE (J1650 PER 10MG) SC SCH ×2 (09:43→20:59)
[2020-08-13] MEDS: LEVEMIR (INSULIN DETEMIR) 1 UNITS/0.01ML SC SCH ×2 (09:43→20:59)
[2020-08-13] MEDS: PREGABALIN 100 MG CAP (LYRICA) PO SCH (09:43)
[2020-08-13] MEDS: PANTOPRAZOLE 20 MG TAB PO SCH (09:43)
[2020-08-13] MEDS: amLODIPine 5 MG TAB PO SCH (09:45)
--- NOTE | 2020-08-13 11:26 | IPNPDOC ---
Date Seen The patient was seen on 08/13/20. Progress Note SUBJECTIVE: 65-year-old male with a PMHx of CAD, HTN, A. fib, Systolic CHF, IDDM2, COPD, Nicotine dependence , who presented to the emergency room with complaints of shortness of breath for 3 days. he was tested negative for covid twice (08/03 and 08/04) but tested positive for COVID19 on 08/05. He required higher levels of O2 and was upgraded to ICU for CPAP therapy. Patient seen at bedside this morning, d/w RN. Patient is AAO x 3, has no acute complaints. Robyn urine. Per RN, has had some confusion, but per his partner, has been having these issues on and off for past several months, they suspect underlying dementia. OBJECTIVE PHYSICAL EXAMINATION: VITAL SIGNS: please see below General: NAD, comfortable HEENT: PERRLA, EOMI, sclerae clear Neck: supple, normal ROM, no JVD Respiratory: lungs CTAB, no wheeze, no rales, no crackles CVS: RRR, normal S1, S2, no murmurs Abdo: soft, no masses, no hepatosplenomegaly, BS+, no rebound tenderness Extremities: no edema, pulses 2+ MSK: no joint deformities, normal ROM Neuro: no focal neuro deficits, moving all 4 extremities, CN2-12 intact. Strength 5/5 in all 4 extremities. No nystagmus. Psych: calm, cooperative, AAO x 3 LABORATORY DATA, IMAGING STUDIES, MICROBIOLOGY: Please see below. DVT prophylaxis ordered?: Lovenox 1 mg/kg q12h for treatment of DVT ASSESSMENT AND PLAN: Acute hypoxic respiratory failure - likely 2/2 COVID19 pneumonia; less likely 2/2 superimposed bacterial infection - Patient has felt better while on CPAP; will continue with Vapotherm therapy during the day - Physical without any wheezing noted - Inflammatory markers labile - Symptom onset 08/01; COVID19 positive on 08/05 - Imaging noted above - c/w Levofloxacin (Day #3); s/p Cefepime (5 day course) - will follow procalcitonin - stopped Corticosteroids (Solumedrol) on 08/12/20; s/p Dexamethasone - c/w incentive spirometry and symptomatic control Chronic COPD - No appreciable wheezing - See above - Continue with inhaled therapy as ordered IDDM2 - Patient has frequent episodes of DKA - c/w ISS and Levemir HTN - BP well controlled - c/w Losartan and Amlodipine Chronic atrial fibrillation - c/w full anticoagulation Recent DVT in left lower extremity - Duplex US 08/05: Left lower extremity deep venous thrombosis - c/w full anticoagulation CAD - c/w Atorvastatin - ASA allergy CKD3 - Cr baseline of 1.2-1.4 - Cr within baseline currently Nicotine dependence - c/w Nicotine patch Diabetic neuropathy - c/w Pregabalin GI prophylaxis - c/w Protonix DVT prophylaxis - c/w Lovenox weight-based therapeutic dosing VS, I&O, 24H, Fishbone Vital Signs/I&O Vital Signs Date Time Temp Pulse Resp B/P (MAP) Pulse Ox O2 Delivery O2 Flow Rate FiO2 08/13/20 11:00 80 24 97 HVNI-Vapotherm 40.0 100 08/13/20 09:45 154/73 08/13/20 08:00 98.2 I&O- Last 24 Hours up to 6 AM 08/13/20 06:00 Intake Total 2935 ml Output Total 2975 ml Balance -40 ml Laboratory Data 24H LABS Laboratory Tests 2 08/12/20 12:20: Bedside Glucose (Misc Panel) 356H 08/12/20 17:20: Bedside Glucose (Misc Panel) 389H 08/12/20 20:49: Bedside Glucose (Misc Panel) 394H 08/13/20 04:20: Immature Granulocyte % (Auto) 1.6, Neutrophils (%) (Auto) 82.2H, Lymphocytes (%) (Auto) 10.3L, Monocytes (%) (Auto) 4.3, Eosinophils (%) (Auto) 1.3, Basophils (%) (Auto) 0.3, Neutrophils # (Auto) 10.3H, Lymphocytes # (Auto) 1.3L, Monocytes # (Auto) 0.5, Eosinophils # (Auto) 0.2, Basophils # (Auto) 0.0, Nucleated Red Blood Cells % (auto) 0.0, Fibrinogen 412, D-Dimer, Quantitative 3212.53H, Anion Gap 7L, Glomerular Filtration Rate > 60.0, Calcium Level 8.4L, Magnesium Level 1.6L, Ferritin 719H, Total Bilirubin 0.4, Aspartate Amino Transf (AST/SGOT) 17, Alanine Aminotransferase (ALT/SGPT) 27, Alkaline Phosphatase 72, C-Reactive Protein, Quantitative 3.69H, WC-Pei-D-Type Natriuretic Peptide 494H, Total Protein 5.3L, Albumin 1.8L, Albumin/Globulin Ratio 0.5 CBC/BMP Laboratory Tests 08/13/20 04:20 Microbiology Microbiology 08/04/20 Blood Culture - Final, Complete NO GROWTH AFTER 5 DAYS 08/03/20 Respiratory Virus Panel (PCR) (MEGA) - Final, Complete 08/03/20 Blood Culture - Final, Complete NO GROWTH AFTER 5 DAYS ADOLFO CORDOVA MD Aug 13, 2020 11:26
[2020-08-13] MEDS: NICOTINE 21MG/24HR 1 EA TRANSDERMAL TD PRN (16:49)
[2020-08-13] MEDS: **hydrALAZINE** 50 MG TAB PO SCH (22:10)
[2020-08-13] MEDS ORDERED: hydrOXYzine 25 MG TAB PO PRN (22:45)
[2020-08-14] VITALS (19 sets, daily range): BP systolic 83–167; BP diastolic 60–115
[2020-08-14 05:28] LABS: BASO % 0.2 % (0.0-1.0); EOS # 0.3 10^3/uL (0.0-0.5); EOS % 2.4 % (0.0-3.0); HEMATOCRIT 36.8 % (42.0-52.0); LYMPH # 1.4 10^3/uL (1.5-5.0); LYMPH % 11.7 % (24.0-44.0); MEAN CORPUSCULAR HEMOGLOBIN 29.7 pg (27.0-33.0); MEAN CORPUSCULAR HGB CONC 32.6 g/dl (32.0-36.5); MEAN CORPUSCULAR VOLUME 91.1 fl (80.0-96.0); MONO # 0.4 10^3/uL (0.0-0.8); MONO % 2.8 % (0.0-5.0); NEUTROPHILS # 10.1 10^3/uL (1.5-8.5); NEUTROPHILS % 81.8 % (36.0-66.0); PLATELET COUNT, AUTOMATED 233 10^3/uL (150-450); RED BLOOD COUNT 4.04 10^6/uL (4.30-6.10); WHITE BLOOD COUNT 12.3 10^3/uL (4.0-10.0)
[2020-08-14 05:48] LABS: D-DIMER QUANT 3324.17 ng/ml (<500)
[2020-08-14 06:00] LABS: ALBUMIN 1.6 GM/DL (3.2-5.2); ALT/SGPT 20 U/L (12-78); BILIRUBIN,TOTAL 0.5 MG/DL (0.2-1.0); BLOOD UREA NITROGEN 32 MG/DL (7-18); CALCIUM LEVEL 8.1 MG/DL (8.8-10.2); CARBON DIOXIDE LEVEL 30 MEQ/L (21-32); CHLORIDE LEVEL 106 MEQ/L (98-107); CREATININE FOR GFR 1.04 MG/DL (0.70-1.30); FERRITIN 844 NG/ML (26-388); GLOMERULAR FILTRATION RATE > 60.0 (>49); GLUCOSE, FASTING 135 MG/DL (70-100); MAGNESIUM LEVEL 1.6 MG/DL (1.8-2.4); NT-PRO BNP 533 PG/ML (<125); POTASSIUM SERUM 3.4 MEQ/L (3.5-5.1); SODIUM LEVEL 141 MEQ/L (136-145)
[2020-08-14] MEDS: LevoFLOXacin 500 MG TABLET PO SCH (06:15)
[2020-08-14] MEDS: HumaLOG INSULIN (NovoLOG) PER UNIT SC SCH ×4 (07:30→20:30)
[2020-08-14] MEDS: ADVAIR HFA 230/21MCG INHALER INH SCH ×2 (08:00→19:28)
[2020-08-14] MEDS: LEVEMIR (INSULIN DETEMIR) 1 UNITS/0.01ML SC SCH (08:25)
[2020-08-14] MEDS: ENOXAPARIN 100MG/1ML SYRINGE (J1650 PER 10MG) SC SCH ×2 (08:26→20:34)
[2020-08-14] MEDS: guaiFENesin ER 600 MG TAB PO SCH ×2 (08:28→20:33)
[2020-08-14] MEDS: PREGABALIN 100 MG CAP (LYRICA) PO SCH (08:28)
[2020-08-14] MEDS: PANTOPRAZOLE 20 MG TAB PO SCH (08:28)
[2020-08-14] MEDS: amLODIPine 5 MG TAB PO SCH (08:29)
[2020-08-14] MEDS: **hydrALAZINE** 50 MG TAB PO SCH ×2 (08:29→20:33)
[2020-08-14] MEDS: LOSARTAN 50MG TABLET PO SCH (08:30)
[2020-08-14] MEDS: ATORVASTATIN 20 MG TAB PO SCH (08:30)
--- NOTE | 2020-08-14 09:22 | IPNPDOC ---
Date Seen The patient was seen on 08/14/20. Progress Note SUBJECTIVE: 65-year-old male with a PMHx of CAD, HTN, A. fib, Systolic CHF, IDDM2, COPD, Nicotine dependence , who presented to the emergency room with complaints of shortness of breath for 3 days. he was tested negative for covid twice (08/03 and 08/04) but tested positive for COVID19 on 08/05. He required higher levels of O2 and was upgraded to ICU for CPAP therapy. Patient seen at bedside this morning, d/w RN. Patient is slightly confused, but otherwise alert to person and place. Per RN, has had some confusion, but per his partner, has been having these issues on and off for past several months, they suspect underlying dementia. Noted to be hypoglycemic this morning to 72. He is on max vapotherm and is desaturating to 79%, requires CPAP. OBJECTIVE PHYSICAL EXAMINATION: VITAL SIGNS: please see below General: NAD, comfortable HEENT: PERRLA, EOMI, sclerae clear Neck: supple, normal ROM, no JVD Respiratory: lungs CTAB, no wheeze, no rales, no crackles CVS: RRR, normal S1, S2, no murmurs Abdo: soft, no masses, no hepatosplenomegaly, BS+, no rebound tenderness Extremities: no edema, pulses 2+ MSK: no joint deformities, normal ROM Neuro: no focal neuro deficits, moving all 4 extremities, CN2-12 intact. Strength 5/5 in all 4 extremities. No nystagmus. Psych: calm, cooperative, AAO x 3 LABORATORY DATA, IMAGING STUDIES, MICROBIOLOGY: Please see below. DVT prophylaxis ordered?: Lovenox 1 mg/kg q12h for treatment of DVT ASSESSMENT AND PLAN: Acute hypoxic respiratory failure - likely 2/2 COVID19 pneumonia; less likely 2/2 superimposed bacterial infection - Patient has felt better while on CPAP; will continue with Vapotherm therapy during the day - Physical without any wheezing noted - Inflammatory markers are fluctuant, CRP, BNP, LDH, ferritin, fibrinogen jhony nding up. D dimer trending down. - Symptom onset 08/01; COVID19 positive on 08/05 - Imaging noted above - c/w Levofloxacin (Day #4); s/p Cefepime (5 day course) - procalcitonin remains negative, but is slowly trending up 0.14 -> 0.20 - stopped Corticosteroids (Solumedrol) on 08/12/20; s/p Dexamethasone - c/w incentive spirometry and symptomatic control Chronic COPD - No appreciable wheezing - See above - Continue with inhaled therapy as ordered IDDM2 - Patient has frequent episodes of DKA - c/w ISS and Levemir - hypoglycemic on 08/14, will reduce PM dose of levemir to 30 units qhs. Maintain 40 units daily. HTN - BP well controlled - c/w Losartan and Amlodipine Chronic atrial fibrillation - c/w full anticoagulation Recent DVT in left lower extremity - Duplex US 08/05: Left lower extremity deep venous thrombosis - c/w full anticoagulation CAD - c/w Atorvastatin - ASA allergy CKD3 - Cr baseline of 1.2-1.4 - Cr within baseline currently Nicotine dependence - c/w Nicotine patch Diabetic neuropathy - c/w Pregabalin GI prophylaxis - c/w Protonix DVT prophylaxis - c/w Lovenox weight-based therapeutic dosing GOC: patient verbalized to me this morning that he does not wish to be intubated and that he does not want chest compressions. He wishes to be a DNR/DNI. Orders changed. I spoke to patient's partner Yuly Hamlin (tel: [phone]) and updated her as to code status change and patient's progress. She is aware of poor prognosis. Patient has not other family per his partner that is involved in his life. MOLST form signed and witnessed to indicate DNR/DNI. VS, I&O, 24H, Fishbone Vital Signs/I&O Vital Signs Date Time Temp Pulse Resp B/P (MAP) Pulse Ox O2 Delivery O2 Flow Rate FiO2 08/14/20 08:30 150/65 08/14/20 08:29 96 08/14/20 05:04 80 08/14/20 04:00 99.0 08/14/20 04:00 22 95 NIPPV (BIPAP/CPAP) 08/13/20 20:05 40.0 I&O- Last 24 Hours up to 6 AM 08/14/20 06:00 Intake Total 720 ml Output Total 1350 ml Balance -630 ml Laboratory Data 24H LABS Laboratory Tests 2 08/13/20 12:26: Bedside Glucose (Misc Panel) 154H 08/13/20 17:16: Bedside Glucose (Misc Panel) 300H 08/13/20 20:46: Bedside Glucose (Misc Panel) 278H 08/14/20 04:56: Immature Granulocyte % (Auto) 1.1, Neutrophils (%) (Auto) 81.8H, Lymphocytes (%) (Auto) 11.7L, Monocytes (%) (Auto) 2.8, Eosinophils (%) (Auto) 2.4, Basophils (%) (Auto) 0.2, Neutrophils # (Auto) 10.1H, Lymphocytes # (Auto) 1.4L, Monocytes # (Auto) 0.4, Eosinophils # (Auto) 0.3, Basophils # (Auto) 0.0, Nucleated Red Blood Cells % (auto) 0.0, Fibrinogen 537H, D-Dimer, Quantitative 3324.17H, Anion Gap 5L, Glomerular Filtration Rate > 60.0, Calcium Level 8.1L, Magnesium Level 1.6L, Ferritin 844H, Total Bilirubin 0.5, Aspartate Amino Transf (AST/SGOT) 12, Alanine Aminotransferase (ALT/SGPT) 20, Alkaline Phosphatase 72, C-Reactive Protein, Quantitative 17.00H, OP-Eld-E-Type Natriuretic Peptide 533H, Total Protein 5.0L, Albumin 1.6L, Albumin/Globulin Ratio 0.5 08/14/20 08:01: Bedside Glucose (Misc Panel) 72L CBC/BMP Laboratory Tests 08/14/20 04:56 Microbiology Microbiology 08/04/20 Blood Culture - Final, Complete NO GROWTH AFTER 5 DAYS ADOLFO CORDOVA MD Aug 14, 2020 09:22
[2020-08-14] MEDS: ACETAMINOPHEN TAB 650MG DOSE (2X325MG) PO PRN ×2 (12:25→20:32)
[2020-08-14] MEDS: SENOKOT S TAB PO PRN (14:20)
[2020-08-14] MEDS ORDERED: METOPROLOL 5 MG/5 ML VIAL IV STA ×2 (18:59→19:06)
[2020-08-14] MEDS ORDERED: DIGOXIN INJ 0.5 MG/2 ML AMP (J1160) As Ordered ONE (19:10)
[2020-08-14] MEDS ORDERED: DIGOXIN INJ 0.5 MG/2 ML AMP (J1160) IV STA ×2 (19:10→19:15)
[2020-08-14 20:04] LABS: BASO % 0.1 % (0.0-1.0); EOS # 0.3 10^3/uL (0.0-0.5); EOS % 2.1 % (0.0-3.0); HEMATOCRIT 37.7 % (42.0-52.0); HEMOGLOBIN 12.3 g/dl (13.5-17.5); LYMPH # 1.3 10^3/uL (1.5-5.0); LYMPH % 8.5 % (24.0-44.0); MEAN CORPUSCULAR HEMOGLOBIN 29.8 pg (27.0-33.0); MEAN CORPUSCULAR HGB CONC 32.6 g/dl (32.0-36.5); MEAN CORPUSCULAR VOLUME 91.3 fl (80.0-96.0); MONO # 0.4 10^3/uL (0.0-0.8); MONO % 2.9 % (0.0-5.0); NEUTROPHILS # 12.8 10^3/uL (1.5-8.5); NEUTROPHILS % 85.3 % (36.0-66.0); PLATELET COUNT, AUTOMATED 224 10^3/uL (150-450); RED BLOOD COUNT 4.13 10^6/uL (4.30-6.10)
[2020-08-14 20:29] LABS: BLOOD UREA NITROGEN 39 MG/DL (7-18); CALCIUM LEVEL 7.6 MG/DL (8.8-10.2); CARBON DIOXIDE LEVEL 31 MEQ/L (21-32); CHLORIDE LEVEL 107 MEQ/L (98-107); CREATININE FOR GFR 1.31 MG/DL (0.70-1.30); GLOMERULAR FILTRATION RATE 58.1 (>49); GLUCOSE, FASTING 159 MG/DL (70-100); MAGNESIUM LEVEL 1.6 MG/DL (1.8-2.4); NT-PRO BNP 401 PG/ML (<125); POTASSIUM SERUM 3.8 MEQ/L (3.5-5.1); SODIUM LEVEL 141 MEQ/L (136-145); TROPONIN I < 0.02 NG/ML (< 0.10)
[2020-08-14] MEDS ORDERED: DIGOXIN INJ 0.5 MG/2 ML AMP (J1160) IV ONE (21:00)
[2020-08-14] MEDS ORDERED: LEVEMIR (INSULIN DETEMIR) 1 UNITS/0.01ML SC SCH (21:00)
[2020-08-14] MEDS ORDERED: METOPROLOL TART 25 MG TABLET PO SCH (21:00)
[2020-08-14] MEDS ORDERED: AMIODARONE HCL 150 MG in IV 1 EA IV SCH (22:45)
[2020-08-14] MEDS ORDERED: AMIODARONE HCL 150 MG in IV 1 EA IV STA (23:16)
[2020-08-15] VITALS (12 sets, daily range): BP systolic 115–152; BP diastolic 40–100
[2020-08-15 04:54] LABS: BASO % 0.2 % (0.0-1.0); EOS # 0.2 10^3/uL (0.0-0.5); EOS % 1.1 % (0.0-3.0); HEMATOCRIT 38.6 % (42.0-52.0); HEMOGLOBIN 12.7 g/dl (13.5-17.5); LYMPH % 6.2 % (24.0-44.0); MEAN CORPUSCULAR HEMOGLOBIN 30.1 pg (27.0-33.0); MEAN CORPUSCULAR HGB CONC 32.9 g/dl (32.0-36.5); MEAN CORPUSCULAR VOLUME 91.5 fl (80.0-96.0); MONO # 0.5 10^3/uL (0.0-0.8); MONO % 2.9 % (0.0-5.0); NEUTROPHILS # 14.7 10^3/uL (1.5-8.5); NEUTROPHILS % 88.7 % (36.0-66.0); PLATELET COUNT, AUTOMATED 193 10^3/uL (150-450); RED BLOOD COUNT 4.22 10^6/uL (4.30-6.10); WHITE BLOOD COUNT 16.6 10^3/uL (4.0-10.0)
[2020-08-15] MEDS ORDERED: FLEET ENEMA PR PRN (05:15)
[2020-08-15] MEDS ORDERED: LORazepam 2 MG/ML VIAL IV PRN (05:15)
[2020-08-15] MEDS ORDERED: MORPHINE 2 MG/ML 1ML VIAL (J2270) IV PRN (05:15)
[2020-08-15] MEDS ORDERED: ONDANSETRON 4MG/2ML VIAL IV PRN (05:15)
[2020-08-15] MEDS ORDERED: SCOPOLAMINE 1MG TRANSDERMAL PATCH TOP PRN (05:15)
[2020-08-15] MEDS ORDERED: BISACODYL 10 MG SUPP PR PRN (05:15)
[2020-08-15] MEDS ORDERED: ATROPINE SULFATE 1% OP SOLN 2 ML BTL SL PRN (05:15)
[2020-08-15 05:17] LABS: FIBRINOGEN 747 MG/DL (221-452)
[2020-08-15 05:23] LABS: ALBUMIN 1.4 GM/DL (3.2-5.2); ALT/SGPT 19 U/L (12-78); BILIRUBIN,TOTAL 0.4 MG/DL (0.2-1.0); BLOOD UREA NITROGEN 39 MG/DL (7-18); CARBON DIOXIDE LEVEL 33 MEQ/L (21-32); CHLORIDE LEVEL 106 MEQ/L (98-107); CREATININE FOR GFR 1.17 MG/DL (0.70-1.30); FERRITIN 1097 NG/ML (26-388); GLOMERULAR FILTRATION RATE > 60.0 (>49); GLUCOSE, FASTING 169 MG/DL (70-100); MAGNESIUM LEVEL 1.9 MG/DL (1.8-2.4); NT-PRO BNP 1224 PG/ML (<125); POTASSIUM SERUM 4.1 MEQ/L (3.5-5.1); SODIUM LEVEL 141 MEQ/L (136-145); TOTAL PROTEIN 4.6 GM/DL (6.4-8.2)
[2020-08-15] MEDS ORDERED: LORazepam 2 MG/ML VIAL As Ordered ONE (05:27)
[2020-08-15 06:51] LABS: D-DIMER QUANT > 4000 ng/ml (<500)
--- NOTE | 2020-08-15 07:46 | IPNPDOC ---
Text Note Date of Service The patient was seen on 08/15/20. NOTE I was called by Danii Trent STORE SPECIALIST at approximately 500AM to inform me that the patient had elected to transition to [facility] and would like his significant other at the bedside. She informed me that she would call the RN audit clerks supervisor to approve this request. #[facility] Plan: d/c non-essential meds and vitals / place [facility] order set VS,Fishbone, I+O VS, Fishbone, I+O Laboratory Tests 08/14/20 19:47 08/15/20 04:22 Vital Signs Date Time Temp Pulse Resp B/P (MAP) Pulse Ox O2 Delivery O2 Flow Rate FiO2 08/15/20 06:03 149 35 145/72 62 HVNI-Vapotherm 40.0 100 08/15/20 00:00 98.6 I&O- Last 24 Hours up to 6 AM 08/15/20 06:00 Intake Total 1325 ml Output Total 1050 ml Balance 275 ml LATOYA ROMERO MD Aug 15, 2020 07:46
[2020-08-15 08:49] LABS: RSV AMPLIFICATION NEGATIVE (NEGATIVE)
[2020-08-15] MEDS ORDERED: LEVEMIR (INSULIN DETEMIR) 1 UNITS/0.01ML SC SCH (09:00)
--- NOTE | 2020-08-16 19:12 | DS.PDOC ---
Discharge Summary General Date of Admission Aug 04, 2020 at 02:35 Date of Discharge 08/15/2020 Discharge Summary PROCEDURES PERFORMED DURING STAY: [None]. ADMITTING DIAGNOSES: Acute hypoxic hypercarbic respiratory failure likely 2/2 pneumonia, covid suspected IDDM Chronic atrial fibrillation CAD HTN CKD3 Hx of DVT COPD Neuropathy Smoker DISCHARGE DIAGNOSES: Acute hypoxic hypercarbic respiratory failure likely 2/2 pneumonia, covid suspected Confirmed COVID-19 pneumonia IDDM Chronic atrial fibrillation CAD HTN CKD3 Hx of DVT COPD Neuropathy Smoker COMPLICATIONS/CHIEF COMPLAINT: Hypoxia,Hypoglycemia,Pneumonia. HISTORY OF PRESENT ILLNESS: 65-year-old male with a history of IDDM, CAD/A. fib with RVR/chronic systolic CHF/hypertension/COPD, recently admitted for the management of DKA returns to the ED with progressively worsening shortness of breath for the past 3 days along with weakness subjective fevers and chills and a productive cough. Patient denies chest pain, palpitations, abdominal pain, blood in the stool, nausea, vomiting or diarrhea. Temp 100.3. Pulse 94, respiratory 20, blood pressure 133/66, pulse ox 88% on room air. PH 7.54. Base excess 6. PO2 73. CO2 33.9, bicarbonate 20.9. Blood glucose 33. BNP 221. Troponin negative. Cr 1.3. BUN 18. CXR showing bilateral pulmonary infiltrates, R > L. COVID-19 negative in ER HOSPITAL COURSE: Acute hypoxic respiratory failure - likely 2/2 COVID19 pneumonia; less likely 2/2 superimposed bacterial infection - Patient has felt better while on CPAP but it became difficult to tolerate. Patient elected to proceed with comfort measures and did not wish further therapy. - Patient on 08/15/20 - Inflammatory markers are fluctuant, CRP, BNP, LDH, ferritin, fibrinogen trending up. D dimer trending down. - Symptom onset 08/01; COVID19 positive on 08/05 - Levofloxacin (4 days); s/p Cefepime (5 day course) - procalcitonin remains negative, but is slowly trending up 0.14 -> 0.20 - stopped Corticosteroids (Solumedrol) on 08/12/20; s/p Dexamethasone - incentive spirometry and symptomatic control Chronic COPD - Continue with inhaled therapy as ordered IDDM2 - Patient has frequent episodes of DKA - ISS and Levemir - hypoglycemic on 08/14,PM dose of levemir to 30 units qhs. Maintain 40 units daily. HTN - BP well controlled - Losartan and Amlodipine Chronic atrial fibrillation - full anticoagulation Recent DVT in left lower extremity - Duplex US 08/05: Left lower extremity deep venous thrombosis - full anticoagulation CAD - Atorvastatin - ASA allergy CKD3 - Cr baseline of 1.2-1.4 - Cr within baseline currently Nicotine dependence - Nicotine patch Diabetic neuropathy - Pregabalin GI prophylaxis - Protonix DVT prophylaxis - Lovenox weight-based therapeutic dosing DISCHARGE MEDICATIONS: Please see below. ALLERGIES: Please see below. PHYSICAL EXAMINATION ON DISCHARGE: . LABORATORY DATA: Please see below. IMAGING: CXR (08/03/20): Bilateral pulmonary infiltrates, right greater than left. Findings have progressed in comparison to the prior study of 11/22/2018. Possibility of multifocal pneumonitis to be considered. CXR (08/05/20) Moderate bilateral airspace disease with underlying chronic emphysematous and fibrotic changes. Findings are relatively stable compared to recent prior examination. Bilateral venous duplex (08/05/20): Left lower extremity deep venous thrombosis PROGNOSIS: DISPOSITION: 20 . DISCHARGE CONDITION: TIME SPENT ON DISCHARGE: 25 minutes Vital Signs/I&Os Vital Signs Date Time Temp Pulse Resp B/P (MAP) Pulse Ox O2 Delivery O2 Flow Rate FiO2 08/15/20 06:03 149 35 145/72 62 HVNI-Vapotherm 40.0 100 08/15/20 04:00 98.6 Discharge Medications Scheduled Amlodipine Besylate (Amlodipine Besylate) 5 Mg Tablet, 5 MG PO DAILY, (Reported) Apixaban (Eliquis) 5 Mg Tablet, 5 MG PO BID, (Reported) Atorvastatin Calcium (Atorvastatin Calcium) 40 Mg Tablet, 40 MG PO DAILY, (Reported) Docusate Sodium (Dok) 100 Mg Tablet, 100 MG PO BID, (Reported) Insulin Glargine,Hum.rec.anlog (Lantus Solostar) 100 Unit/1 Ml Insuln.pen, 85 UNITS SC DAILY, (Reported) Insulin Human Regular (Humulin R) 100 Unit/1 Ml Vial, 18 UNITS SC TID, (Reported) Losartan Potassium (Losartan Potassium) 50 Mg Tablet, 50 MG PO DAILY, (Reported) Pregabalin (Lyrica) 100 Mg Capsule, 100 MG PO DAILY, (Reported) PATIENT S/O STATES SUPPOSED TO TAKE TID Scheduled PRN Acetaminophen (Acetaminophen) 500 Mg Tablet, 1,000 MG PO Q6H PRN for PAIN, (Reported) Allergies Coded Allergies: aspirin (Verified Allergy, Intermediate, swelling, 11/22/18) ADOLFO CORDOVA MD Aug 16, 2020 19:12
== END 2020-08-15 08:01 | disposition expired | DRG 177 ==
LOC: M ED 19:42 → M ED INP 08-04 02:35 → ENRESERV 08-04 03:02 → M MSPAV 08-04 05:30 → M PCU 08-05 07:00 → M 4MAIN 08-05 20:06 → M ICU 08-09 18:37
PROVIDERS: ADMIT Family Medicine; ATTEND Family Medicine
PROC: XW033E5 Introduction of Remdesivir Anti-infective into Peripheral Vein, Percutaneous Approach, New Technology Group 5 (ICD-10-PCS; principal; 2020-08-05)
PROC: 3E0333Z Introduction of Anti-inflammatory into Peripheral Vein, Percutaneous Approach (ICD-10-PCS; 2020-08-05)
PROC: 5A09457 Assistance with Respiratory Ventilation, 24-96 Consecutive Hours, Continuous Positive Airway Pressure (ICD-10-PCS; 2020-08-09)
DX: U07.1 COVID-19 (principal); J96.01 Acute respiratory failure with hypoxia; J96.02 Acute respiratory failure with hypercapnia; J12.82 Pneumonia due to coronavirus disease 2019; I50.22 Chronic systolic (congestive) heart failure; I48.20 Chronic atrial fibrillation, unspecified; I13.0 Hypertensive heart and chronic kidney disease with heart failure and stage 1 through stage 4 chronic kidney disease, or unspecified chronic kidney disease; J44.0 Chronic obstructive pulmonary disease with (acute) lower respiratory infection; I82.432 Acute embolism and thrombosis of left popliteal vein; I82.412 Acute embolism and thrombosis of left femoral vein; Z51.5 Encounter for palliative care; Z66 Do not resuscitate; E11.22 Type 2 diabetes mellitus with diabetic chronic kidney disease; I25.10 Atherosclerotic heart disease of native coronary artery without angina pectoris; E78.5 Hyperlipidemia, unspecified; F40.01 Agoraphobia with panic disorder; F32.9 Major depressive disorder, single episode, unspecified; F17.200 Nicotine dependence, unspecified, uncomplicated; N18.30 Chronic kidney disease, stage 3 unspecified; K59.00 Constipation, unspecified; I83.90 Asymptomatic varicose veins of unspecified lower extremity; E11.649 Type 2 diabetes mellitus with hypoglycemia without coma; Z86.711 Personal history of pulmonary embolism; Z11.52 Encounter for screening for COVID-19; Z98.41 Cataract extraction status, right eye; Z98.42 Cataract extraction status, left eye; E11.40 Type 2 diabetes mellitus with diabetic neuropathy, unspecified; T45.516A Underdosing of anticoagulants, initial encounter; Z91.120 Patient's intentional underdosing of medication regimen due to financial hardship; Z79.4 Long term (current) use of insulin; Z79.899 Other long term (current) drug therapy; Z88.6 Allergy status to analgesic agent; Z95.5 Presence of coronary angioplasty implant and graft